=== PATIENT | female | born 1945 | race Caucasian/White ===

== ENCOUNTER → 2019-08-16 10:46 | Outpatient (BNVA) | payer MEDICARE, OTHER, SELFPAY | PROVIDERS: Visit Provider Family Medicine | DX: E78.5 Hyperlipidemia, unspecified (principal); F41.9 Anxiety disorder, unspecified; E55.9 Vitamin D deficiency, unspecified; E05.90 Thyrotoxicosis, unspecified without thyrotoxic crisis or storm; K21.9 Gastro-esophageal reflux disease without esophagitis; E78.2 Mixed hyperlipidemia | CPT/HCPCS: 80053; 80061; 82306; 84439; 84443; 84481; 85025 ==

== ENCOUNTER → 2019-08-22 16:56 | Outpatient (BNVA) | payer MEDICARE, OTHER, SELFPAY | PROVIDERS: Visit Provider Family Medicine | DX: R50.9 Fever, unspecified (principal); B34.9 Viral infection, unspecified | CPT/HCPCS: 87804 ==

== ENCOUNTER → 2019-09-07 08:57 | Outpatient (BNVA) | payer MEDICARE, OTHER, SELFPAY | PROVIDERS: Visit Provider Nurse Practitioner Family | DX: B34.9 Viral infection, unspecified (principal); N30.20 Other chronic cystitis without hematuria | CPT/HCPCS: 81001 ==

== ENCOUNTER → 2020-01-27 09:53 | Outpatient (BNVA) | payer MEDICARE, OTHER, SELFPAY | PROVIDERS: PCP Family Medicine; Visit Provider Internal Medicine | DX: E05.10 Thyrotoxicosis with toxic single thyroid nodule without thyrotoxic crisis or storm (principal); E04.2 Nontoxic multinodular goiter; M89.9 Disorder of bone, unspecified | CPT/HCPCS: 99203 ==

== ENCOUNTER → 2020-02-06 11:23 | Outpatient (BNVA) | payer MEDICARE, OTHER, SELFPAY | PROVIDERS: PCP Family Medicine; Visit Provider Family Medicine | DX: I10 Essential (primary) hypertension (principal); E78.2 Mixed hyperlipidemia; E05.10 Thyrotoxicosis with toxic single thyroid nodule without thyrotoxic crisis or storm | CPT/HCPCS: 80053; 80061; 84439; 84443; 84480; 85025 ==

== ENCOUNTER 2020-02-15 11:35 | Outpatient (CLI) | payer MEDICARE, OTHER, SELFPAY ==
--- NOTE | 2020-02-15 11:45 | US_ITS ---
WS: [id number] THYROID ULTRASOUND HISTORY: thyroid nodules COMPARISON: 12/16/2016 Right lobe: 5.0 cm x 2.5 cm x 2.1 cm. Volume: 13.2 cm3. Moderately enlarged gland. There are several mixed cystic and solid nodules throughout the thyroid. I n the mid gland there is a 2.7 x 1.7 x 2.1 cm mass with solid and cystic components and increased vas cularity. Smaller solid nodule in the inferior pole measures 1.2 x 0.8 x 1.0 cm. Left lobe: 5.0 cm x 1.8 cm x 2.1 cm. Volume: 10.0 cm3. Mildly enlarged gland with variable heterogeneity. There are cystic and solid components. Cystic nodu le with a solid component in the mid LEFT gland measures 1.1 x 0.8 x 1.0 cm and is stable. There are additional solid and cystic nodules. Isthmus: 0.4 cm. US/US thyroid 62595 IMPRESSION: Multinodular goiter. There are multiple masses bilaterally which demonstrate mi nimal progression since 12/16/2016. Cannot exclude malignancy. Fine-needle aspir ation can be performed on the most concerning nodule in the RIGHT lobe if clini ambrose thought relevant at this time. This was also recommended on the prior heather dy from 2017.
== END 2020-02-15 11:36 | disposition home or self-care (01) ==
LOC: RAD 11:37
PROVIDERS: PCP Family Medicine; Visit Provider Internal Medicine
DX: E04.2 Nontoxic multinodular goiter (principal)
CPT/HCPCS: 76536

== ENCOUNTER → 2020-02-28 08:11 | Outpatient (BNVA) | payer MEDICARE, OTHER, SELFPAY | PROVIDERS: PCP Family Medicine; Visit Provider Internal Medicine | DX: E04.2 Nontoxic multinodular goiter (principal); E05.90 Thyrotoxicosis, unspecified without thyrotoxic crisis or storm; M85.80 Other specified disorders of bone density and structure, unspecified site | CPT/HCPCS: 99214 ==

== ENCOUNTER → 2020-05-21 08:23 | Outpatient (BNVA) | payer MEDICARE, OTHER, SELFPAY | PROVIDERS: PCP Family Medicine; Visit Provider Internal Medicine | DX: E05.90 Thyrotoxicosis, unspecified without thyrotoxic crisis or storm (principal) | CPT/HCPCS: 84439; 84443; 84480 ==

== ENCOUNTER → 2020-05-29 08:11 | Outpatient (BNVA) | payer MEDICARE, OTHER, SELFPAY | PROVIDERS: PCP Family Medicine; Visit Provider Internal Medicine | DX: E04.2 Nontoxic multinodular goiter (principal); E05.90 Thyrotoxicosis, unspecified without thyrotoxic crisis or storm; M85.89 Other specified disorders of bone density and structure, multiple sites | CPT/HCPCS: 99214 ==

== ENCOUNTER → 2020-08-22 10:20 | Outpatient (BNVA) | payer MEDICARE, OTHER, SELFPAY | PROVIDERS: PCP Family Medicine; Visit Provider Internal Medicine | DX: E05.90 Thyrotoxicosis, unspecified without thyrotoxic crisis or storm (principal); E04.2 Nontoxic multinodular goiter | CPT/HCPCS: 83516; 84439; 84443; 84480 ==

== ENCOUNTER → 2020-08-28 08:45 | Outpatient (BNVA) | payer MEDICARE, OTHER, SELFPAY | PROVIDERS: PCP Family Medicine; Visit Provider Internal Medicine | DX: E04.2 Nontoxic multinodular goiter (principal); E05.90 Thyrotoxicosis, unspecified without thyrotoxic crisis or storm; K21.9 Gastro-esophageal reflux disease without esophagitis | CPT/HCPCS: 99214 ==

== ENCOUNTER → 2020-09-06 09:58 | Outpatient (BNVA) | payer MEDICARE, OTHER, SELFPAY | PROVIDERS: PCP Family Medicine; Visit Provider Nurse Practitioner Family | DX: N30.20 Other chronic cystitis without hematuria (principal); E05.90 Thyrotoxicosis, unspecified without thyrotoxic crisis or storm; E04.2 Nontoxic multinodular goiter | CPT/HCPCS: 81003; 87077; 87086; 87184 ==

== ENCOUNTER 2020-09-24 06:51 | Outpatient (CLI) | payer MEDICARE, OTHER, SELFPAY ==
--- NOTE | 2020-09-24 07:15 | US_ITS ---
WS: [id number] THYROID ULTRASOUND (TI-RADS CRITERIA) History: 02/15/2020 and 12/16/2016. Technique: Ultrasound examination of the thyroid and adjacent soft tissues is performed. FINDINGS: Right lobe: 4.9 cm x 2.2 cm x 2.4 cm. Volume: 13.8 cm3. Enlarged RIGHT thyroid do to a large hypervascular nodule. Large nodule replacing nearly the entire g land. Small adjacent subcentimeter lymph nodes. NODULE: 1 Size: 2.1 x 2.2 x 2.9 cm Location: Mid RIGHT Composition: Mixed cystic and solid (1) Echogenicity: Hypoechoic (2) Shape: Not taller than wide (0) Margins: Extra-thyroidal extension (3) Echogenic foci: Punctate echogenic foci (3) ACR TI-RADS total points: 9 ACR TI-RADS risk category: TR5 Left lobe: 4.6 cm x 1.4 cm x 1.9 cm. Volume: 6.2 cm3. Normal size and echotexture. No significant or dominant nodules are present. NODULE: 3 Size: 1.0 x 0.7 x 1.2 cm. Location: Mid LEFT. Composition: Mixed cystic and solid (1) Echogenicity: Hypoechoic (2) Shape: Not taller than wide (0) Margins: Smooth (0) Echogenic foci: None (0) ACR TI-RADS total points: 3 ACR TI-RADS risk category: TR3 Isthmus: 0.7 cm. Nodule in the isthmus. NODULE: 2 Size: 1.4 x 0.7 x 1.7 cm. Location: Mid isthmus. Composition: Solid/almost completely solid (2) Echogenicity: Hypoechoic (2) Shape: Not taller than wide (0) Margins: Smooth (0) Echogenic foci: None (0) ACR TI-RADS total points: 4 ACR TI-RADS risk category: TR4 US/US thyroid 30845 Impression: TR5 Recommendation:Yara suspicious for malignancy. By history this nodule has been biopsied and was negative. Some of the margins are very lobulated and there ar e increasing calcifications. Consider surgical removal. If thyroid nodule(s) change on follow-up examinations the recommendations will be altered as necessary.
== END 2020-09-24 06:52 | disposition home or self-care (01) ==
LOC: RAD 06:58
PROVIDERS: PCP Family Medicine; Visit Provider Internal Medicine
DX: E04.2 Nontoxic multinodular goiter (principal)
CPT/HCPCS: 76536

== ENCOUNTER → 2020-09-27 13:46 | Outpatient (BNVA) | payer MEDICARE, OTHER, SELFPAY | PROVIDERS: PCP Family Medicine; Visit Provider Nurse Practitioner Family | DX: N30.20 Other chronic cystitis without hematuria (principal); R30.0 Dysuria | CPT/HCPCS: 81003 ==

== ENCOUNTER → 2020-10-12 10:32 | Outpatient (BNVA) | payer MEDICARE, OTHER, SELFPAY | PROVIDERS: PCP Family Medicine; Visit Provider Otolaryngology | DX: Z20.822 Contact with and (suspected) exposure to COVID-19 (principal); Z11.52 Encounter for screening for COVID-19; Z01.812 Encounter for preprocedural laboratory examination | CPT/HCPCS: 87635 ==

== ENCOUNTER 2020-10-17 06:28 | Day surgery (SDC) | payer MEDICARE, OTHER, SELFPAY ==
[2020-10-16 18:09] VITALS: BMI 24.7
[2020-10-17] VITALS (13 sets, daily range): BP systolic 125–158; BP diastolic 56–112; PULSE 95–106; RESP 16–18; TEMP 36.4–36.6; O2SAT 90–96
--- NOTE | 2020-10-17 06:36 | ECG_ITS ---
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
[2020-10-17] MEDS: sodium chloride 0.9% 1,000 ML 30 ML IV (06:50)
--- NOTE | 2020-10-17 07:36 | W.PM.OPSUD ---
Surgery/Procedure H&P Update DATE OF PROCEDURE: October 17, 2020 DATE H&P PERFORMED: 10/04/20 H&P UPDATE INFORMATION: I have reviewed H&P completed within last 30 days, I have examined patient prior to procedure and No changes to prior documentation PREOP DIAGNOSIS: Right thyroid mass PRIMARY INDICATION FOR PROCEDURE: Right thyroid nodule PLANNED PROCEDURE: Operation Date: 10/17/20 08:40 Proposed Procedures p RIGHT THYROID LOBECTOMY 14801 e04.1(Not Applicable) - Blas Burton MD
--- NOTE | 2020-10-17 07:36 | ANES.PREANE2 ---
Pre-Anesthetic Assessment Pre-Anesthetic Assessment: Height/Weight: Height 1.63 m Weight 65.317 kg Preop Diagnosis: Right thyroid mass Proposed Procedure: Operation Date: 10/17/20 08:40 Proposed Procedures p RIGHT THYROID LOBECTOMY 98926 e04.1(Not Applicable) - Blas Burton MD Was Beta Radha taken within 24 hours: N/A Was Clonidine taken within 24 hours: N/A Last intake: Intake Last Liquid Date 10/16/20 Last Liquid Time 21:00 Last Solid Date 10/16/20 Last Solid Time 17:00 Social: Social History: No alcohol and No tobacco Exam: Pre-Anes Outpt Exam: alert, oriented x 3, clear to auscultation bilaterally and regular rate & rhythm Airway: Submandibular: WNL Cervical ROM: WNL MP: 2 Dentition: Full CV/HEM: CV/HEM: HTN GI: GI: GERD Metabolic: Metabolic: Thyroid Neuropsych: Neuropsych: Anxiety Anesthetic Plan: ASA status: 2 Anesthesia: General Risk of > 500 ml blood loss (7ml/kg in children): No PFSH Anesthesia PFSH: Medical History Chronic cystitis GERD (gastroesophageal reflux disease) Hyperlipidemia Hypertension Situational anxiety Takotsubo cardiomyopathy Vitamin D deficiency Surgical History History of cholecystectomy (~1988) History of tubal ligation (~1979) Family History Mother , AT AGE 97 COLON CANCER Cancer Father , AT AGE 72 CHF No problems noted. Sister Cancer Social History Smoking and tobacco status: never smoked Alcohol intake: never Adopted: No Caregiver/support person: No Lives independently: No Household members: spouse Marital status: Current occupational status: unemployed History of recent travel: No Current gender identity: Female Data Anesthesia Cardiac Studies: No Data to Display
[2020-10-17] MEDS: neomycin-poly-bacitracin oint 28 gm 1 APPLIC TOPICAL (10:08)
--- NOTE | 2020-10-17 10:12 | PM.OP ---
Operative Report Date of procedure: October 17, 2020 Pre-op Diagnosis: Right thyroid mass Post-op Diagnosis: Frozen section reveals benign necrotic solid and cystic mass with no evidence of malignancy Post-op Findings: Large multilobulated right thyroid with thick isthmus extending with mass affect across midline Procedure Done: Right thyroid lobectomy with isthmusectomy Specimens removed/disposition: Right thyroid lobe with isthmus Pathology: Entire right thyroid lobe with isthmus sent to pathology asking for frozen section and permanent pathology. Surgeon: Blas Burton Anesthesia: General and Local Estimated blood loss (mL): 30 Complications: No complications were encountered Findings: Multi lobulated right thyroid gland significantly enlarged both superior to inferior and anterior to posterior. Thick isthmus crossing midline. Condition: stable Disposition: PACU Brief History: 75-year-old female patient has had a right thyroid nodule which has been growing in size and becoming a problem for her in regards to swallowing. Always feels like there is a lump present. Scans revealed significant enlargement and wrapping around posteriorly and affecting the esophagus. Therefore this patient is being brought to the operating room to undergo a right thyroid lobectomy with isthmusectomy. The procedure its risks and complications were explained in detail. These risks include bleeding infection numbness scarring swelling bruising scarring postoperative bleeding hoarseness which could be temporary or permanent due to manipulation of the right recurrent laryngeal nerve. This could be temporary or permanent. This could lead to a breathy voice quality. Also could lead to problems with aspiration. More serious risk such as heart attack or stroke or not surviving the surgery were also discussed. With these things understood informed consent was granted. Procedure: Description of procedure: The patient was placed on the operating table in the supine position. Adequate general endotracheal tube anesthesia was obtained. She was given Ancef IV for prophylaxis. She was positioned with a shoulder roll under the shoulders and a doughnut under her head. This positioned the neck in a perfect position. The right neck was noted and the area was cleansed with alcohol. 5 mL of 2% Xylocaine with 1-100,000 epinephrine was utilized to infiltrate the skin from the right side across the midline to the left. The patient was then prepped with ChloraPrep and draped. A timeout was accomplished identifying the patient at plan procedure allergies fire risk and medications given. With all in agreement the procedure continued. A marking pen was used to outline a curvilinear incision in the lower neck skin crease line that had previously been infiltrated with local. The cut mode of the Bovie was used to cut through the skin and then the coagulation mode of the Bovie was used to carry down the incision through subcutaneous fat to the platysma muscle edges and these were cut for short distance on both sides. A subplatysmal flap was then raised superiorly to the area of the hyoid bone. The strap muscles were identified and the median raphae identified and using that median raphae the dissection was carried out uncovering the thyroid gland and the thyroid cartilage and trachea. This was done obviously more on the right side than the left. The isthmus of the thyroid is was extremely thick and lobulated and therefore it was decided to cut the isthmus at the junction with the left thyroid lobe and this was done with the cautery and bipolar cautery and clipping was where necessary to control bleeding. Then the dissection was carried over the top of the trachea elevating the isthmus portion. Then the dissection was carried out in a broad pattern from superior inferior and lateral. An Allis clamp was placed placed to the body of the right thyroid gland and this was retracted anteriorly releasing the large mass-effect of the right thyroid gland and nodules. Careful dissection was carried out posteriorly and laterally identifying nerve and vessels to the parathyroids and maintaining all important vessels. Larger vessels were clamped with clips and then cut. Smaller vessels were cauterized with bipolar cautery. As the dissection neared the insert of the nerve into the larynx only blunt dissection was carried out with no further cautery. Specimen was finally released and sent to the pathologist for frozen section diagnosis. The defect from the surgery was evaluated and irrigated with sterile water. Any bleeding that was encountered was cauterized. There was a little ooze at the insert of the recurrent nerve and therefore some Surgicel was placed at that location with pressure applied. There was no active bleeding encountered. It was felt that no drain would be necessary. While pathology was pending I closed the subcutaneous layers with interrupted 4-0 chromic. The pathology then returned as benign necrotic cystic and solid components but no evidence of malignancy. With that information the skin was closed with skin lucinda and Neosporin ointment was applied followed by a dressing. No drain was placed. The patient tolerated the procedure well and arrived in recovery in stable condition.
[2020-10-17] MEDS: ondansetron 2 mg/ML SDV 2 mL 4 MG IVP (10:36)
[2020-10-17] MEDS: fentaNYL 50 mcg/mL INJ 2mL IVP ×2 (10:36→10:41)
[2020-10-17] MEDS: metoclopramide 5 mg/mL SDV 2 mL 10 MG IVP ×2 (10:40→10:49)
[2020-10-17] MEDS: dexamethasone 4 mg/mL INJ IVP (10:55)
[2020-10-17] MEDS: diphenhydrAMINE 50 mg/mL SDV 1mL 12.5 MG IVP (11:35)
--- NOTE | 2020-10-17 14:34 | ANE.PACU2 ---
Inpatient post-anesthesia follow up: Airway intact: Yes Vital signs: Temperature 97.7 F Pulse Rate 103 Respiratory Rate 18 Blood Pressure 145/77 Pulse Oximetry 92 Oxygen Delivery Me thod Room Air Oxygen Flow Rate 8 Fraction of Inspir ed Oxygen Hydration adequate: Yes Nausea and vomiting: Yes Pain level: 2 Mental status: Baseline
== END 2020-10-17 12:44 | disposition home or self-care (01) ==
PROVIDERS: PCP Family Medicine; Visit Provider Otolaryngology
PROC: (CPT 60220; principal; 2020-10-17 08:30)
DX: E04.1 Nontoxic single thyroid nodule (principal); I10 Essential (primary) hypertension; K21.9 Gastro-esophageal reflux disease without esophagitis; F41.9 Anxiety disorder, unspecified; Z79.82 Long term (current) use of aspirin
CPT/HCPCS: 60220; 88307; 93005; J0690; J1100; J1200; J2370; J2405; J2704; J2765; J3010; J3490; J7030

== ENCOUNTER → 2020-10-30 09:35 | Outpatient (BNVA) | payer MEDICARE, OTHER, SELFPAY | PROVIDERS: PCP Family Medicine; Visit Provider Family Medicine | DX: E05.90 Thyrotoxicosis, unspecified without thyrotoxic crisis or storm (principal); Z90.09 Acquired absence of other part of head and neck; F41.9 Anxiety disorder, unspecified | CPT/HCPCS: 84439; 84443; 84481 ==

== ENCOUNTER → 2021-01-23 11:21 | Outpatient (BNVA) | payer MEDICARE, OTHER, SELFPAY | PROVIDERS: PCP Family Medicine; Visit Provider Urology | DX: N30.20 Other chronic cystitis without hematuria (principal) | CPT/HCPCS: 81003; 87077; 87086; 87184 ==

== ENCOUNTER 2021-02-25 09:58 | Outpatient (CLI) | payer MEDICARE, OTHER, SELFPAY ==
[2021-02-25 10:24] VITALS: BP 126/73; PULSE 57; RESP 16; TEMP 37.1; O2SAT 98; BMI 23.8
[2021-02-25 10:58] VITALS: BP 118/67; PULSE 82; RESP 16; TEMP 36.9; O2SAT 93
[2021-02-25 11:58] VITALS: BP 119/58; PULSE 81; RESP 16; TEMP 36.9
== END 2021-02-25 09:59 | disposition home or self-care (01) ==
LOC: OPS 10:02
PROVIDERS: PCP Family Medicine; Visit Provider Physician Assistant
DX: U07.1 COVID-19 (principal)
CPT/HCPCS: 96365

== ENCOUNTER → 2021-04-17 11:26 | Outpatient (BNVA) | payer MEDICARE, OTHER, SELFPAY | PROVIDERS: PCP Family Medicine; Visit Provider Family Medicine | DX: E04.2 Nontoxic multinodular goiter (principal); E78.2 Mixed hyperlipidemia; F41.8 Other specified anxiety disorders; I10 Essential (primary) hypertension; K21.9 Gastro-esophageal reflux disease without esophagitis | CPT/HCPCS: 80053; 80061; 84436; 84443; 84481; 85025 ==

== ENCOUNTER → 2021-05-31 10:25 | Outpatient (BNVA) | payer MEDICARE, OTHER, SELFPAY | PROVIDERS: PCP Family Medicine; Visit Provider Internal Medicine | DX: E04.2 Nontoxic multinodular goiter (principal); E05.90 Thyrotoxicosis, unspecified without thyrotoxic crisis or storm; M81.0 Age-related osteoporosis without current pathological fracture; M85.89 Other specified disorders of bone density and structure, multiple sites; Z90.09 Acquired absence of other part of head and neck | CPT/HCPCS: 99214 ==

== ENCOUNTER → 2021-07-22 10:09 | Outpatient (BNVA) | payer MEDICARE, OTHER, SELFPAY | PROVIDERS: PCP Family Medicine; Visit Provider Nurse Practitioner Family | DX: N30.20 Other chronic cystitis without hematuria (principal) | CPT/HCPCS: 81003 ==

== ENCOUNTER → 2021-08-07 08:39 | Outpatient (BNVA) | payer MEDICARE, OTHER, SELFPAY | PROVIDERS: PCP Family Medicine; Visit Provider Internal Medicine | DX: E04.2 Nontoxic multinodular goiter (principal); E05.90 Thyrotoxicosis, unspecified without thyrotoxic crisis or storm; M81.0 Age-related osteoporosis without current pathological fracture; M85.89 Other specified disorders of bone density and structure, multiple sites; Z90.09 Acquired absence of other part of head and neck | CPT/HCPCS: 84439; 84443; 84480 ==

== ENCOUNTER → 2021-08-14 08:32 | Outpatient (BNVA) | payer MEDICARE, OTHER, SELFPAY | PROVIDERS: PCP Family Medicine; Visit Provider Internal Medicine | DX: E04.2 Nontoxic multinodular goiter (principal); E05.90 Thyrotoxicosis, unspecified without thyrotoxic crisis or storm; M81.0 Age-related osteoporosis without current pathological fracture; Z90.09 Acquired absence of other part of head and neck | CPT/HCPCS: 99214 ==

== ENCOUNTER 2021-08-20 10:37 | Outpatient (CLI) | payer MEDICARE, OTHER, SELFPAY ==
--- NOTE | 2021-08-20 10:30 | XR_ITS ---
WS: [id number] SCREENING DEXA SCAN [employer] CLINICAL INFORMATION: nodules, and partial thyroidectomy COMPARISON: None. FINDINGS: Moderate lumbar curve. The L1-L4 bone mineral density measures 1.135 g/cm2. This corresponds to a T score score of -0.4 and Z score of 1.4. Left femoral neck bone mineral density measures 0.741 g/cm2. This corresponds to a T score of -2.1 an d Z score of -0.3. Right femoral neck bone mineral density measures 0.679 g/cm2. This corresponds to a T score -2.6of an d Z score of -0.8. Mean femoral neck bone mineral density measures 0.710 g/cm2. This corresponds to a T score of -2.4 an d Z score of -0.5. XR/XR DEXA axial skeleton* [id number] IMPRESSION: Osteopenia approaching osteoporosis in the femoral necks. Normal bone mineraliz ation the lumbar spine although likely spuriously elevated due to endplate scle rosis Patient's FRAX calculated 10 year probability for major osteoporotic fracture i s 17.4 % and osteoporotic hip fracture is 5.6%.
== END 2021-08-20 10:38 | disposition home or self-care (01) ==
LOC: RAD 10:43
PROVIDERS: PCP Family Medicine; Visit Provider Internal Medicine
DX: E04.2 Nontoxic multinodular goiter (principal); E89.0 Postprocedural hypothyroidism; M85.88 Other specified disorders of bone density and structure, other site
CPT/HCPCS: 77080

== ENCOUNTER → 2021-09-13 10:25 | Outpatient (BNVA) | payer MEDICARE, OTHER, SELFPAY | PROVIDERS: PCP Family Medicine; Visit Provider Internal Medicine | DX: M81.0 Age-related osteoporosis without current pathological fracture (principal); E04.1 Nontoxic single thyroid nodule; E78.5 Hyperlipidemia, unspecified; M85.89 Other specified disorders of bone density and structure, multiple sites; I10 Essential (primary) hypertension; E04.2 Nontoxic multinodular goiter; E05.90 Thyrotoxicosis, unspecified without thyrotoxic crisis or storm; Z90.09 Acquired absence of other part of head and neck | CPT/HCPCS: 99214 ==

== ENCOUNTER → 2021-09-17 10:23 | Outpatient (BNVA) | payer MEDICARE, OTHER, SELFPAY | PROVIDERS: PCP Family Medicine; Visit Provider Internal Medicine | DX: E55.9 Vitamin D deficiency, unspecified (principal); M81.0 Age-related osteoporosis without current pathological fracture; M85.89 Other specified disorders of bone density and structure, multiple sites; E04.1 Nontoxic single thyroid nodule; E78.5 Hyperlipidemia, unspecified; Z90.09 Acquired absence of other part of head and neck; I10 Essential (primary) hypertension | CPT/HCPCS: 80053; 80061; 82306; 82310; 83970; 84439; 84443; 85025 ==

== ENCOUNTER 2021-10-07 09:25 | Outpatient (CLI) | payer MEDICARE, OTHER, SELFPAY ==
--- NOTE | 2021-10-07 09:31 | MM_ITS ---
WS: [id number] BILATERAL 3D TOMOSYNTHESIS DIGITAL SCREENING MAMMOGRAPHY WITH CAD CLINICAL INFORMATION: SCREENING HISTORY: Screening mammogram. No current complaints. COMPARISON: TECHNIQUE: Bilateral CC and MLO views. FINDINGS: Scattered fibroglandular densities bilaterally. Punctate and lucent centered calcifications. Nodular breast tissue subareolar LEFT breast similar to previous. No suspicious focal mass, asymmetry, calcif ications, or architectural distortion. No evidence of malignancy. MM/[place] [address] IMPRESSION: BI-RADS: 2-Benign FOLLOW UP: 1 Year Follow-up Recommend return to annual screening mammography.
== END 2021-10-07 09:26 | disposition home or self-care (01) ==
LOC: RADSHAW 09:27
PROVIDERS: PCP Family Medicine; Visit Provider Family Medicine
DX: Z12.31 Encounter for screening mammogram for malignant neoplasm of breast (principal)
CPT/HCPCS: 77063; 77067

== ENCOUNTER → 2021-11-11 08:55 | Outpatient (BNVA) | payer MEDICARE, OTHER, SELFPAY | PROVIDERS: PCP Family Medicine; Visit Provider Internal Medicine | DX: E04.1 Nontoxic single thyroid nodule (principal); E05.90 Thyrotoxicosis, unspecified without thyrotoxic crisis or storm; E55.9 Vitamin D deficiency, unspecified; E78.2 Mixed hyperlipidemia; M81.0 Age-related osteoporosis without current pathological fracture; Z90.09 Acquired absence of other part of head and neck | CPT/HCPCS: 82306; 82310; 83970; 84439; 84443 ==

== ENCOUNTER → 2022-01-07 13:49 | Outpatient (BNVA) | payer MEDICARE, OTHER, SELFPAY | PROVIDERS: PCP Family Medicine; Visit Provider Nurse Practitioner Family | DX: M25.551 Pain in right hip (principal) | CPT/HCPCS: 73502 ==

== ENCOUNTER → 2022-01-28 09:24 | Outpatient (BNVA) | payer MEDICARE, OTHER, SELFPAY | PROVIDERS: PCP Family Medicine; Visit Provider Orthopaedic Surgery | DX: M16.11 Unilateral primary osteoarthritis, right hip (principal) | CPT/HCPCS: 99203 ==

== ENCOUNTER → 2022-02-06 09:30 | Outpatient (BNVA) | payer MEDICARE, OTHER, SELFPAY | PROVIDERS: PCP Family Medicine; Visit Provider Internal Medicine | DX: E04.1 Nontoxic single thyroid nodule (principal); E05.90 Thyrotoxicosis, unspecified without thyrotoxic crisis or storm; E78.5 Hyperlipidemia, unspecified | CPT/HCPCS: 80048; 84439; 84443 ==

== ENCOUNTER → 2022-02-12 08:30 | Outpatient (BNVA) | payer MEDICARE, OTHER, SELFPAY | PROVIDERS: PCP Family Medicine; Visit Provider Internal Medicine | DX: E04.1 Nontoxic single thyroid nodule (principal); E04.2 Nontoxic multinodular goiter; E05.90 Thyrotoxicosis, unspecified without thyrotoxic crisis or storm; I10 Essential (primary) hypertension; E78.5 Hyperlipidemia, unspecified; M81.0 Age-related osteoporosis without current pathological fracture; Z90.09 Acquired absence of other part of head and neck | CPT/HCPCS: 99214 ==

== ENCOUNTER 2022-04-07 14:32 | Outpatient (CLI) | payer MEDICARE, OTHER, SELFPAY ==
--- NOTE | 2022-04-07 14:48 | MR_ITS ---
WS: [id number] MRI RIGHT HIP NONCONTRAST TECHNIQUE: Axial T1, axial T2 fat sat, coronal T1, coronal STIR, sagittal T2 fat sat, sagittal T1, an d sagittal T2 fat sat, of both hips. CLINICAL INFORMATION: pain COMPARISON: None. FINDINGS: Moderate degenerative arthritis RIGHT hip with joint space narrowing. Subchondral cystic change invol ving the femoral head. Joint space narrowing. No acute fractures. Normal femoral necks. Normal visual ized acetabulum. No evidence of avascular necrosis or femoral head collapse. Normal visualized RIGHT pubic rami. Normal visualized sacrum and sacral ala. No insufficiency fractures. Normal visualized RIGHT groin so ft tissues. Partially evaluated calcified uterine fibroid measuring 11 x 8 mm MR/MR hip RT wo con* [id number] IMPRESSION: 1. No acute RIGHT hip findings. 2. Moderate degenerative arthritis RIGHT hip with joint space narrowing and mendez bchondral cystic change. 3. No evidence of avascular necrosis or acute fracture.
== END 2022-04-07 14:33 | disposition home or self-care (01) ==
LOC: RAD 14:33
PROVIDERS: PCP Family Medicine; Visit Provider Orthopaedic Surgery
DX: M16.11 Unilateral primary osteoarthritis, right hip (principal)
CPT/HCPCS: 73721

== ENCOUNTER → 2022-05-06 08:09 | Outpatient (BNVA) | payer MEDICARE, OTHER, SELFPAY | PROVIDERS: PCP Family Medicine; Visit Provider Orthopaedic Surgery | DX: M16.11 Unilateral primary osteoarthritis, right hip (principal) | CPT/HCPCS: 99213 ==

== ENCOUNTER → 2022-07-04 12:52 | Outpatient (BNVA) | payer MEDICARE, OTHER, SELFPAY | PROVIDERS: PCP Family Medicine; Visit Provider Nurse Practitioner Family | DX: R13.10 Dysphagia, unspecified (principal); E55.9 Vitamin D deficiency, unspecified; I10 Essential (primary) hypertension; M85.89 Other specified disorders of bone density and structure, multiple sites | CPT/HCPCS: 80053; 80061; 82306; 84439; 84443; 85025 ==

== ENCOUNTER → 2022-07-15 13:47 | Outpatient (BNVA) | payer MEDICARE, OTHER, SELFPAY | PROVIDERS: PCP Family Medicine; Visit Provider Internal Medicine Cardiovascular Disease | DX: I10 Essential (primary) hypertension (principal); I51.81 Takotsubo syndrome; E78.2 Mixed hyperlipidemia; M81.0 Age-related osteoporosis without current pathological fracture | CPT/HCPCS: 99214; Q3014 ==

== ENCOUNTER → 2022-07-21 13:03 | Outpatient (BNVA) | payer MEDICARE, OTHER, SELFPAY | PROVIDERS: PCP Family Medicine; Visit Provider Urology | DX: Z87.440 Personal history of urinary (tract) infections (principal) | CPT/HCPCS: 81003; 99213 ==

== ENCOUNTER 2022-08-04 19:56 | Observation (INO) | payer MEDICARE, OTHER, SELFPAY ==
[2022-08-04] VITALS (26 sets, daily range): BP systolic 105–156; BP diastolic 64–114; PULSE 69; RESP 16–17; O2SAT 93–99; BMI 24.0
--- NOTE | 2022-08-04 20:12 | ECG_ITS ---
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 Measurements Intervals [place] Rate: 70 P: 55 [place]: 134 QRS: 65 QRSD: 89 T: 65 QT: 381 QTc: 411 Interpretive Statements SINUS RHYTHM Compared to ECG 10/17/2020 06:46:38 No significant changes Electronically Signed On 08-04-2022 20:35:29 [employer] by Macey Castro M.D. [id number]
--- NOTE | 2022-08-04 20:12 | XRR_ITS ---
PROCEDURE INFORMATION: Exam: XR Chest Exam date and time: 08/04/2022 8:32 PM Age: 77 years old Clinical indication: Pain; Chest pressure; Additional info: Cp TECHNIQUE: Imaging protocol: Radiologic exam of the chest. Views: 1 view. COMPARISON: CR XR chest 1V [id number] 12/14/2017 9:28 PM FINDINGS: Tubes, catheters and devices: Clips in the neck. Lungs: Calcified granuloma and mild atelectasis in the left lung base. The right lung is clear. Pleural spaces: Unremarkable. No pleural effusion. No pneumothorax. Heart/Mediastinum: Unremarkable. No cardiomegaly. Bones/joints: Unremarkable. XR/XR chest 1V portable [id number] IMPRESSION: No acute findings.
--- NOTE | 2022-08-04 20:26 | ED_ITS ---
HPI - Chest Pain General: Chief Complaint: ER Hold Stated Complaint: CP Time Seen by Provider: 08/04/22 20:26 History of Present Illness: Ms. Meehan is a 77-year-old lady with history of Takotsubo cardiomyopathy (2015), GERD, hypertension, hyperlipidemia, thyroid disorder presenting to the emergency department due to chest pain. She reports being at her baseline health and had onset of symptoms while at rest watching a game. She describes severe subacute in onset substernal chest heaviness associated with presyncope, nausea, vomiting, and generalized malaise. She notes radiation to the arm and neck and apparently appeared diaphoretic. She did have some improvement with nitroglycerin. Intensity symptoms at worst was moderate to severe. Course is improved though still present. No other specific changes in health, exacerbating, or alleviating factors identified. She does endorse rare history of similar episodes which typically go away with position changes and what she describes as massaging her ribs. This episode however did not. Onset (ago): hour(s) Onset: during rest Pain location: substernal Pain radiation: right arm, left arm and neck Severity: severe Quality: tightness Associated symptoms: Reports diaphoresis, dyspnea, nausea and other Review of Systems General: Reports: 10 or more systems reviewed and unremarkable except in HPI and below Const: Reports: diaphoresis Resp: Reports: dyspnea GI: Reports: nausea PFSH ED PFSH: Medical History Chest pain Chronic cystitis Dysphagia GERD (gastroesophageal reflux disease) History of COVID-19 Hyperlipidemia Hypertension Situational anxiety Takotsubo cardiomyopathy Unstable angina pectoris Vertigo Vitamin D deficiency Surgical History History of cholecystectomy (~1988) History of partial thyroidectomy History of tubal ligation (~1979) Family History Mother , AT AGE 97 COLON CANCER Cancer Father , AT AGE 72 CHF No problems noted. Sister Cancer Social History Smoking and tobacco status: never smoked Alcohol intake: never Adopted: No Caregiver/support person: No Lives independently: No Household members: spouse Marital status: Current occupational status: unemployed and retired Current gender identity: Female Physical Exam Const: COMMON NORMALS: alert GENERAL APPEARANCE: cooperative and well developed HENMT: COMMON NORMALS: normocephalic and atraumatic HEAD & SCALP: normocephalic and atraumatic Eye: COMMON NORMALS: conjunctivae normal CONJUNCTIVA: Yes conjunctivae normal SCLERA: sclerae normal Neck/C-Spine: COMMON NORMALS: supple GENERAL: Yes trachea midline Resp: COMMON NORMALS: clear to auscultation bilaterally EFFORT & INSPECTION: Yes able to speak in complete sentences AUSCULTATION: clear to auscultation bilaterally Cardio: COMMON NORMALS: regular rate and regular rhythm RATE: regular rate RHYTHM: regular rhythm GI: COMMON NORMALS: Soft to palpation PALPATION: Yes Soft to palpation and No Tenderness to palpation present (GI) Extremity: GENERAL: Yes normal exam except as noted and No edema Neuro: COMMON NORMALS: moves all extremities SENSORIUM/ORIENTATION: Yes alert and No Orientation impaired Psych: COMMON NORMALS: mental status grossly normal and Normal thought process present THOUGHT PROCESS: Normal thought process present Course Vital Signs: Vital signs: Vital Signs Pulse Rate 72 08/05/22 18:12 Respiratory Rate 14 08/05/22 16:00 Blood Pressure 124/53 08/05/22 18:12 Pulse Oximetry 98 08/05/22 18:12 Oxygen Delivery Me thod 08/05/22 16:00 MDM - Chest Pain Medical Decision Making 77-year-old lady with cardiac history presenting with chest pain that is all present with typical symptoms that began at rest. EKG notable for sinus rhythm, normal axis and intervals, no STEMI. Similar upon repeat. No significant hematologic or metabolic abnormalities to explain symptoms, mild transaminitis of uncertain significance. Negative range 2-hour delta troponin. Chest x-ray with no lobar consolidation or pneumothorax. Given transaminitis ultrasound ordered, no evidence of choledocholithiasis. Patient treated in the emergency [place] with GI cocktail, analgesia, nitroglycerin, antiemetic. Most likely etiology of patient symptoms is chest pain with a concerning clinical history for cardiac etiology in a patient that is not low risk by heart score. The results of ED evaluation were discussed with the patient including plan for admission due to requirement for level of care not available if discharged to prevent significant worsening/deterioration. Patient agreeable with plan. Discussed with hospitalist service who was agreeable to admit patient. Medical Records I reviewed the patient's medical records. Lab Data I reviewed the patient's lab results. 08/04/22 20:30 08/04/22 20:30 Radiology Impressions Chest X-Ray 08/04/22 20:12 IMPRESSION: No acute findings. Gallbladder Ultrasound 08/04/22 21:41 IMPRESSION: 1. Absent gallbladder with no definite acute finding. 2. 1.5 cm CBD, which may be due to postop status and/or age. Advise correlation. Modified Barium Swallow 08/05/22 08:21 IMPRESSION: No significant swallowing deficiency. Please see speech therapist report also for recommendations. Laboratory Results WBC 10.0 10^3/uL (4.0-10.0) 08/04/22 20: RBC 4.07 10^6/uL (4.1-5.3) L 08/04/22 20: Hgb 11.5 g/dL (11.5-15.3) 08/04/22 20: Hct 37.0 % (37.0-47.0) 08/04/22 20: MCV 90.9 fl (81-99) 08/04/22 20: MCH 28.3 pg (28.0-34.0) 08/04/22 20: MCHC 31.1 g/dL (30.0-36.0) 08/04/22 20: RDW 13.7 % (12.1-15.1) 08/04/22 20: Plt Count 315 10^3/cmm (130-400) 08/04/22 20: MPV 10.1 fL (7.4-10.4) 08/04/22 20: Neut % (Auto) 59.3 % 08/04/22 20: Lymph % (Auto) 26.4 % 08/04/22 20: Dougherty % (Auto) 10.5 % 08/04/22 20: Eos % (Auto) 2.8 % 08/04/22 20: Baso % (Auto) 0.3 % 08/04/22 20: Neut # (Auto) 5.91 10^3/uL (1.8-7.7) 08/04/22 20: Lymph # (Auto) 2.6 10^3/uL (0.8-4.8) 08/04/22 20:30 Dougherty # (Auto) 1.1 10^3/uL (0.2-0.9) H 08/04/22 20:30 Eos # (Auto) 0.3 10^3/uL (0.0-0.8) 08/04/22 20:30 Baso # (Auto) 0.0 10^3/uL (0.0-0.1) 08/04/22 20:30 Nucleated RBC % (auto) 0 % 08/04/22 20:30 Nucleated RBCs # 0.0 /100WBC 08/04/22 20:30 PT 12.70 SECONDS (12.1-14.9) 08/04/22 20:30 INR 0.92 (0.8-1.2) 08/04/22 20:30 Sodium 136 mmol/L (136-145) 08/04/22 20:30 Potassium 3.5 mmol/L (3.5-5.1) 08/04/22 20:30 Chloride 98 mmol/L (98-107) 08/04/22 20:30 Carbon Dioxide 26 mmol/L (22-29) 08/04/22 20:30 Anion Gap 15.5 (5-19) 08/04/22 20:30 BUN 21 mg/dL (8-23) 08/04/22 20:30 Creatinine 0.9 mg/dL (0.5-0.9) 08/04/22 20:30 GFR Calculation Not Reportable 08/04/22 20:30 Glucose 100 mg/dL (65-115) 08/04/22 20:30 Calculated Osmolality 285 mOsm/kg (285-295) 08/04/22 20:30 Calcium 8.5 mg/dL (8.5-10.5) 08/04/22 20:30 Total Bilirubin 0.2 mg/dL (0.15-1.2) 08/04/22 20:30 AST 83 U/L (0-32) H 08/04/22 20:30 ALT 39 U/L (0-33) H 08/04/22 20:30 Alkaline Phosphatase 94 U/L (35-105) 08/04/22 20:30 Troponin T Baseline 9 ng/L (0-10) 08/04/22 20:30 Troponin T 120 Minute 9.23 ng/L (0-10) 08/04/22 22:48 Delta Troponin T 0.23 ABS# (0-10) 08/04/22 22:48 Total Protein 6.1 g/dL (6.6-8.7) L 08/04/22 20:30 Albumin 3.8 g/dL (3.5-5.2) 08/04/22 20:30 Globulin 2.3 g/dL (1.3-4.6) 08/04/22 20:30 Lipase 34 U/L (13-60) 08/04/22 20:30 Influenza Type A Ag negative (Negative) 08/05/22 00:00 Influenza Type B Ag negative (Negative) 08/05/22 00:00 SARS-CoV-2 Ag (Rapid) negative (Negative) 08/05/22 00:00 Discharge Plan Discharge Patient Disposition: Placed in Observation Admit Provider: Laurie Flower Clinical Impression: Chest pain, Unstable angina pectoris Coding Level of Care Code ED Internal Control Consultant for Kei Dunham
[2022-08-04 20:39] LABS: Basophils % 0.3 %; Eosinophils # 0.3 10^3/uL (0.0-0.8); Eosinophils % 2.8 %; Hemoglobin 11.5 g/dL (11.5-15.3); Lymphocytes # 2.6 10^3/uL (0.8-4.8); Lymphocytes % 26.4 %; Mean Corpuscular HGB Conc 31.1 g/dL (30.0-36.0); Mean Corpuscular Hemoglobin 28.3 pg (28.0-34.0); Mean Corpuscular Volume 90.9 fl (81-99); Mean Platelet Volume 10.1 fL (7.4-10.4); Monocytes # 1.1 10^3/uL (0.2-0.9); Monocytes % 10.5 %; Neutrophils # 5.91 10^3/uL (1.8-7.7); Neutrophils % 59.3 %; Nucleated Red Blood Cells % 0 %; Platelet Count 315 10^3/cmm (130-400); Red Blood Count 4.07 10^6/uL (4.1-5.3); Red Cell Distribution Width 13.7 % (12.1-15.1)
[2022-08-04 20:52] LABS: INR 0.92 (0.8-1.2)
[2022-08-04 20:57] LABS: Troponin(5th) Baseline 9 ng/L (0-10)
[2022-08-04 20:59] LABS: Alanine Aminotransferase 39 U/L (0-33); Albumin Level 3.8 g/dL (3.5-5.2); Alkaline Phosphatase 94 U/L (35-105); Anion Gap 15.5 (5-19); Aspartate Amino Transferase 83 U/L (0-32); Blood Urea Nitrogen 21 mg/dL (8-23); Calcium 8.5 mg/dL (8.5-10.5); Carbon Dioxide 26 mmol/L (22-29); Chloride 98 mmol/L (98-107); Globulin 2.3 g/dL (1.3-4.6); Glucose 100 mg/dL (65-115); Osmolality Calculated 285 mOsm/kg (285-295); Potassium 3.5 mmol/L (3.5-5.1); Sodium 136 mmol/L (136-145); Total Bilirubin 0.2 mg/dL (0.15-1.2); Total Protein 6.1 g/dL (6.6-8.7)
--- NOTE | 2022-08-04 21:41 | USR_ITS ---
PROCEDURE INFORMATION: Exam: US Abdomen, Limited; Right Upper Quadrant Exam date and time: 08/04/2022 10:05 PM Age: 77 years old Clinical indication: Other: Chest pain relieved with nitroglycerin; Prior surgery; Surgery date: 6+ months; Surgery type: Cholecystectomy 1984; Additional info: Transaminitis, epigastric/chest pain TECHNIQUE: Imaging protocol: Real time ultrasound of the abdomen with image documentation. Limited exam focused on the right upper quadrant. COMPARISON: MR hip RT wo con* [id number] 04/07/2022 2:55 PM FINDINGS: Liver: The liver shows no solid mass. No visualized ascites. Gallbladder: Absent gallbladder since 1984. Biliary ducts: No evidence of intrahepatic biliary dilation. 1.5 cm CBD. Pancreas: The pancreas is not well seen due to overlying bowel gas. It shows no focal abnormality, however. Right kidney: Unremarkable. No solid renal mass or hydronephrosis. US/US gall bladder [id number] IMPRESSION: 1. Absent gallbladder with no definite acute finding. 2. 1.5 cm CBD, which may be due to postop status and/or age. Advise correlation.
[2022-08-04] MEDS: morphine 4 mg/mL SDV 1 mL IVP (21:46)
[2022-08-04 22:01] LABS: Lipase 34 U/L (13-60)
[2022-08-04] MEDS: nitroglycerin 0.4 mg sublingual Tablet SUBLINGUAL (22:15)
[2022-08-04] MEDS: ondansetron 2 mg/ML SDV 2 mL 4 MG IVP (22:22)
--- NOTE | 2022-08-04 22:33 | ECG_ITS ---
[facility] Test Date: 2022-08-04 Pat Name: Shannan Meehan Department: Room: Gender: Female Senior Risk Analyst: : 1945 Requested By: Dipti Frye Order Number: [id number] Charissa MD: Macey Castro M.D. Measurements Intervals Fred Rate: 82 P: 30 TN: 116 QRS: 62 QRSD: 82 T: 59 QT: 391 QTc: 458 Interpretive Statements SINUS RHYTHM WITH SHORT TN INTERVAL WITH OCCASIONAL SUPRAVENTRICULAR PREMATURE COMPLEXES Compared to ECG 08/04/2022 20:30:04 Short TN interval now present Electronically Signed On 08-04-2022 22:39:16 PERSONNEL SECURITY SPECIALIST by Macey Castro M.D. [email or web address] ([employer])/store/OM/[id number]
[2022-08-04] MEDS: fentaNYL 50 mcg/mL INJ 2mL 25 MCG IVP (22:56)
[2022-08-04] MEDS: alum-mag-hydroxide-sime 30 mL UDC PO (22:56)
--- NOTE | 2022-08-04 23:01 | P.HP_ITS ---
Providers/Chief Complaint Admitting Physician: Laurie Flower MD Primary Care Provider: Carine Colbert MD Chief Complaint: CP History of Present Illness Shannan Meehan is a 77 year old female with past medical history of Takotsubo cardiomyopathy 2015, GERD, hypertension, hyperlipidemia, history of goiter status post removal, anxiety presented to the ER today due to sharp chest pain i n the middle of her chest. She states that she was told in the past that she has coronary vasospasms. She had a cardiac angiogram done in 2014 which did not show any apparent blockages. She says she was told however she has had an MT in the past. She says she is on nitroglycerin as needed at home but has not had to use it in quite a while. Today she was at a ball game and suddenly developed a sharp chest pain and took 2 nitros that were given to her by nurse practitioner. She says the pain got somewhat better. She is also complained of a little bit of nausea around that time and had pain radiating to the arm and neck. She also states that she is in the process of getting EGD scheduled because she has been having some difficulty swallowing lately. She is supposed to see Dr. Urbano upcoming August 12. She says typically when she gets chest pains they do go away however this time it seems it persisted. She tries to position changes and massages her ribs and usually goes away however today it did not. She does endorse a history of acid reflux however says she is never been formally diagnosed with it. She has had a goiter in the past and had a partial thyroidectomy done. She says ever since then she feels she has trouble swallowing. In the ER on arrival 141/86, respirate 17, pulse 69, saturating 96% on room air. Patient's pain did get a little bit better on 2 nitroglycerin however did not resolve completely. She was also given fentanyl. When seen she was feeling better at the time. I ordered a GI cocktail for the patient. Troponins negative x2. Third troponin is pending at this time. Potassium 3.5, sodium 136, creatinine 0.9. Medications/Allergies Home Medications Medication Instructions Recorded Confirmed Last Taken Type aspirin 81 mg tablet,delayed 81 mg PO DAILY 08/16/19 07/21/22 10/03/20 History release cholecalciferol (vitamin D3) 125 5,000 unit PO DAILY 08/16/19 07/21/22 Unknown History mcg (5,000 unit) tablet (Vitamin D3) vit A 300 mcg-C 200 mg-E 27 1 tab PO DAILY 08/16/19 07/21/22 Unknown History mg-lutein 2 mg and minerals tablet (Vision Formula (with lutein)) krill oil 500 mg capsule 500 mg PO DAILY 02/28/20 07/21/22 Unknown History L.acid,gasseri,plant,rham-B.animalis-cran cap PO DAILY 02/28/21 07/21/22 Unknown History 5 billion cell-250mg capsule (up4 Probiotics Women's) nitroglycerin 0.4 mg sublingual 0.4 mg sublingual Q5M PRN chest 04/17/21 07/21/22 Unknown Rx tablet (Nitrostat) pain #25 tabs ezetimibe 10 mg tablet (Zetia) 10 mg PO DAILY 90 days #90 tabs 09/24/21 07/21/22 Unknown Rx alendronate 70 mg tablet (Fosamax) 70 mg PO .weekly #14 tabs 11/13/21 07/21/22 Unknown Rx omeprazole 20 mg capsule,delayed See Rx Instructions .Route 05/02/22 07/21/22 Unknown Rx release .COMPLEX #90 caps citalopram 10 mg tablet See Rx Instructions .Route 06/12/22 07/21/22 Unknown Rx .COMPLEX #90 tabs furosemide 20 mg tablet See Rx Instructions .Route 06/12/22 07/21/22 Unknown Rx .COMPLEX #90 tabs acetaminophen 650 mg 650 mg PO Q12H PRN 07/15/22 07/21/22 Unknown History tablet,extended release meloxicam 15 mg tablet 15 mg PO DAILY PRN 07/15/22 07/21/22 Unknown History meclizine 12.5 mg tablet 12.5 mg PO TID PRN 07/21/22 07/21/22 Unknown History nitrofurantoin 100 mg PO BID PRN urinary 07/21/22 07/21/22 Unknown Rx monohydrate/macrocrystals 100 mg infection #60 caps capsule (Macrobid) Allergies Allergy/AdvReac Type Severity Reaction Status Date / Time Sulfa (Sulfonamide Allergy ALGY-Rash Verified 07/21/22 13:19 Antibiotics) morphine AdvReac Intermediate ADR-Vomitin Verified 08/04/22 23:30 g simvastatin [From Zocor] AdvReac ADR-Muscle Verified 07/21/22 13:19 Pain PFSH Acute PFSH: Medical History Chronic cystitis GERD (gastroesophageal reflux disease) Hyperlipidemia Hypertension Situational anxiety Takotsubo cardiomyopathy Vitamin D deficiency Surgical History History of cholecystectomy (~1988) History of partial thyroidectomy History of tubal ligation (~1979) Family History Mother , AT AGE 97 COLON CANCER Cancer Father , AT AGE 72 CHF No problems noted. Sister Cancer Social History Smoking and tobacco status: never smoked Alcohol intake: never Adopted: No Caregiver/support person: No Lives independently: No Household members: spouse Marital status: Current occupational status: unemployed and retired History of recent travel: No Current gender identity: Female Vitals/I&O/Wt Last Vital Signs Pulse 69 08/04/22 20:24 Resp 17 08/04/22 22:56 BP 105/73 08/04/22 23:05 Pulse Ox 95 08/04/22 23:05 O2 Del Method 08/04/22 20:24 Weight last 48 hrs Weight 63.503 kg Physical Exam Narrative: General: Alert oriented x3, patient seen laying in bed constantly massaging her chest with family present at bedside. Appears very anxious to me. HEENT: Normocephalic, atraumatic, EOMI, breathing comfortably on room air. Cardio: Regular rate rhythm, normal S1-S2, pain not reproducible to palpation. Respiratory: Good bilateral air entry, no wheezes no rhonchi appreciated GI: Abdomen soft, nontender, nondistended, bowel sounds + Behavior: Appropriate and cooperative Extremities: No lower extremity edema noted. Data 08/04/22 20:30 08/04/22 20:30 A&P Assessment and plan (1) Takotsubo cardiomyopathy: (2) GERD (gastroesophageal reflux disease): Qualifiers: Esophagitis presence: esophagitis presence not specified Qualified Code(s): K21.9 - Gastro-esophageal reflux disease without esophagitis (3) Situational anxiety: (4) Hyperlipidemia: Qualifiers: Hyperlipidemia type: mixed hyperlipidemia Qualified Code(s): E78.2 - Mixed hyperlipidemia (5) Hypertension: (6) Dysphagia: Plan #Chest pain, atypical #History of stress-induced cardiomyopathy, Takotsubo #GERD #Difficulty swallowing since thyroid surgery #Hyperlipidemia #Hypertension ? Patient chest pain does seem to be atypical in nature. It is more of a sharp pain that does tend to get better with massaging her chest.. She did get nitros however that did not completely take the pain away. She will be given a GI cocktail to see if that would help. Heart score 6. Her last cardiac angiogram was done in [address] Kim. 1-LM is normal ?2-LAD has luminal irregularities ?3-LCx has luminal irregularities ?4-RCA has luminal irregularities ?5-Normal left side filling pressure, LVEDP 14 ?6-Anterior wall and apical wall mild hypokinesis EF 45%, Possible diagnosis is Takotsubo syndrome since her cardiac markers were positive -Patient recently saw cardiology and there were no apparent issues at the time. ? We will check cardiac echo to rule out wall motion abnormalities ? Troponins have been negative x2. 6-hour troponin pending. EKG does not show any ischemic changes. ? We will order stress test for the morning. ? I will place patient on Protonix 40 daily. ? Continue aspirin, ? Continue citalopram ? Continue ezetimibe ? Hold Lasix at the time. Patient appears to be euvolemic. ?Patient's daughter Dk would like to be informed in case of any case updates [phone] -For difficulty swallowing, ideally patient should have a barium swallow however she will be having a stress test in a.m. We will order speech swallow eval for now. She will also be following up with Dr. Urbano on August 12 for an EGD. Full code DVT prophylaxis: Heparin SQ twice daily Attestations Medical Necessity Statement*: Observation admission for chest pain work-up. Will do stress test in a.m. Coding Level of Care Code Acute Code for Chg Fwd Diagnoses Takotsubo cardiomyopathy I51.81 GERD (gastroesophageal reflux disease) K21.9 Esophagitis presence: esophagitis presence not specified Situational anxiety F41.8 Hyperlipidemia E78.2 Hyperlipidemia type: mixed hyperlipidemia Hypertension I10 Dysphagia R13.10
[2022-08-04 23:08] LABS: Troponin 5 2HR 9.23 ng/L (0-10)
[2022-08-04 23:19] LABS: Troponin 5 2HR Delta 0.23 ABS# (0-10)
[2022-08-05] VITALS (19 sets, daily range): BP systolic 98–136; BP diastolic 53–94; PULSE 71–95; RESP 14–25; O2SAT 93–98
[2022-08-05] MEDS: nitroglycerin 0.4 mg sublingual Tablet SUBLINGUAL ×2 (00:02→03:21)
[2022-08-05 00:21] LABS: Influenza A by IFA negative (Negative); Influenza B by IFA negative (Negative); SARS Covid-2 Antigen negative (Negative)
--- NOTE | 2022-08-05 01:35 | ECG_ITS ---
[facility] Test Date: 2022-08-05 Pat Name: Shannan Meehan Department: Room: EDIP Gender: Female Educational Resource Coordinator: : 1945 Requested By: Laurie Flower Order Number: [id number] Charissa MD: Macey Castro M.D. Interpretive Statements NAME OF STUDY: LEXISCAN SESTAMIBI STRESS TEST INDICATION: Chest pain PROCEDURE: At the baseline, the blood pressure was 130/75 mm Hg with a heart rate of 74 bpm. The electrocardiogram showed sinus rhythm, normal axis. Normal ST and T's. ??? The Lexiscan was infused over a period of 20 seconds. A total of 0.4 milligrams of Lexiscan was infused. The stress phase was continued for a total of 5 minutes. Heart rate at the end of the stress phase was 97 bpm with a blood pressure of 112/64 mm Hg. The EKG at the peak infusion revealed no significant ST and T wave changes. The study was terminated due to protocol completion. ??? Sestamibi was injected 20 seconds after the Lexiscan infusion. ??? Blood pressure at the end of the recovery phase was 110/62 mm Hg with a heart rate of 92 beats per minute. ??? CONCLUSION: 1. Normal EKG response to LexiScan infusion. 2. No LexiScan induced chest pain or cardiac arrhythmia. 3. Normal blood pressure and heart rate response. 4. Sestamibi/sestamibi perfusion scan pending; see separate report. Electronically Signed On 08-12-2022 6:55:16 CAN REFORMING MACHINE OPERATOR by Macey Castro M.D. [id number]
--- NOTE | 2022-08-05 01:35 | USCV_ITS ---
Shannan Meehan Age: 77 Gender: F : 1945 Exam Date: 08/05/2022 04:11 Ordering Phys: Laurie Flower MD Technologist: TILA Exam Location: [facility] Indication: chest pain. History of cardiac angiogram [address] Kim, essentially normal per patient. BP: 105 / 73 HR: 67 Rhythm: Sinus Technical Quality: Adequate MEASUREMENTS (Male / Female) Normal Values 2D ECHO LV Diastolic Diameter PLAX 3.3 cm 4.2 - 5.9 / 3.9 - 5.3 cm LV Systolic Diameter PLAX 2.0 cm IVS Diastolic Thickness 1.8 cm 0.6 - 1.0 / 0.6 - 0.9 cm IVS Systolic Thickness 1.8 cm LVPW Diastolic Thickness 1.2 cm 0.6 - 1.0 / 0.6 - 0.9 cm LVPW Systolic Thickness 1.3 cm LVOT Diameter 1.6 cm LV Ejection Fraction 2D Teich 72.0 % LV Ejection Fraction MOD 2C 66.2 % LV Ejection Fraction 2C AL 65.8 % LA Diameter 3.5 cm LA Width 3.8 cm LA Height 4.7 cm RA Width 2.4 cm RA Height 3.0 cm Aorta at Sinotubular Diameter 2.8 cm IVC Diameter 2.0 cm M-MODE Aortic Annulus Diameter 3.2 cm LA Ao Ratio MM 1.1 MV E Point Septal Separation 0.3 cm DOPPLER AV Peak Velocity 141.0 cm/s LVOT Peak Velocity 92.0 cm/s AV Area Cont Eq vti 1.3 cm squared AV Area Cont Eq pk 1.3 cm squared MV Area PHT 4.4 cm squared Mitral E to A Ratio 0.8 MV E' Velocity 51.5 cm/s Mitral E to MV E' Ratio 14.1 Mitral E to LV E' Lateral Ratio 13.9 Mitral E to LV E' Septal Ratio 14.3 TR Peak Velocity 267.3 cm/s TR Peak Gradient 28.6 mmHg TV Peak E Velocity 51.0 cm/s Right Atrial Pressure 5.0 mmHg Pulmonary Artery Systolic Pressu 33.6 mmHg PV Peak Velocity 104.0 cm/s RV Acceleration Time 0.1 s RV Ejection Time 0.4 s RV AcT/ET 0.1 FINDINGS Left Ventricle Left ventricle is normal in size. LV systolic function is normal with EF of 60 to 65%. No regional wall motion abnormalities are seen. Grade 1 diastolic dysfunction. Right Ventricle Normal in size and function Right Atrium Normal in size Left Atrium Normal in size Mitral Valve Mild mitral annular calcification is seen. Mild mitral regurgitation. Aortic Valve Structurally normal aortic valve. No significant stenosis or regurgitation Tricuspid Valve Mild tricuspid regurgitation. RVSP is 35 to 40 mmHg. This is consistent with mild pulmonary hypertension. Pulmonic Valve Not well-visualized Pericardium Normal Aorta Normal in size IVC Appears to be normal CONCLUSIONS LV systolic function is normal with EF of 60-65% Grade 1 diastolic dysfunction Mild mitral regurgitation Mild tricuspid regurgitation Mild pulmonary hypertension Compared to prior echocardiogram from 2016, no significant changes are seen. Gilson Hearn MD (Electronically Signed) Final Date: 05 August 2022 09:51 S
--- NOTE | 2022-08-05 01:36 | NMCV_ITS ---
NM vinny perf SPECT r/s* 00007 Shannan Meehan Age: 77 Gender: F : 1945 Exam Date: 08/05/2022 01:36 Ordering Phys: Laurie Flower MD Technologist: BRANDON Andrews Exam Location: [facility] Indications: CHEST PAIN STRESS TEST Please see separate stress test report in [facility] for full findings IMAGE PROTOCOL Rest/Stress 1 Lexiscan Day Radiopharmaceutical Dose (mCi) Administration Site Administered by Rest: Tc-99m 10.6 IV BRANDON Andrews Sestamibi Stress:Tc-99m 32.3 IV BRANDON Beltran Sestamibi Rest: 05-Aug-2022 60 Discovery 630 Stress: 05-Aug-2022 30 Discovery 630 0.4mg Lexiscan. Images obtained in supine and prone position. SPECT RESULTS Technical Quality: Excellent Raw Data Analysis: Normal Image Corrections: No attenuation or motion correction applied Summed Stress Score: 13 Summed Rest Score: 11 Summed Difference Score: 2 PERFUSION FINDINGS Moderate area of moderate to severely decreases uptake was noted in the basal mid and apical inferior, basal and mid inferolateral and apical lateral regions. Subtle areas of reversibility was noted in the apical inferior and mid inferolateral regions. FUNCTIONAL RESULTS (calculated via Gated SPECT) Stress Image LV EF (%): 74 Stress EDV (mL):58 TID: 0.98 Stress ESV (mL):15 FUNCTIONAL FINDINGS: Segmental wall motion analysis revealing no gross wall motion abnormalities IMPRESSIONS 1. Myocardial perfusion imaging revealing moderate area of persistent decreased tracer uptake in the inferior, inferolateral and apical regions with a subtle areas of reversibility, suggesting myocardial scarring in the distribution of the right coronary artery and circumflex artery with very small areas of makayla-infarction ischemia. 2. Normal ejection fraction of 74%. 3. LV wall motion analysis revealing no gross wall motion abnormalities. 4. Normal LV volume No similar previous studies are available for comparison Dr Yue Beugm MD FACC (Electronically Signed) Final Date: 05 August 2022 12:35 S
[2022-08-05] MEDS: heparin 5,000 unit/mL INJ 1 mL 5000 UNIT SUBCUT ×2 (02:45→15:10)
[2022-08-05] MEDS: sodium chloride 0.9% 1,000 ML 75 ML IV (02:45)
--- NOTE | 2022-08-05 02:52 | ECG_ITS ---
[facility] Test Date: 2022-08-05 Pat Name: Shannan Meehan Department: Room: EDIP Gender: Female Service Team Leader: : 1945 Requested By: Dipti Frye Order Number: [id number] Charissa MD: Gilson Hearn M.D. Measurements Intervals [place] Rate: 74 P: 46 DC: 151 QRS: 59 QRSD: 84 T: 51 QT: 409 QTc: 455 Interpretive Statements SINUS RHYTHM WITH OCCASIONAL SUPRAVENTRICULAR PREMATURE COMPLEXES Compared to ECG 08/04/2022 22:33:32 Short DC interval no longer present Electronically Signed On 08-05-2022 18:12:59 INFRASTRUCTURE ANALYST by Gilson Hearn M.D. [id number]
[2022-08-05 03:16] LABS: Troponin 5 6HR 10.67 ng/L (0-10)
[2022-08-05 03:25] LABS: Chol HDL Ratio 3.45 mg/dL (0.0-4.40); Cholesterol 176 mg/dL (0-200); HDL Cholesterol 51 mg/dL (60-100); LDL Cholesterol Calculated 110 mg/dL (50-129); LDL HDL Ratio 2.16 RATIO (0.00-3.22); Thyroid Stimulating Hormone 2.21 uIU/mL (0.27-4.20); Triglycerides 75 mg/dL (0-150)
[2022-08-05 03:30] LABS: Troponin 5 6HR Delta 1.67 ng/L (0-12)
[2022-08-05] MEDS: pantoprazole DR 40 mg Tablet PO ×2 (05:50→09:10)
--- NOTE | 2022-08-05 08:03 | ECG_ITS ---
[facility] Test Date: 2022-08-05 Pat Name: Shannan Meehan Department: Room: EDIP Gender: Female Logistics Engineer: : 1945 Requested By: Laurie Flower Order Number: [id number] Charissa MD: Gilson Hearn M.D. Measurements Intervals [place] Rate: 72 P: 50 WI: 147 QRS: 67 QRSD: 85 T: 36 QT: 389 QTc: 427 Interpretive Statements SINUS RHYTHM Compared to ECG 08/05/2022 02:52:06 No significant changes Electronically Signed On 08-05-2022 18:12:57 MOTION PICTURE EQUIPMENT SUPERVISOR by Gilson Hearn M.D. [id number]
--- NOTE | 2022-08-05 08:21 | FL_ITS ---
WS: [id number] MODIFIED BARIUM SWALLOW HISTORY: Oropharyngeal dysphagia FLUOROSCOPY TIME: 1min [id number] # of spot films: 1 Modified barium swallow was performed by the speech pathologist. Fluoroscopy was provided with the pa tient in a lateral projection. Multiple food consistencies were provided. Patient swallowed all food consistencies with mild cricopharyngeal spasm. No aspiration or laryngeal penetration. Barium tablet was swallowed without difficulty. FL/FL barium swallow modifd [id number] IMPRESSION: No significant swallowing deficiency. Please see speech therapist report also for recommendations.
--- NOTE | 2022-08-05 08:32 | PC.NURSE ---
WHILE AT BEDSIDE PT IS RESTING QUIETLY IN BED ON LEFT SIDE. PT IS IN NAD. PT HAS GOOD CHEST RISE AND FALL.
[2022-08-05] MEDS: aspirin 81 mg EC Tablet PO (09:09)
[2022-08-05] MEDS: ezetimibe 10 mg Tablet PO (09:10)
--- NOTE | 2022-08-05 10:28 | PC.NURSE ---
REPORTED TO ME THAT PT HAS BEEN TRANSPORTED TO NUCLEAR MEDICINE BY CHARGE NURSE GINGER.
[2022-08-05] MEDS: regadenoson 0.4 Mg/5 ml Syringe IVP (10:45)
--- NOTE | 2022-08-05 11:57 | P.DS_ITS ---
Discharge Providers Date of Admission: 08/05/22 00:01 Date of Discharge: August 05, 2022 Attending Provider at Admission: Laurie Flower MD Attending Provider at Discharge: Monica Elias MD Primary Care Provider: Carine Colbert MD Diagnoses at Discharge Discharge Diagnosis (1) Takotsubo cardiomyopathy: Status: Acute (2) GERD (gastroesophageal reflux disease): Status: Acute Qualifiers: Esophagitis presence: esophagitis presence not specified Qualified Code(s): K21.9 - Gastro-esophageal reflux disease without esophagitis (3) Situational anxiety: Status: Acute (4) Hyperlipidemia: Status: Acute Qualifiers: Hyperlipidemia type: mixed hyperlipidemia Qualified Code(s): E78.2 - Mixed hyperlipidemia (5) Hypertension: Status: Acute (6) Dysphagia: Status: Acute Reason for Visit Reason for Visit: CP Hospital Course Hospital Course 77-year-old female with history of Takotsubo cardiomyopathy, GERD, dysphagia since thyroid surgery, has an appointment with Dr. Urbano for an EGD, was admitted for chest pain evaluation, her chest pain was deemed atypical however stress test was requested, her echo did not show any wall motion abnormality, modified barium swallow requested as well, troponins without significant delta, EKG without signs of ischemia or infarction. Stress test showed makayla-infarct ischemia, stress test report discussed with Dr. 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 echo complete* [id number] Routine Ultrasound 08/05/22 01:35 Completed US gall bladder [id number] Stat Ultrasound 08/04/22 21:41 Completed Pending at discharge Category Date Time Status Cardiac Stress Test MIBI [Sestamibi Stress Test Request Exams 08/05/22 05:28 O rdered ] Routine Modified barium swallow [FL barium swallow modifd [id number] Exams 08/05/22 08:21 Ordered ] Routine Basic Metabolic Panel AM LABS Lab 08/06/22 04:00 Ordered Complete Blood Count w/Auto AM LABS Lab 08/06/22 04:00 Ordered Magnesium AM LABS Lab 08/06/22 04:00 Ordered NM vinny perf SPECT r/s* [id number] Routine Nuc Med 08/05/22 01:36 Ordered Radiology Impressions Chest X-Ray 08/04/22 20:12 IMPRESSION: No acute findings. Gallbladder Ultrasound 08/04/22 21:41 IMPRESSION: 1. Absent gallbladder with no definite acute finding. 2. 1.5 cm CBD, which may be due to postop status and/or age. Advise correlation. Laboratory Results WBC 10.0 10^3/uL (4.0-10.0) 08/04/22 20:30 RBC 4.07 10^6/uL (4.1-5.3) L 08/04/22 20:30 Hgb 11.5 g/dL (11.5-15.3) 08/04/22 20:30 Hct 37.0 % (37.0-47.0) 08/04/22 20:30 MCV 90.9 fl (81-99) 08/04/22 20:30 MCH 28.3 pg (28.0-34.0) 08/04/22 20:30 MCHC 31.1 g/dL (30.0-36.0) 08/04/22 20:30 RDW 13.7 % (12.1-15.1) 08/04/22 20:30 Plt Count 315 10^3/cmm (130-400) 08/04/22 20:30 MPV 10.1 fL (7.4-10.4) 08/04/22 20:30 Neut % (Auto) 59.3 % 08/04/22 20:30 Lymph % (Auto) 26.4 % 08/04/22 20:30 [place] % (Auto) 10.5 % 08/04/22 20:30 Eos % (Auto) 2.8 % 08/04/22 20:30 Baso % (Auto) 0.3 % 08/04/22 20:30 Neut # (Auto) 5.91 10^3/uL (1.8-7.7) 08/04/22 20:30 Lymph # (Auto) 2.6 10^3/uL (0.8-4.8) 08/04/22 20:30 [place] # (Auto) 1.1 10^3/uL (0.2-0.9) H 08/04/22 20:30 Eos # (Auto) 0.3 10^3/uL (0.0-0.8) 08/04/22 20:30 Baso # (Auto) 0.0 10^3/uL (0.0-0.1) 08/04/22 20:30 Nucleated RBC % (auto) 0 % 08/04/22 20: Nucleated RBCs # 0.0 /100WBC 08/04/22 20:30 PT 12.70 SECONDS (12.1-14.9) 08/04/22 20:30 INR 0.92 (0.8-1.2) 08/04/22 20:30 Sodium 136 mmol/L (136-145) 08/04/22 20:30 Potassium 3.5 mmol/L (3.5-5.1) 08/04/22 20:30 Chloride 98 mmol/L (98-107) 08/04/22 20:30 Carbon Dioxide 26 mmol/L (22-29) 08/04/22 20:30 Anion Gap 15.5 (5-19) 08/04/22 20:30 BUN 21 mg/dL (8-23) 08/04/22 20:30 Creatinine 0.9 mg/dL (0.5-0.9) 08/04/22 20:30 GFR Calculation Not Reportable 08/04/22 20:30 Glucose 100 mg/dL (65-115) 08/04/22 20:30 Calculated Osmolality 285 mOsm/kg (285-295) 08/04/22 20:30 Calcium 8.5 mg/dL (8.5-10.5) 08/04/22 20:30 Total Bilirubin 0.2 mg/dL (0.15-1.2) 08/04/22 20:30 AST 83 U/L (0-32) H 08/04/22 20:30 ALT 39 U/L (0-33) H 08/04/22 20:30 Alkaline Phosphatase 94 U/L (35-105) 08/04/22 20:30 Troponin T Baseline 9 ng/L (0-10) 08/04/22 20:30 Troponin T 120 Minute 9.23 ng/L (0-10) 08/04/22 22:48 Delta Troponin T 0.23 ABS# (0-10) 08/04/22 22:48 Troponin T Hi Sens 6Hr 10.67 ng/L (0-10) H 08/05/22 02:55 Troponin T Hi Sens 6Hr Delta 1.67 ng/L (0-12) 08/05/22 02:55 Total Protein 6.1 g/dL (6.6-8.7) L 08/04/22 20:30 Albumin 3.8 g/dL (3.5-5.2) 08/04/22 20:30 Globulin 2.3 g/dL (1.3-4.6) 08/04/22 20:30 Triglycerides 75 mg/dL (0-150) 08/05/22 02:55 Cholesterol 176 mg/dL (0-200) 08/05/22 02:55 LDL Cholesterol, Calc 110 mg/dL (50-129) 08/05/22 02:55 HDL Cholesterol 51 mg/dL (60-100) L 08/05/22 02:55 LDL/HDL Ratio 2.16 RATIO (0.00-3.22) 08/05/22 02:55 Cholesterol/HDL Ratio 3.45 mg/dL (0.0-4.40) 08/05/22 02:55 Lipase 34 U/L (13-60) 08/04/22 20:30 TSH 2.21 uIU/mL (0.27-4.20) 08/05/22 02:55 Influenza Type A Ag negative (Negative) 08/05/22 00:00 Influenza Type B Ag negative (Negative) 08/05/22 00:00 SARS-CoV-2 Ag (Rapid) negative (Negative) 08/05/22 00:00 Vitals Last Vital Signs Pulse 95 08/05/22 11:04 Resp 18 08/05/22 04:00 BP 105/62 08/05/22 11:04 Pulse Ox 93 08/05/22 04:00 O2 Del Method 08/05/22 04:00 Discharge Plan Discharge Patient Disposition: Home Condition: Stable Prescriptions: New isosorbide mononitrate 10 mg tablet 5 mg PO BID Qty: 60 0RF Rx Instructions: give doses 7 hrs apart Continued meclizine 12.5 mg tablet 12.5 mg PO TID PRN (Reason: Dizziness) nitrofurantoin monohyd/m-cryst [Macrobid] 100 mg capsule 100 mg PO BID PRN (Reason: urinary infection) Qty: 60 6RF cholecalciferol (vitamin D3) [Vitamin D3] 125 mcg (5,000 unit) tablet 5,000 unit PO QAM Vision Formula (with lutein) 1,000 unit-200 mg-60 unit-2 mg tablet 1 tab PO BEDTIME krill oil 500 mg capsule 500 mg PO BEDTIME acetaminophen [Tylenol Arthritis Pain] 650 mg tablet extended release 1,300 mg PO Q12H PRN (Reason: Pain) citalopram 10 mg tablet 10 mg PO QAM alendronate 70 mg tablet 70 mg PO Q7D Rx Instructions: on thu benzonatate 100 mg capsule 100 mg PO TID PRN (Reason: Cough) Benadryl 25 mg Capsule 25 mg PO BEDTIME PRN (Reason: Sleep) Nitrostat 0.4 mg Tablet, Sublingual 0.4 mg SUBLINGUAL Q5M PRN (Reason: Chest Pain) Rx Instructions: do not exceed 3 doses per episode omeprazole 20 mg capsule,delayed release(DR/EC) 20 mg PO QAM furosemide 20 mg tablet 20 mg PO QAM ezetimibe 10 mg tablet 10 mg PO QAM Discontinued aspirin 81 mg tablet,delayed release (DR/EC) 81 mg PO BEDTIME meloxicam 15 mg tablet 15 mg PO DAILY PRN (Reason: Pain) Discharge Orders: Discharge Order (Routine); Ordered 08/05/22 Ordered By: Monica Elias Other Ambulatory Orders: Physical Therapy Eval and Treat Outpatient (Order) Timeframe: 1 Week Facility: [facility] - Location: Physical Therapy Ordered By: Monica Elias Referrals: Carine Colbert MD [Primary Care Provider] - 08/13/22 3:00 pm (You have a follow up appointment with Dr. Colbert on August 13, at 3pm. If you have any quetons, please call [phone].) Patient Instructions: Isosorbide Mononitrate (By mouth) (Imdur, Imdur ER, Ismo), Dysphagia, Chest Pain (DC), GERD (Gastroesophageal Reflux Disease) (DC), Hyperlipidemia (DC), Chest Pain Stoplight, Opioid Safety Discharge Attestations Time Spent in Discharge Care*: less than 30 min Quality Metrics Clinical Quality Measures [ No reported AMI, CVA or VTE this stay] Coding Level of Care Code Acute Code for Chg Fwd Diagnoses Takotsubo cardiomyopathy I51.81 GERD (gastroesophageal reflux disease) K21.9 Esophagitis presence: esophagitis presence not specified Situational anxiety F41.8 Hyperlipidemia E78.2 Hyperlipidemia type: mixed hyperlipidemia Hypertension I10 Dysphagia R13.10
--- NOTE | 2022-08-05 13:35 | PC.NURSE ---
WHILE AT BEDSIDE PT IS IN NAD. PT DENIES ANY NEEDS. PT IS BEING TAKEN TO RADIOLOGY FOR BARIUM SWALLOW STUDY.
--- NOTE | 2022-08-05 13:47 | PC.NURSE ---
ATTEMPTED TO GIVE HEPARIN SUBQ PT IS NOT IN THE ROOM.
--- NOTE | 2022-08-05 15:02 | PC.NURSE ---
report called to [facility] in [place].
--- NOTE | 2022-08-05 18:08 | PC.NURSE ---
Received patient from the ER, when Nurse went to transfer orders, discharge orders were in place. Hospitalist was contacted to confirm discharge plan. 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 Physician spoke with family regarding discharge plan and results of tests. Education was provided to patient and IV was removed. Patient and family understood discharge instructions. Patient left via private vehicle accompanied by family. VS stable upon departure.
== END 2022-08-05 18:12 | disposition home or self-care (01) ==
LOC: ER 23:23 → ER IP 08-05 00:10 → CSU 08-05 14:35
PROVIDERS: Emergency Medicine; Admitting Provider Internal Medicine; Emergency Provider Emergency Medicine; PCP Family Medicine; Visit Provider Internal Medicine
DX: I51.81 Takotsubo syndrome (principal); K21.9 Gastro-esophageal reflux disease without esophagitis; F41.8 Other specified anxiety disorders; E78.2 Mixed hyperlipidemia; I10 Essential (primary) hypertension; R13.10 Dysphagia, unspecified; Z79.82 Long term (current) use of aspirin; E78.5 Hyperlipidemia, unspecified
CPT/HCPCS: 71045; 74230; 76705; 78452; 80053; 80061; 83690; 84443; 84484; 85025; 85610; 87426; 87804; 92611; 93005; 93017; 93306; 96372; 96374; 96375; 96376; 97110; 97161; 99285; A9500; G0378; J1644; J2270; J2405; J2785; J3010; J7030

== ENCOUNTER → 2022-08-12 14:27 | Outpatient (BNVA) | payer MEDICARE, OTHER, SELFPAY | PROVIDERS: PCP Family Medicine; Visit Provider Surgery | DX: R13.10 Dysphagia, unspecified (principal); K21.9 Gastro-esophageal reflux disease without esophagitis; Z90.89 Acquired absence of other organs | CPT/HCPCS: 99203 ==

== ENCOUNTER 2022-08-14 06:00 | Outpatient (RCR) | payer MEDICARE, OTHER, SELFPAY | END 2022-08-26 23:59 | disposition home or self-care (01) | LOC: SPT 06:00 | PROVIDERS: PCP Family Medicine; Visit Provider Internal Medicine | DX: R42 Dizziness and giddiness (principal); H81.10 Benign paroxysmal vertigo, unspecified ear | CPT/HCPCS: 95992; 97162 ==

== ENCOUNTER → 2022-08-21 08:58 | Outpatient (BNVA) | payer MEDICARE, OTHER, SELFPAY | PROVIDERS: PCP Family Medicine; Visit Provider Nurse Practitioner Family | DX: R07.89 Other chest pain (principal) | CPT/HCPCS: 99213 ==

== ENCOUNTER 2022-09-03 08:46 | Day surgery (SDC) | payer MEDICARE, OTHER, SELFPAY ==
[2022-09-02 08:14] VITALS: BMI 24.0
[2022-09-03 09:05] VITALS: BP 134/70; PULSE 74; RESP 18; TEMP 36.1; O2SAT 99
[2022-09-03] MEDS: sodium chloride 0.9% 1,000 ML 30 ML IV (09:08)
--- NOTE | 2022-09-03 09:42 | ANES.PREANE2 ---
Pre-Anesthetic Assessment Height/Weight: Height 1.63 m Weight 63.503 kg Temp Pulse Resp BP Pulse Ox O2 Del Method 97 F L 74 18 134/70 99 09/03/22 09:05 09/03/22 09:05 09/03/22 09:05 09/03/22 09:05 09/03/22 09:05 09/03/22 09:05 Preop Diagnosis: Right thyroid mass Operation Date: 09/03/22 10:15 [place] p [id number] EgD with ball r13.10(Not Applicable) - Torrey Urbano, DO Was Beta Radha taken within 24 hours: N/A Was Clonidine taken within 24 hours: N/A Last intake: Intake Last Liquid Date 09/02/22 Last Liquid Time 21:30 Last Solid Date 09/02/22 Last Solid Time 16:00 Social No alcohol and No tobacco Exam alert, oriented x 3, clear to auscultation bilaterally and regular rate & rhythm History/ROS No significant history except as noted CV/HEM Stable Angina and Congestive Heart Failure recent workup in ER for chest pain - negative stress, echo. Takosumi cardiomyopathy None reported Hepatic None reported GI dysphagia Metabolic Thyroid Disease hyperthyroid, nodules removed, LFTs elevated Musc/skel None reported Neuropsych Anxiety Anesthetic Plan ASA status: 3 Anesthesia: Anesthesia Evaluation and MAC Risk of > 500 ml blood loss (7ml/kg in children): Yes, adequate IV access and fluids planned Medications/Allergies Home Medications Medication Instructions Recorded Confirmed Last Taken Type cholecalciferol (vitamin D3) 125 5,000 unit PO QAM 08/16/19 09/02/22 09/02/22 History mcg (5,000 unit) tablet (Vitamin D3) vit A 300 mcg-C 200 mg-E 27 1 tab PO BEDTIME 08/16/19 09/02/22 09/02/22 History mg-lutein 2 mg and minerals tablet (Vision Formula (with lutein)) krill oil 500 mg capsule 500 mg PO BEDTIME 02/28/20 09/02/22 09/02/22 History acetaminophen 650 mg 1,300 mg PO Q12H PRN Pain 07/15/22 09/02/22 09/01/22 History tablet,extended release (Tylenol Arthritis Pain) meclizine 12.5 mg tablet 12.5 mg PO TID PRN Dizziness 07/21/22 09/02/22 08/20/22 History nitrofurantoin 100 mg PO BID PRN urinary 07/21/22 09/02/22 Unknown Rx monohydrate/macrocrystals 100 mg infection #60 caps capsule (Macrobid) alendronate 70 mg tablet 70 mg PO Q7D 08/05/22 09/02/22 08/27/22 History benzonatate 100 mg capsule 100 mg PO TID PRN Cough 08/05/22 09/02/22 Unknown History citalopram 10 mg tablet 10 mg PO QAM 08/05/22 09/02/22 09/02/22 History diphenhydramine HCl 25 mg capsule 25 mg PO BEDTIME PRN Sleep 08/05/22 09/02/22 09/02/22 History (Benadryl) ezetimibe 10 mg tablet 10 mg PO QAM 08/05/22 09/02/22 09/02/22 History furosemide 20 mg tablet 20 mg PO QAM 08/05/22 09/02/22 09/02/22 History pantoprazole 40 mg tablet,delayed 40 mg PO BID 6 weeks #84 tabs 08/12/22 09/02/22 09/02/22 Rx release (Protonix) nitroglycerin 0.4 mg sublingual 0.4 mg sublingual Q5M PRN Chest 08/13/22 09/02/22 08/20/22 Rx tablet (Nitrostat) Pain #20 tabs Allergies Allergy/AdvReac Type Severity Reaction Status Date / Time Sulfa (Sulfonamide Allergy ALGY-Rash Verified 08/21/22 09:20 Antibiotics) morphine AdvReac Intermediate ADR-Vomitin Verified 08/21/22 09:20 g simvastatin [From Zocor] AdvReac ADR-Muscle Verified 08/21/22 09:20 Pain Current Medications Generic Name Dose Route Start Last Admin Trade Name Freq PRN Reason Stop Dose Admin Sodium Chloride 1,000 mls @ 30 mls/hr 09/03/22 09:00 09/03/22 09:08 Sodium Chloride 0.9% IV 09/04/22 08:59 30 mls/hr .Q24H AMOR Administration PFSH Anesthesia Medical History Chest pain Chronic cystitis Dysphagia GERD (gastroesophageal reflux disease) History of COVID-19 Hyperlipidemia Hypertension Situational anxiety Takotsubo cardiomyopathy Unstable angina pectoris Vertigo Vitamin D deficiency Surgical History History of cholecystectomy (~1988) History of partial thyroidectomy History of tubal ligation (~1979) Family History Mother , AT AGE 97 COLON CANCER Cancer Father , AT AGE 72 CHF No problems noted. Sister Cancer Social History Smoking and tobacco status: never smoked Alcohol intake: never Adopted: No Caregiver/support person: No Lives independently: No Household members: spouse Marital status: Current occupational status: unemployed and retired History of recent travel: No Current gender identity: Female Data Anesthesia Cardiac Studies: Echocardiogram 08/05/22 Sestamibi Stress Test (Cardiology) 08/05/22
--- NOTE | 2022-09-03 10:55 | W.PM.OPSUD ---
Surgery/Procedure H&P Update DATE OF PROCEDURE: September 03, 2022 DATE H&P PERFORMED: 08/12/22 H&P UPDATE INFORMATION: I have reviewed H&P completed within last 30 days, I have examined patient prior to procedure and No changes to prior documentation PREOP DIAGNOSIS: Right thyroid mass PLANNED PROCEDURE: Operation Date: 09/03/22 10:15 Proposed Procedures p [id number] EgD with chandra r13.10(Not Applicable) - Torrey Urbano DO
--- NOTE | 2022-09-03 11:06 | SUR.OPER ---
balloon dilatation at 20 for 1 min
[2022-09-03 11:13] VITALS: BP 98/57; PULSE 69; RESP 14; TEMP 36.1; O2SAT 96
[2022-09-03 11:36] VITALS: BP 104/64; PULSE 69; RESP 16; O2SAT 96
--- NOTE | 2022-09-03 14:30 | ANE.PACU2 ---
Inpatient post-anesthesia follow up: Airway intact: Yes Vital signs: Temperature 97 F Pulse Rate 69 Respiratory Rate 16 Blood Pressure 104/64 Pulse Oximetry 96 Oxygen Delivery Me thod Room Air Oxygen Flow Rate Fraction of Inspir ed Oxygen Hydration adequate: Yes Nausea and vomiting: No Pain level: 1 Mental status: Baseline
== END 2022-09-03 11:55 | disposition home or self-care (01) ==
PROVIDERS: PCP Family Medicine; Visit Provider Surgery
DX: K22.2 Esophageal obstruction (principal); K21.9 Gastro-esophageal reflux disease without esophagitis; I11.0 Hypertensive heart disease with heart failure; I50.9 Heart failure, unspecified; E78.5 Hyperlipidemia, unspecified; Z86.16 Personal history of COVID-19; E89.0 Postprocedural hypothyroidism; Z88.5 Allergy status to narcotic agent; Z88.2 Allergy status to sulfonamides
CPT/HCPCS: 43239; 43249; 88305; J7030

== ENCOUNTER → 2022-09-09 09:38 | Outpatient (BNVA) | payer MEDICARE, OTHER, SELFPAY | PROVIDERS: PCP Family Medicine; Visit Provider Nurse Practitioner Family | DX: R07.9 Chest pain, unspecified (principal) | CPT/HCPCS: 99213 ==

== ENCOUNTER → 2022-09-23 16:02 | Outpatient (BNVA) | payer MEDICARE, OTHER, SELFPAY | PROVIDERS: PCP Family Medicine; Visit Provider Surgery | DX: Q40.2 Other specified congenital malformations of stomach (principal); K22.2 Esophageal obstruction | CPT/HCPCS: 99024; 99212 ==

== ENCOUNTER → 2022-09-29 12:20 | Outpatient (BNVA) | payer MEDICARE, OTHER, SELFPAY | PROVIDERS: PCP Family Medicine; Visit Provider Nurse Practitioner Family | DX: R79.89 Other specified abnormal findings of blood chemistry (principal) | CPT/HCPCS: 80053 ==

== ENCOUNTER 2022-10-09 09:12 | Outpatient (CLI) | payer MEDICARE, OTHER, SELFPAY ==
--- NOTE | 2022-10-09 09:30 | MM_ITS ---
WS: [id number] BILATERAL SCREENING DIGITAL TOMOSYNTHESIS MAMMOGRAM WITH CAD HISTORY: Z12.39 - Encounter for other screening for malignant neoplasm... COMPARISON: 03/22/2018, 10/07/2021 and 04/18/2019 Bilateral CC and MLO views with tomosynthesis and synthetic mammography submitted. Computer aided det ection analyzed. Breast composition: There are scattered areas of fibroglandular density. No suspicious masses, microc alcifications or architectural distortion. Area of increased density and calcification in the LEFT mendez bareolar region is similar to prior studies. Benign calcifications in each breast. MM/[place] [id number] IMPRESSION: BI-RADS: 2-Benign FOLLOW UP: 1 Year Follow-up
== END 2022-10-09 09:13 | disposition home or self-care (01) ==
LOC: RAD 09:13
PROVIDERS: PCP Family Medicine; Visit Provider Nurse Practitioner Family
DX: Z12.31 Encounter for screening mammogram for malignant neoplasm of breast (principal)
CPT/HCPCS: 77063; 77067

== ENCOUNTER → 2022-11-04 15:07 | Outpatient (BNVA) | payer MEDICARE, OTHER, SELFPAY | PROVIDERS: PCP Family Medicine; Visit Provider Internal Medicine | DX: M81.0 Age-related osteoporosis without current pathological fracture (principal); E04.2 Nontoxic multinodular goiter; E05.90 Thyrotoxicosis, unspecified without thyrotoxic crisis or storm; Z90.09 Acquired absence of other part of head and neck; R60.9 Edema, unspecified | CPT/HCPCS: 99214 ==

== ENCOUNTER → 2022-11-12 08:53 | Outpatient (BNVA) | payer MEDICARE, OTHER, SELFPAY | PROVIDERS: PCP Family Medicine; Visit Provider Internal Medicine | DX: E04.1 Nontoxic single thyroid nodule (principal); R60.9 Edema, unspecified | CPT/HCPCS: 82570; 84156; 84439; 84443 ==

== ENCOUNTER → 2022-12-04 10:49 | Outpatient (BNVA) | payer MEDICARE, OTHER, SELFPAY | PROVIDERS: PCP Family Medicine; Visit Provider Nurse Practitioner Family | DX: R05.9 Cough, unspecified (principal); J02.9 Acute pharyngitis, unspecified; J32.9 Chronic sinusitis, unspecified | CPT/HCPCS: 87071; 87426; 87880 ==

== ENCOUNTER → 2022-12-09 13:13 | Outpatient (BNVA) | payer MEDICARE, OTHER, SELFPAY | PROVIDERS: PCP Family Medicine; Visit Provider Nurse Practitioner Family | DX: E04.2 Nontoxic multinodular goiter (principal); R59.9 Enlarged lymph nodes, unspecified | CPT/HCPCS: 80053; 84443; 85025 ==

== ENCOUNTER → 2023-02-11 08:34 | Outpatient (BNVA) | payer MEDICARE, OTHER, SELFPAY | PROVIDERS: PCP Family Medicine; Visit Provider Internal Medicine | DX: M81.0 Age-related osteoporosis without current pathological fracture (principal); E04.2 Nontoxic multinodular goiter; E05.90 Thyrotoxicosis, unspecified without thyrotoxic crisis or storm; Z90.09 Acquired absence of other part of head and neck; E55.9 Vitamin D deficiency, unspecified | CPT/HCPCS: 99214 ==

== ENCOUNTER → 2023-03-04 09:26 | Outpatient (BNVA) | payer MEDICARE, OTHER, SELFPAY | PROVIDERS: PCP Family Medicine; Visit Provider Family Medicine | DX: R05.9 Cough, unspecified (principal) | CPT/HCPCS: 87400; 87426 ==

== ENCOUNTER → 2023-04-14 10:29 | Outpatient (BNVA) | payer MEDICARE, OTHER, SELFPAY | PROVIDERS: PCP Family Medicine; Visit Provider Nurse Practitioner Family | DX: J20.9 Acute bronchitis, unspecified (principal); R05.9 Cough, unspecified | CPT/HCPCS: 80053 ==

== ENCOUNTER → 2023-06-03 15:22 | Outpatient (BNVA) | payer MEDICARE, OTHER, SELFPAY | PROVIDERS: PCP Family Medicine; Visit Provider Family Medicine | DX: R05.9 Cough, unspecified (principal); J20.9 Acute bronchitis, unspecified | CPT/HCPCS: 87400; 87426 ==

== ENCOUNTER 2023-06-16 06:00 | Outpatient (RCR) | payer MEDICARE, OTHER, SELFPAY | END 2023-06-28 23:59 | disposition home or self-care (01) | LOC: SPT 06:00 | PROVIDERS: Visit Provider Family Medicine | DX: H81.10 Benign paroxysmal vertigo, unspecified ear (principal) | CPT/HCPCS: 95992; 97161 ==

== ENCOUNTER 2023-07-21 10:52 | Outpatient (CLI) | payer MEDICARE, OTHER, SELFPAY ==
--- NOTE | 2023-07-21 10:57 | XR_ITS ---
WS: [id number] XR lumbar spine 6V w f/e [id number] REASON FOR EXAM: M25.551 - Pain in right hip FINDINGS: Severe rotatory scoliosis convex left. Moderate straightening of the lumbar lordosis. No focal vertebral body abnormality. Mild narrowing of the intervertebral disc space at L1-L2, L2-L3, L3-L4, and L5-S1. In the neutral position, 4 to 5 mm of anterolisthesis of L2 in relation to L1 and L3 in relation to L 2. 4 to 5 mm of anterolisthesis of L4 in relation to L3. The lumbar spinal alignment does not change significantly with flexion or extension. Moderate degenerative changes in the facet joints L4-S1. IMPRESSION: Moderately severe degenerative spondylosis of the lumbar spine as above.
== END 2023-07-21 10:53 | disposition home or self-care (01) ==
LOC: RAD 10:53
PROVIDERS: PCP Family Medicine; Visit Provider Family Medicine
DX: M25.551 Pain in right hip (principal); M47.817 Spondylosis without myelopathy or radiculopathy, lumbosacral region
CPT/HCPCS: 72114

== ENCOUNTER → 2023-08-24 10:09 | Outpatient (BNVA) | payer MEDICARE, OTHER, SELFPAY | PROVIDERS: PCP Family Medicine; Visit Provider Anesthesiology Pain Medicine | DX: M54.16 Radiculopathy, lumbar region (principal); M16.11 Unilateral primary osteoarthritis, right hip; G89.29 Other chronic pain | CPT/HCPCS: 99204 ==

== ENCOUNTER → 2023-08-25 14:53 | Outpatient (BNVA) | payer MEDICARE, OTHER, SELFPAY | PROVIDERS: PCP Family Medicine; Visit Provider Anesthesiology Pain Medicine | DX: M16.11 Unilateral primary osteoarthritis, right hip (principal) | CPT/HCPCS: 20610; 77002; G0463; J1030; J3490 ==

== ENCOUNTER → 2023-09-21 10:01 | Outpatient (BNVA) | payer MEDICARE, OTHER, SELFPAY | PROVIDERS: PCP Family Medicine; Visit Provider Internal Medicine Cardiovascular Disease | DX: I51.81 Takotsubo syndrome (principal); E78.2 Mixed hyperlipidemia; I10 Essential (primary) hypertension; R07.89 Other chest pain | CPT/HCPCS: 99214 ==

== ENCOUNTER → 2023-09-22 09:45 | Outpatient (BNVA) | payer MEDICARE, OTHER, SELFPAY | PROVIDERS: PCP Family Medicine; Referring Provider Anesthesiology Pain Medicine; Visit Provider Physician Assistant | DX: M16.11 Unilateral primary osteoarthritis, right hip (principal); M25.551 Pain in right hip; Z01.818 Encounter for other preprocedural examination | CPT/HCPCS: 17000; 36415; 73502; 80053; 81001; 85025; 99213; 99214 ==

== ENCOUNTER 2023-09-23 10:50 | Outpatient (CLI) | payer MEDICARE, OTHER, SELFPAY ==
--- NOTE | 2023-09-23 11:00 | MR_ITS ---
WS: [id number] MRI LUMBAR SPINE NONCONTRAST HISTORY: M54.16 - Radiculopathy, lumbar region COMPARISON: 03/07/2009 TECHNIQUE: Sagittal and axial multisequence imaging is submitted. Mild increase in the levoscoliosis of the lumbar spine since 2008. Mild increase in the lumbar lordosis. L2 and L3 retrolisthesis by 2 to 3 mm. No acute fractures or ma rrow edema. Extensive disc space narrowing and desiccation has progressed since 2008. Conus terminates normally at L1-2 disc level. L1-L2: Annular disc bulging and osteophytic ridging and facet arthritis. Greatest facet joint arthrit is on the RIGHT. There is mild RIGHT subarticular recess encroachment with moderate bilateral foramin al stenosis. L2-L3: Diffuse marked osteophytic ridging and annular disc bulging and facet arthritis, greatest on t he RIGHT. Facet arthropathy is encroaching into the RIGHT lateral thecal sac abutting the nerve roots . No central stenosis but there is moderate bilateral subarticular recess and foraminal stenosis. L3-L4: Mild annular disc bulging with ligamentum flavum and facet arthritis. Encroachment upon the ce ntral canal. Subarticular recesses and foramina are stenotic. Mild central with moderate to severe bi lateral subarticular recess and foraminal stenosis. L4-L5: Diffuse annular disc bulging with osteophytic ridging and severe facet joint arthritis encroac federico upon the thecal sac. Trefoil configuration of the thecal sac. Moderate to severe central with bi lateral subarticular recess stenosis and mild foraminal stenosis. L5-S1: Mild annular disc bulging with severe LEFT facet joint arthritis. There is significant encroac hment upon the LEFT S1 nerve root. Moderate RIGHT and severe LEFT foraminal stenosis. No central sten osis. Paravertebral soft tissues are negative. There is significant muscle volume loss. IMPRESSION: 1. Significant progression of levoscoliosis and degenerative spondylitic changes throughout the lumb ar spine since 2008. 2. L1-2: Moderate bilateral foraminal stenosis and mild RIGHT subarticular recess encroachment. 3. L2-3: Moderate bilateral foraminal and subarticular recess encroachment, greatest on the RIGHT. 4. L3-4: Mild central with moderate to severe bilateral subarticular recess and foraminal stenosis. 5. L4-5: Moderate to severe central with bilateral subarticular recess and mild foraminal stenosis. 6. L5-S1: Significant encroachment upon the LEFT S1 nerve root. Moderate RIGHT and severe LEFT az inal stenosis.
== END 2023-09-23 10:51 | disposition home or self-care (01) ==
LOC: RAD 10:52
PROVIDERS: PCP Family Medicine; Visit Provider Anesthesiology Pain Medicine
DX: M54.16 Radiculopathy, lumbar region (principal); M47.896 Other spondylosis, lumbar region; M48.061 Spinal stenosis, lumbar region without neurogenic claudication; M48.07 Spinal stenosis, lumbosacral region
CPT/HCPCS: 72148

== ENCOUNTER 2023-11-16 08:34 | Outpatient (CLI) | payer MEDICARE, OTHER, SELFPAY ==
--- NOTE | 2023-11-16 08:30 | CT_ITS ---
WS: [id number] CT RIGHT HIP NONCONTRAST TECHNIQUE: Noncontrast CT of the RIGHT hip to include the RIGHT knee. CLINICAL INFORMATION: M16.11 - Unilateral primary osteoarthritis, right hip COMPARISON: Radiograph 09/22/2023 DLP: 874.[address] scans at [facility] use at least one of these dose optimization techniques: automated e xposure control; mA and/or kV adjustment per patient size (includes targeted exams where dose is matc hed to clinical indication); or iterative reconstruction. FINDINGS: Advanced degenerative arthritis RIGHT hip with hypertrophic changes and sclerosis. Hypertrophic spurr ing along the femoral neck. Moderate degenerative arthritis LEFT hip. Moderate degenerative arthritis sacroiliac joints. Osteopenia. Sigmoid diverticulosis. CT/CT hip RT [facility] [id number] IMPRESSION: Images obtained for preoperative purposes.
== END 2023-11-16 08:35 | disposition home or self-care (01) ==
LOC: RAD 08:34
PROVIDERS: PCP Family Medicine; Visit Provider Student in an Organized Health Care Education/Training Program
DX: M16.11 Unilateral primary osteoarthritis, right hip (principal); Z01.818 Encounter for other preprocedural examination; Z79.899 Other long term (current) drug therapy
CPT/HCPCS: 73700; 80053; 81003; 85025; 93005

== ENCOUNTER → 2023-11-19 10:37 | Outpatient (BNVA) | payer MEDICARE, OTHER, SELFPAY | PROVIDERS: PCP Family Medicine; Visit Provider Family Medicine | DX: N39.0 Urinary tract infection, site not specified (principal) | CPT/HCPCS: 87086 ==

== ENCOUNTER → 2023-11-26 15:09 | Outpatient (BNVA) | payer MEDICARE, OTHER, SELFPAY | PROVIDERS: PCP Family Medicine; Visit Provider Student in an Organized Health Care Education/Training Program | DX: M16.11 Unilateral primary osteoarthritis, right hip (principal) | CPT/HCPCS: 99214 ==

== ENCOUNTER 2023-11-30 07:12 | Outpatient (CLI) | payer MEDICARE, OTHER, SELFPAY ==
--- NOTE | 2023-11-30 07:15 | USCV_ITS ---
Shannan Meehan Age: 78 Gender: F : 1945 Exam Date: 11/30/2023 07:23 Ordering Phys: Yue Begum MD ([email or web address]) Technologist: MIAL Exam Location: [facility] [place] Indication: ABNORMAL EKG BP: 124 / 58 HR: 67 Rhythm: Sinus Technical Quality: Adequate MEASUREMENTS (Male / Female) Normal Values 2D ECHO LV Diastolic Diameter PLAX 4.2 cm 4.2 - 5.9 / 3.9 - 5.3 cm IVS Diastolic Thickness 1.1 cm 0.6 - 1.0 / 0.6 - 0.9 cm IVS Systolic Thickness 1.9 cm LVPW Diastolic Thickness 1.2 cm 0.6 - 1.0 / 0.6 - 0.9 cm LVPW Systolic Thickness 1.7 cm LVOT Diameter 2.0 cm LV Ejection Fraction 2D Teich 67.6 % LV Ejection Fraction MOD 2C 56.0 % LV Ejection Fraction 2C AL 56.7 % LA Diameter 3.6 cm RA Systolic Volume 4C AL 13.6 ml RA Systolic Volume 4C MOD 13.2 ml LA Sys Volume AL 31.3 cm cubed LA Sys Volume Index AL 18.4 cm cubed/m squared Aorta at Sinotubular Diameter 2.4 cm IVC Diameter 1.3 cm M-MODE LA Ao Ratio MM 1.0 AV Cusp Separation MM 1.7 cm DOPPLER AV Peak Velocity 119.0 cm/s LVOT Peak Velocity 79.0 cm/s AV Area Cont Eq vti 2.1 cm squared AV Area Cont Eq pk 2.1 cm squared MV Peak Velocity 105.0 cm/s MV Area PHT 3.2 cm squared Mitral E to A Ratio 1.0 TR Peak Velocity 199.0 cm/s TR Peak Gradient 15.8 mmHg TR Mean Velocity 167.0 cm/s TR Mean Gradient 11.8 mmHg TR Velocity Time Integral 63.5 cm TV Peak E Velocity 47.0 cm/s Right Atrial Pressure 3.0 mmHg Pulmonary Artery Systolic Pressu 18.8 mmHg RV Ejection Time 0.3 s FINDINGS Left Ventricle Normal left ventricular size and systolic function, EF 68%.no regional wall motion abnormalities. Grade I/IV diastolic dysfunction (abnormal relaxation filling pattern), normal to mildly elevated filling pressures. Mildly increased left ventricular cavity size. Right Ventricle The right ventricle is normal in size and function. Right Atrium The right atrium is normal in size. Left Atrium Mildly increased left atrial size. Mitral Valve No gross abnormalities no Aortic Valve No gross abnormalities noted Tricuspid Valve No gross abnormalities noted. Trace tricuspid valve regurgitation. Estimated pulmonary artery peak systolic pressure within normal limits Pulmonic Valve Pulmonic valve not well visualized. Pericardium Normal pericardium without effusion. Aorta Normal ascending aorta dimension. IVC Normal inferior vena cava. CONCLUSIONS Normal left ventricular size and systolic function, EF 68%.no regional wall motion abnormalities. Grade I/IV diastolic dysfunction (abnormal relaxation filling pattern), normal to mildly elevated filling pressures. Mildly increased left ventricular cavity size. Mildly increased left atrial size. Trace tricuspid valve regurgitation. Estimated pulmonary artery peak systolic pressure within normal limits There is no pericardial effusion. There are no intracardiac masses. Compared to the study from 08/05/2022, there may not be a significant change Dr Yue Begum MD [facility] (Electronically Signed) Final Date: 30 November 2023 19:56 S
== END 2023-11-30 07:13 | disposition home or self-care (01) ==
LOC: RAD 07:12
PROVIDERS: PCP Family Medicine; Visit Provider Internal Medicine Cardiovascular Disease
DX: R94.31 Abnormal electrocardiogram [ECG] [EKG] (principal); I50.30 Unspecified diastolic (congestive) heart failure
CPT/HCPCS: 93306

== ENCOUNTER → 2023-12-03 10:31 | Outpatient (BNVA) | payer MEDICARE, OTHER, SELFPAY | PROVIDERS: PCP Family Medicine; Visit Provider Internal Medicine Cardiovascular Disease | DX: R07.9 Chest pain, unspecified (principal) | CPT/HCPCS: 93005 ==

== ENCOUNTER 2023-12-14 13:03 | Inpatient (IN) | payer MEDICARE, OTHER, SELFPAY ==
[2023-12-14] VITALS (17 sets, daily range): BP systolic 92–134; BP diastolic 44–67; PULSE 69–114; RESP 12–25; TEMP 36.3–37.3; O2SAT 88–100; BMI 23.5
[2023-12-14] MEDS: sodium chloride 0.9% 1,000 ML 30 ML IV (08:35)
[2023-12-14] MEDS: acetaminophen 1,000 MG/100 ML PIGGYBACK 400 MG IV ×2 (08:36→15:24)
[2023-12-14] MEDS: scopolamine 1.5 Patch 1 PATCH TRANSDERMA (08:37)
[2023-12-14] MEDS: ketorolac 30 mg/mL INJ IVP (08:37)
--- NOTE | 2023-12-14 08:41 | SUR.PREOP ---
Patient reports NO UTI symptoms currently
[2023-12-14 08:46] LABS: Basophils % 0.4 %; Eosinophils # 0.1 10^3/uL (0.0-0.8); Eosinophils % 1.6 %; Hematocrit 39.6 % (36-47); Lymphocytes # 2.3 10^3/uL (0.8-4.8); Lymphocytes % 33.9 %; Mean Corpuscular HGB Conc 31.6 g/dL (30-55); Mean Corpuscular Hemoglobin 28.8 pg (27-33); Mean Corpuscular Volume 91.2 fl (85-98); Mean Platelet Volume 10.6 fL (7.4-10.4); Monocytes # 0.8 10^3/uL (0.2-0.9); Monocytes % 12.2 %; Neutrophils # 3.51 10^3/uL (1.8-7.7); Neutrophils % 51.6 %; Nucleated Red Blood Cells % 0 %; Platelet Count 278 10^3/cmm (157-399); Red Blood Count 4.34 10^6/uL (3.85-5.65); Red Cell Distribution Width 13.7 % (12.1-15.1); White Blood Count 6.81 10^3/uL (3.29-11.43)
[2023-12-14 08:59] LABS: Blood Urea Nitrogen 13 mg/dL (8-23); Calcium 9.1 mg/dL (8.5-10.5); Carbon Dioxide 29 mmol/L (22-29); Chloride 105 mmol/L (98-107); Creatinine Clr Calc Pharmacy 51.9191; Glucose 84 mg/dL (65-115); Osmolality Calculated 295 mOsm/kg (285-295); Sodium 143 mmol/L (136-145)
--- NOTE | 2023-12-14 09:38 | W.PM.OPSUD ---
Surgery/Procedure H&P Update DATE OF PROCEDURE: December 14, 2023 DATE H&P PERFORMED: 11/26/23 H&P UPDATE INFORMATION: I have reviewed H&P completed within last 30 days, I have examined patient prior to procedure and No changes to prior documentation CHANGES TO PREVIOUS DOCUMENTATION: None. Patient is clear the preoperative clearance process received cardiac clearance, she has had no new urinary symptoms at this point in time. We talked once again about the ins and outs procedure risk benefits complication alternatives of surgery and through shared decision making like to proceed with surgical intervention. All questions answered at this time. PREOP DIAGNOSIS: Right hip degenerative joint disease PRIMARY INDICATION FOR PROCEDURE: Right hip degenerative joint disease PLANNED PROCEDURE: Operation Date: 12/14/23 09:50 Proposed Procedures p Jae Robot Anterior Hip Arthroplasty(Right) - Soren Almanza DO
--- NOTE | 2023-12-14 09:40 | ANES.PREANE2 ---
Pre-Anesthetic Assessment Height/Weight: Height 1.63 m Weight 62.142 kg Temp Pulse Resp BP Pulse Ox O2 Del Method 97.6 F 69 18 134/57 99 Room Air 12/14/23 08:10 12/14/23 08:10 12/14/23 08:10 12/14/23 08:10 12/14/23 08:10 12/14/23 08:10 Preop Diagnosis: Right hip degenerative joint disease Operation Date: 12/14/23 09:50 Proposed Procedures p Jae Robot Anterior Hip Arthroplasty(Right) - Soren Almanza DO Familial anesthetic complications: None Was Beta Radha taken within 24 hours: N/A Was Clonidine taken within 24 hours: N/A Last intake: Intake Last Liquid Date 12/13/23 Last Liquid Time 22:00 Last Solid Date 12/13/23 Last Solid Time 19:30 Social No alcohol and No tobacco Exam alert, oriented x 3, clear to auscultation bilaterally and regular rate & rhythm Airway Mallampati: Class III Dentition: partials CV/HEM Hypertension tkasubo - cleared by Dr. Begum GI Gastroesophageal Reflux Disease Metabolic Thyroid Disease Anesthetic Plan ASA status: 3 Anesthesia: Regional (specify below) Risk of > 500 ml blood loss (7ml/kg in children): Yes, adequate IV access and fluids planned Medications/Allergies Home Medications Medication Instructions Recorded Confirmed Last Taken Type cholecalciferol (vitamin D3) 125 5,000 unit PO QAM 08/16/19 12/11/23 12/12/23 History mcg (5,000 unit) tablet (Vitamin D3) vit A 300 mcg-C 200 mg-E 27 1 tab PO BEDTIME 08/16/19 12/11/23 12/12/23 History mg-lutein 2 mg and minerals tablet (Vision Formula (with lutein)) krill oil 500 mg capsule 500 mg PO BEDTIME 02/28/20 12/11/23 11/28/23 History diphenhydramine HCl 25 mg capsule 25 mg PO BEDTIME PRN Sleep 08/05/22 12/11/23 12/13/23 History (Benadryl) alendronate 70 mg tablet 70 mg PO Q7D #12 tabs 12/07/23 12/11/23 12/07/23 Rx citalopram 10 mg tablet 10 mg PO DAILY 12/11/23 12/11/23 12/13/23 History ezetimibe 10 mg tablet 10 mg PO DAILY 12/11/23 12/11/23 12/13/23 History furosemide 20 mg tablet 20 mg PO DAILY 12/11/23 12/11/23 12/13/23 History pantoprazole 40 mg tablet,delayed 40 mg PO DAILY 12/11/23 12/11/23 12/13/23 History release Allergies Allergy/AdvReac Type Severity Reaction Status Date / Time Sulfa (Sulfonamide Allergy ALGY-Rash Verified 12/11/23 09:13 Antibiotics) morphine AdvReac Intermediate ADR-Vomitin Verified 12/11/23 09:13 g simvastatin [From Zocor] AdvReac ADR-Muscle Verified 12/11/23 09:13 Pain Current Medications Generic Name Dose Route Start Last Admin Trade Name Freq PRN Reason Stop Dose Admin Sodium Chloride 1,000 mls @ 30 mls/hr 12/14/23 08:15 12/14/23 08:35 Sodium Chloride 0.9% IV 12/15/23 08:14 30 mls/hr .Q24H AMOR Administration PFSH Anesthesia Medical History Hypertension Hyperlipidemia Takotsubo cardiomyopathy History of nonmelanoma skin cancer History of COVID-19 Vertigo Unstable angina pectoris Chest pain Dysphagia Chronic cystitis Situational anxiety GERD (gastroesophageal reflux disease) Vitamin D deficiency Surgical History History of partial thyroidectomy History of tubal ligation (~1979) History of cholecystectomy (~1988) Family History Mother , AT AGE 97 COLON CANCER Cancer Father , AT AGE 72 CHF No problems noted. Sister Cancer Social History Smoking and tobacco/nicotine status: never used tobacco/nicotine Alcohol intake: never Substance/Drug Use: never Adopted: No Caregiver/support person: No Lives independently: No Household members: spouse Marital status: Current occupational status: unemployed and retired Current gender identity: Female Data Anesthesia 12/14/23 08:27 12/14/23 08:27 Short CBC 12/14/23 Range/Units 08:27 WBC 6.81 (3.29-11.43) 10^3/uL Hgb 12.50 (11.27-16.99) g/dL Hct 39.6 (36-47) % MCV 91.2 (85-98) fl Plt Count 278 (157-399) 10^3/cmm Neut % (Auto) 51.6 % Neut # (Auto) 3.51 (1.8-7.7) 10^3/uL BMP 12/14/23 08:27 Sodium 143 Chloride 105 Carbon Dioxide 29 BUN 13 Creatinine 0.8 Glucose 84 Calcium 9.1 Blood Bank 12/14/23 08:27 Blood Type O Positive Rho(D) Type Rh positive Cardiac Studies: Echocardiogram 11/30/23 Sestamibi Stress Test (Cardiology) 08/05/22
[2023-12-14] MEDS: ceFAZolin 2,000 MG in sodium chloride 0.9% (plus) 50 ML 100 MG IV ×2 (09:45→18:19)
[2023-12-14 10:07] LABS: Anion Gap 12.8 (5-19); Potassium 3.8 mmol/L (3.5-5.1)
[2023-12-14] MEDS: tranexamic acid 1,000 mg/10mL SDV 1000 MG (10:35)
[2023-12-14] MEDS: vancomycin 1,000 MG SDV 1000 MG INTRA-ARTI (11:00)
[2023-12-14] MEDS: lidocaine-epi 2% PF 1:200,000 20 mL SDV XX (11:00)
--- NOTE | 2023-12-14 13:36 | W.PM.BPON ---
Date of Procedure: [December 14, 2023] Surgeon: [Dr. Almanza DO ] Neurology Tech(s): [Henry Almanza PA-C] Procedure(s) performed: [Right total hip arthroplasty with anterior approach and Jae robotic assist] Findings of the procedure(s): [Right hip degenerative joint disease] Estimated blood loss: [400 mL] Specimen(s) removed: [Femur head] Post-operative diagnosis: [Right hip degenerative joint disease]
--- NOTE | 2023-12-14 13:38 | PM.PACU ---
PACU note Narrative: Patient is a 78-year-old female that just had a right total hip arthroplasty. Pt transferred to PACU in stable condition. Dressing is dry. pt is awake and alert. pt can wiggle toes and plantarflex and dorsiflex foot. pt able to perform straight leg raise, Femoral nerve intact. Distal pulses are palpable toes are warm and well-perfused. Cap refill is normal and under 2 seconds. Sensation to foot is intact. Pain is controlled. Exam: awake Disposition: admitted
--- NOTE | 2023-12-14 13:39 | XRR_ITS ---
PROCEDURE INFORMATION: Exam: XR Right Hip Exam date and time: 12/14/2023 1:45 PM Age: 78 years old Clinical indication: Device placement; Other: Total RT hip; Prior surgery; Surgery date: Post-operative (0-2 days); Additional info: Post op amador, do in pacu TECHNIQUE: Imaging protocol: Radiologic exam of the right hip. Views: 1 view hip with pelvis when performed. COMPARISON: OT XR hip RT 1V wo/w pel [id number] 12/14/2023 11:08 AM FINDINGS: Bones/joints: Total hip replacement. Anatomic alignment. Bone and metal are intact. Periarticular gas.. No acute fracture. Soft tissues: Unremarkable. XR/XR hip RT 2-3V wo/w pel* [id number] IMPRESSION: Normal following replacement.
--- NOTE | 2023-12-14 13:41 | PM.OP ---
Operative Report Date of procedure: December 14, 2023 Surgeon: Soren Almanza DO Emergency Response Officer: Henry Almanza PA-C: PA was necessary for assistance in this case with leg positioning retraction and protection of neurovascular structures as well as assistance in implantation, wound closure and dressing application. Procedure: Preoperative diagnosis: Right hip degenerative joint disease post-op diagnosis: Same Procedure done: Right total hip arthroplasty?Jae robotic assisted?anterior?approach Implants: Liz Trident acetabular shell size 50 mm [place] acetabular screw 30 mm Liz acetabular screw 25 mm Accolade II 127 degree size 6? femur stem Trident 0 degree polyethylene 36 degree inner diameter 36 mm femoral head ceramic -2.5 mm Surgeon: Soren Almanza DO Anesthesia: General Estimated blood loss: 400 mL IV fluids: 2000 mL, 250mL Albumin Complications: None Findings: See operative report narrative Condition: stable Disposition: floor Brief History: Patient is a 78-year-old female presented to my outpatient office setting findings consistent with [id number]-[id number] arthritis advanced degenerative joint disease of the right hip.? We talked about treatment options as far as nonoperative and operative intervention. Pt has failed conservative treatment.? Patient's right hip degenerative joint disease has been so severe she has been decreased ambulatory given her painn and decreased range of motion.? we talked about treatment options at this point time pt understands the risk benefits complication alternatives surgical nonsurgical treatment options.? Patient understands the risk of surgery and agrees to proceed.? Patient has underwent a preoperative evaluation. Pt cleared for surical intervention. Pt understood and was agreeable to proceed with a right total hip arthroplasty consent was reviewed and signed with patient.?? All questions answered.? Patient will be admitted postoperatively. Procedure: Patient was seen evaluated in the preoperative holding area.? Consent was reviewed and signed with patient.? Correct operative extremity was then marked. ? All questions were answered at this time.? Once cleared by anesthesia used to brought back to the operative suite he then underwent anesthesia per the anesthesia department. The patient was administered tranexamic acid and preop antibiotics, and placed in the supine position. All bony prominences were properly padded, securely fixed to the table, and administered?general?anesthetic. The patient was subsequently transferred from the hospital bed to the [place] table. Bilateral lower extremities were placed in the traction boots. The pelvis was well approximated against the perineal post.? Final timeout performed.? Patient received appropriate preoperative antibiotics. Both hips were then prepped and draped in a normal orthopedic fashion.? Started with a small incision 2 fingerbreadths above the ASIS on the left iliac wing to place? pelvic arrays.? Small incision was made directly down to bone.? 3 pelvic pins were placed with excellent fixation.? The robotic array was secured to the nonoperative iliac wing using sterile technique. The extremity was then definitively draped in standard, sterile fashion.? The array was found to be visible by the robot. ?A standard??anterior?supine approach was performed to the?operative hip joint. The skin was incised down to the tensor fascia katerine muscle and fascia. Fascia was split longitudinally in line with its fibers. The tensor fascia katerine muscle was retracted laterally. The appropriate retractors were placed superiorly. Lateral circumflex vessels were identified and appropriately ligated. The hip capsule was then identified.? Appropriate retractors were placed superiorly and inferiorly along the capsule directly onto bone.? That was split longitudinally up to the acetabular rim in line with the femoral neck. The femoral capsule was found to be significantly hypertrophic, thickened, and significantly fibrotic. The capsule was then elevated both superiorly and inferiorly down to the lesser trochanter as well as up towards the greater trochanter.? Tag stitches were applied with 0 Vicryl into the capsule.? Femoral check point was?then inserted and confirmed on the lateral trochanter proximal femur.? .? A distal marker?of a sterile EKG lead was placed into the distal femur for measurement of leg lengths.? Preoperative leg lengths were registered and confirmed at this point. Next the appropriate-sized neck cut was then performed after being measured with robotic assistance. Femoral head was removed atraumatically this was found to have significant degenerative changes and deformity with significant osteophyte formation.? Femoral head was found to be severely degenerated and flattening with, eburnated bone. Acetabulum was also inspected and was found to have peripheral osteophytes as well as no evidence of cartilage consistent with hpgi-ff-thea arthritis.? Appropriate retractors were then placed in the?anterior?and posterior wall.? The remaining labrum was then excised from the periphery of the acetabular rim. Pulvinar was excised.? At this point registration for the Jae was performed on the acetabular side and confirmed. Once confirmed, any osteophytes able to be were removed. We planned 40 degrees of lateral opening and 20 degrees of anteversion. At this point, we reamed and medialized to the inner wall of the acetabulum with a size?50?reamer for line to line fit.?The acetabulum was found to have good bleeding bone throughout.?? Reamer removed excellent bleeding bone circumferentially with sufficient?anterior?and posterior wall. ?The definitive acetabular cup 50 mm was inserted and impacted under?Jae guidance with the appropriate amount of anteversion and lateral opening. This was confirmed to be appropriately impacted. Positioning and graft referring to Jae guidance. It was then secured with 2x 6.5 mm cancellous screws in appropriate safe zone position.? I subsquently drilled measured and place appropriate length acetabular screws which measured 30 mm and 25 mm.? These had excellent fixation final x-rays were taken of the acetabular work and showed a seated and well fixed acetabular cup with appropriate position acetabular screws.? ?Next a 36-mm X3 neutral liner was impacted into the?acetabular shell and secured. Hip was then irrigated with copious amounts of irrigation. At this point, the remaining femoral releases were then performed allowing the adequate mobilization of the?right?femur.? Traction was confirmed to being off to the right lower extremity and the femur was then externally rotated, extended, and adducted giving adequate exposure of the proximal femur in the surgical wound. During exposure of the femur I did have to excise the superior leaflet of the capsule as this was significantly hypertrophic and was determined would affect appropriate in line broaching as well as the reduction. This was subsequently excised performing a capsulotomy. Box cut was then used to enter the intramedullary canal of the?femur. Canal finder was placed down the canal of the?operative femur. Appropriate-sized broaches from a size 0 up to a size 6 were impacted down the operative femoral canal with the appropriate amount of anteversion.? A multiple trials were attempted and it was found that?-2.5mm neck was found to be most appropriate for a soft tissue tensioning offset, stability and the leg lengths that was confirmed with Jae. ?Stability was then assessed and excellent stability with patient external rotation of greater than 90 degrees and traction with no evidence of hip instability.? Appropriate tension noted of the soft tissues. At this point, the hip was relocated.?Jae guidance was again used to confirm appropriate leg lengths.? I utilized C arm to evaluate for leg lengths as well I did slightly at the lengthen comparative to the contralateral extremity but this was the appropriate size for patient's stability and excellent soft tissue tensioning as well as this was mapped with her preoperative planning given she had been significantly shortened given her arthritis.? Operative hip was then re-dislocated using a bone hook. All trials were then removed from the?operative femur. Adequate exposure was then once again obtained. The trials were removed. The definitive Accolade II stem size 6 was impacted down the?femoral canal with the appropriate amount of anteversion. The appropriate sized head 36 mm ceramic -2.5mm was impacted onto the trunnion, and the?operative?hip was then relocated with traction and internal rotation. Final measurements were obtained on Jae confirming leg lengths and offset.? Once again hip stability was assessed and found to have excellent stability and appropriate soft tissue tensioning.? Hip was irrigated with copious amounts of irrigation.? Vancomycin powder was placed within the wound bed for added infection prophylaxis.? ? The superficial layer of the tensor fascia katerine fascia was closed using 0 stratafix suture in a running fashion.? Subcutaneous tissues were closed with running 3-0 Stratafix, skin was closed with 4-0 monocryl.?Surgical Prineo glue and steri strips were?applied and covered with a ERICKA dressing to the operative side.?The incision on the non-operative side for the robotic array was irrigated and closed with layered fashion of 0 Vicryl, 2-0 Vicryl and running Monocryl suture and surgical glue and covered with Silverlon. ?The patient was subsequently awoken per Anesthesia and transferred to PACU in satisfactory condition. ?Leg lengths and rotational profile were found to be appropriate. ? DISPOSITION: The patient will be admitted to the hospital for initiation of DVT prophylaxis, physical therapy, pain control. The patient is to weight bear as tolerated.?Anterior?hip precautions, postoperative antibiotics,?postoperative TXA and Eliquis?for DVT prophylaxis.? Patient will receive appropriate discharge instructions as well as pain medication postoperatively and will follow up in my office in 2 weeks.? Patient with work with PT/OT.? Internal medicine will be consulted for medical management
--- NOTE | 2023-12-14 13:43 | PM.CONSULT ---
Providers/Reason For Consult Consulting Physician/Specialty*: Orthopedic Reason for Consult*: Hip arthroplasty, medical management Attending Physician: Soren Almanza DO Primary Care Provider: Carine Colbert MD History of Present Illness History of Present Illness Shannan Meehan is a 78 year old female with a past medical history of hypertension, hyperlipidemia, who presents [facility] for right hip arthroplasty by Dr. Almanza, seen postoperatively, alert to person, to place, not to time, follows commands, denies any chest pain, no shortness of breath, denies a history of CAD no history of strokes, no history of diabetes, no history of smoking Review of Systems Const: Denies: fever(s) Card: Denies: chest pain Resp: Denies: dyspnea GI: Denies: abdominal pain Medications/Allergies Home Medications Medication Instructions Recorded Confirmed Last Taken Type cholecalciferol (vitamin D3) 125 5,000 unit PO QAM 08/16/19 12/11/23 12/12/23 History mcg (5,000 unit) tablet (Vitamin D3) vit A 300 mcg-C 200 mg-E 27 1 tab PO BEDTIME 08/16/19 12/11/23 12/12/23 History mg-lutein 2 mg and minerals tablet (Vision Formula (with lutein)) krill oil 500 mg capsule 500 mg PO BEDTIME 02/28/20 12/11/23 11/28/23 History diphenhydramine HCl 25 mg capsule 25 mg PO BEDTIME PRN Sleep 08/05/22 12/11/23 12/13/23 History (Benadryl) alendronate 70 mg tablet 70 mg PO Q7D #12 tabs 12/07/23 12/11/23 12/07/23 Rx citalopram 10 mg tablet 10 mg PO DAILY 12/11/23 12/11/23 12/13/23 History ezetimibe 10 mg tablet 10 mg PO DAILY 12/11/23 12/11/23 12/13/23 History furosemide 20 mg tablet 20 mg PO DAILY 12/11/23 12/11/23 12/13/23 History pantoprazole 40 mg tablet,delayed 40 mg PO DAILY 12/11/23 12/11/23 12/13/23 History release Allergies Allergy/AdvReac Type Severity Reaction Status Date / Time Sulfa (Sulfonamide Allergy ALGY-Rash Verified 12/11/23 09:13 Antibiotics) morphine AdvReac Intermediate ADR-Vomitin Verified 12/11/23 09:13 g simvastatin [From Zocor] AdvReac ADR-Muscle Verified 12/11/23 09:13 Pain Current Medications Generic Name Dose Route Start Last Admin Trade Name Charlesq PRN Reason Stop Dose Admin Sodium Chloride 1,000 mls @ 30 mls/hr 12/14/23 08:15 12/14/23 10:55 Sodium Chloride 0.9% IV 12/15/23 08:14 Infused .Q24H AMOR Infusion PFSH Acute PFSH: Medical History Hypertension Hyperlipidemia Takotsubo cardiomyopathy History of nonmelanoma skin cancer History of COVID-19 Vertigo Unstable angina pectoris Chest pain Dysphagia Chronic cystitis Situational anxiety GERD (gastroesophageal reflux disease) Vitamin D deficiency Surgical History History of partial thyroidectomy History of tubal ligation (~1979) History of cholecystectomy (~1988) Family History Mother , AT AGE 97 COLON CANCER Cancer Father , AT AGE 72 CHF No problems noted. Sister Cancer Social History Smoking and tobacco/nicotine status: never used tobacco/nicotine Alcohol intake: never Substance/Drug Use: never Adopted: No Caregiver/support person: No Lives independently: No Household members: spouse Marital status: Current occupational status: unemployed and retired Current gender identity: Female Vitals/I&O/Wt Last Vital Signs Temp 97.6 F 12/14/23 08:10 Pulse 69 12/14/23 08:10 Resp 18 12/14/23 08:10 BP 134/57 12/14/23 08:10 Pulse Ox 99 12/14/23 08:10 O2 Del Method Room Air 12/14/23 08:10 O2 Flow Rate 8 12/14/23 13:33 12/13/23 12/14/23 12/14/23 22:59 06:59 14:59 Intake Total 2400 / 2400 Output Total 550 / 550 Balance 1850 / 1850 Weight last 48 hrs Weight 62.142 kg Physical Exam Const: COMMON NORMALS: no acute distress ORIENTATION/CONSCIOUSNESS: Yes awake, Yes oriented to person and Yes oriented to place; not oriented to time Eye: COMMON NORMALS: Equal, round and reactive pupils present and EOMs intact bilaterally PUPIL: Yes Equal, round and reactive pupils present Resp: COMMON NORMALS: normal respiratory effort, No retractions, No use of accessory muscles and clear to auscultation bilaterally AUSCULTATION: clear to auscultation bilaterally Cardio: COMMON NORMALS: regular rate, regular rhythm, S1 normal heart sound present and S2 normal heart sound present RATE: regular rate RHYTHM: regular rhythm HEART SOUNDS: S1 normal heart sound present and S2 normal heart sound present GI: COMMON NORMALS: Normal to inspection, nondistended, normoactive bowel sounds present and non-tender Extremity: COMMON NORMALS: no pedal edema OTHER: surgical site is clean and dry Neuro: SENSORIUM/ORIENTATION: Yes oriented to person, Yes oriented to place and No oriented to time Psych: COMMON NORMALS: mental status grossly normal Urinary Catheter Management: [place]: Cath Placed During This Visit: yes Urinary Catheter Date of Insertion: 12/14/23 Urinary Catheter Time of Insertion: 10:25 Data 12/14/23 08:27 12/14/23 08:27 A&P Assessment and plan (1) S/P total right hip arthroplasty: (2) Hyperlipidemia: Qualifiers: Hyperlipidemia type: mixed hyperlipidemia Qualified Code(s): E78.2 - Mixed hyperlipidemia (3) Hypertension: Qualifiers: Hypertension type: primary hypertension Qualified Code(s): I10 - Essential (primary) hypertension Plan Right hip arthroplasty ? Pain control and anticoagulation as per orthopedic team ? Full code ? Eliquis for DVT prophylaxis History of hypertension, not on any antihypertensive medication, monitor blood pressure Hyperlipidemia continue Zetia Continue citalopram Consult Attestations Medical Necessity Statement: Patient requires hospitalization, for right hip arthroplasty Diagnoses S/P total right hip arthroplasty Z96.641 Mixed hyperlipidemia E78.2 Hyperlipidemia type: mixed hyperlipidemia Primary hypertension I10 Hypertension type: primary hypertension
--- NOTE | 2023-12-14 13:57 | XR_ITS ---
WS: [id number] C-ARM RADIOGRAPHS RIGHT HIP; 1 IMAGES HISTORY: RIGHT HIP ANTERIOR ARTHROPLASTY COMPARISON: None available. Intraoperative imaging during RIGHT hip arthroplasty. On this single image the components appear appr opriate in position and alignment. XR/XR hip RT 1V wo/w pel [id number] IMPRESSION: Intraoperative imaging during RIGHT hip arthroplasty.
--- NOTE | 2023-12-14 14:05 | ANE.PACU2 ---
Inpatient post-anesthesia follow up: Airway intact: Yes Vital signs: Temperature 98.3 F Pulse Rate 104 Respiratory Rate 13 Blood Pressure 118/57 Pulse Oximetry 94 Oxygen Delivery Me thod Room Air Oxygen Flow Rate 8 Fraction of Inspir ed Oxygen Hydration adequate: Yes Nausea and vomiting: No Pain level: 1 Mental status: Baseline
[2023-12-14] MEDS: ketorolac 30 mg/mL INJ 15 MG IVP (15:21)
[2023-12-14] MEDS: ondansetron 2 mg/ML SDV 2 mL 4 MG IVP (15:22)
[2023-12-14] MEDS: oxyCODONE 5 mg IR Tab/Cap PO (15:22)
[2023-12-14] MEDS: tranexamic acid 1,000 MG/100 ML PREMIX 600 MG IV (15:23)
[2023-12-14] MEDS: calcium carb-vit d 600mg/400unit 1 Tablet 1 EACH PO (18:20)
[2023-12-14] MEDS: HYDROmorphone 1 mg/mL INJ 1 mL 0.5 MG IVP (18:20)
[2023-12-14] MEDS: sennosides-docusate Tablet 2 TAB PO (18:20)
[2023-12-14] MEDS: iron polysaccharide complex 150 mg Capsule PO (18:21)
[2023-12-14] MEDS: mupirocin oint 22 gm 1 APPLIC NASAL (18:21)
[2023-12-14] MEDS: lactated ringers 1,000 ML 100 ML IV (18:22)
[2023-12-14] MEDS: sodium chloride 0.9% 1,000 ML 999 ML IV (23:40)
[2023-12-15] VITALS (12 sets, daily range): BP systolic 89–113; BP diastolic 46–62; PULSE 84–100; RESP 16–18; TEMP 36.4–36.9; O2SAT 91–99
[2023-12-15] MEDS: acetaminophen 1,000 MG/100 ML PIGGYBACK 400 MG IV ×2 (00:45→08:23)
[2023-12-15 01:00] LABS: Basophils % 0.1 %; Lymphocytes # 1.4 10^3/uL (0.8-4.8); Lymphocytes % 13.7 %; Mean Corpuscular HGB Conc 31.3 g/dL (30-55); Mean Corpuscular Hemoglobin 28.5 pg (27-33); Mean Corpuscular Volume 91.3 fl (85-98); Monocytes # 1.1 10^3/uL (0.2-0.9); Monocytes % 11.4 %; Neutrophils # 7.46 10^3/uL (1.8-7.7); Neutrophils % 74.5 %; Nucleated Red Blood Cells % 0 %; Platelet Count 177 10^3/cmm (157-399); Red Blood Count 2.63 10^6/uL (3.85-5.65); White Blood Count 10.01 10^3/uL (3.29-11.43)
[2023-12-15] MEDS: ceFAZolin 2,000 MG in sodium chloride 0.9% (plus) 50 ML 100 MG IV ×2 (01:10→10:35)
[2023-12-15 01:17] LABS: Blood Urea Nitrogen 11 mg/dL (8-23); Calcium 7.2 mg/dL (8.5-10.5); Carbon Dioxide 26 mmol/L (22-29); Chloride 107 mmol/L (98-107); Creatinine Clr Calc Pharmacy 51.9191; Glucose 117 mg/dL (65-115); Osmolality Calculated 290 mOsm/kg (285-295); Sodium 140 mmol/L (136-145)
[2023-12-15] MEDS: ketorolac 30 mg/mL INJ 15 MG IVP (05:33)
[2023-12-15 06:37] LABS: Basophils % 0.2 %; Eosinophils % 0.3 %; Hematocrit 26.6 % (36-47); Lymphocytes % 20.3 %; Mean Corpuscular HGB Conc 32.3 g/dL (30-55); Mean Corpuscular Hemoglobin 29.2 pg (27-33); Mean Corpuscular Volume 90.2 fl (85-98); Mean Platelet Volume 9.7 fL (7.4-10.4); Monocytes # 1.3 10^3/uL (0.2-0.9); Monocytes % 13.3 %; Neutrophils # 6.46 10^3/uL (1.8-7.7); Neutrophils % 65.4 %; Nucleated Red Blood Cells % 0 %; Platelet Count 172 10^3/cmm (157-399); Red Blood Count 2.95 10^6/uL (3.85-5.65); Red Cell Distribution Width 14.4 % (12.1-15.1); White Blood Count 9.87 10^3/uL (3.29-11.43)
[2023-12-15] MEDS: oxyCODONE 5 mg IR Tab/Cap PO (08:21)
[2023-12-15] MEDS: iron polysaccharide complex 150 mg Capsule PO ×2 (08:21→17:00)
[2023-12-15 08:48] LABS: Ferritin 68 ng/mL (15-150); Iron 148 ug/dL (37-145); Percent Saturation 71.1 % (20-50); Total Iron Binding Capacity 208 mcg/dl; Unsaturated Iron Binding 60 ug/dL (112-347)
[2023-12-15] MEDS: citalopram 20 mg Tablet 10 MG PO (09:27)
[2023-12-15] MEDS: lactated ringers 1,000 ML 100 ML IV ×2 (09:27→21:27)
[2023-12-15] MEDS: chlorhexidine gluconate 0.12% Btl 473 mL 30 ML MUCOUS MEM ×4 (09:28→21:26)
[2023-12-15] MEDS: sennosides-docusate Tablet 2 TAB PO ×2 (09:28→17:00)
[2023-12-15] MEDS: multivitamin therapeutic Tablet 1 TAB PO (09:28)
[2023-12-15] MEDS: calcium carb-vit d 600mg/400unit 1 Tablet 1 EACH PO ×2 (09:28→17:00)
[2023-12-15] MEDS: mupirocin oint 22 gm 1 APPLIC NASAL ×2 (09:29→17:01)
[2023-12-15] MEDS: ezetimibe 10 mg Tablet PO (09:32)
--- NOTE | 2023-12-15 09:47 | PC.CHAP ---
Pastoral Care Encounter/Spiritual Assessment Type of Contact [] Declined cash posting clerk visit [] Patient/Family/Request visit [] Outpatient visit [] Follow-up visit [] Physician referral [] Code/Alert [x] Routine visit [] Staff referral [] Actively dying [] Patient sleeping [] Family support [] [] Out of room [] Palliative care [] [] Receiving care in room [] Pre-surgical visit [] Trauma [] Long length of stay [] ICU visit [] Other: Relational/Emotional Strength [x] Patient feels connected with others/family/visitors/staff [] Distress [] Loneliness/isolation [] Abandonment Spirituality of Patient [x] Person of Mercedes [] Attends Shinto of their Mercedes [x] Believes in Prayer [] Reads Bible or Gnosticism materials [] There are Spiritual issues to be addressed Channel Development Director Interventions [x] Prayer [] Active listening [] Non-anxious presence [x] Spiritual/emotional support [] Crisis/trauma care [] Spiritual counseling [] Bereavement support [] Provided bereavement packet [] Provided Bible/devotional materials [] Provided toy/stuffed animal, coloring book to patient or family member [] Provided Communion [] Anointing/[place] [] Salvation [x] Completed spiritual assessment [] Other: Impact on Illness or Injury [] Angry [] Fearful [] Anxious [] Often cries [] Exhaustion [] Unable to work [] Unable to attend anglican [] Unable to walk/stand [] Unable to read [] Unable to drive [] Unable to eat/drink [] Unable to sleep [] Unable to be with family [] Patient intubated [] Other: Summary Time spent with patient 5 min
[2023-12-15 12:12] LABS: Basophils % 0.2 %; Eosinophils # 0.1 10^3/uL (0.0-0.8); Eosinophils % 0.8 %; Hematocrit 26.4 % (36-47); Lymphocytes # 1.6 10^3/uL (0.8-4.8); Lymphocytes % 18.2 %; Mean Corpuscular HGB Conc 32.2 g/dL (30-55); Mean Corpuscular Hemoglobin 29.1 pg (27-33); Mean Corpuscular Volume 90.4 fl (85-98); Mean Platelet Volume 10.8 fL (7.4-10.4); Monocytes % 11.2 %; Neutrophils # 6.21 10^3/uL (1.8-7.7); Neutrophils % 68.9 %; Nucleated Red Blood Cells % 0 %; Platelet Count 173 10^3/cmm (157-399); Red Blood Count 2.92 10^6/uL (3.85-5.65); Red Cell Distribution Width 15.2 % (12.1-15.1); White Blood Count 9.01 10^3/uL (3.29-11.43)
--- NOTE | 2023-12-15 13:05 | P.PN_ITS ---
Subjective 2 Subjective: Patient seen and examined this afternoon she is recovering well. She did have a drop in her hemoglobin received 1 unit PRBC. She has had some lightheadedness and softer pressures when getting up. No other issues overnight. Hospitalist on board and medically managing. Appreciate their assistance. Vitals/I&O/Wt Last Vital Signs Temp 98.2 F 12/15/23 11:50 Pulse 84 12/15/23 11:50 Resp 16 12/15/23 11:50 BP 89/51 12/15/23 11:50 Pulse Ox 94 12/15/23 11:50 O2 Del Method Room Air 12/15/23 11:50 O2 Flow Rate 8 12/14/23 13:38 12/14/23 12/15/23 12/15/23 22:59 06:59 14:59 Intake Total 970 / 3420 2608.334 / 6028.334 948.333 / 948.333 Output Total 400 / 950 750 / 1700 Balance 570 / 2470 1858.334 / 4328.334 948.333 / 948.333 Weight last 48 hrs Weight 160 lb 3.2 oz Weight 137 lb Weight 137 lb Physical Exam 2 Narrative: Examination of the right hip demonstrates dressing inessa is on and in place with good seal normal postoperative swelling compartments are soft compressible no palpable hematoma or fluid accumulation appreciated normal postoperative bruising ecchymosis around the incision site of hip the Inessa dressing good seal with only spot blood saturation. Patient is able to perform straight leg raise as well as plantarflex and dorsiflex ankle sensations intact light touch distally. Distal pulses palpable. Dressing to the left hip clean dry and intact stable perform straight leg raise just normal tenderness to palpation of the incision site but no excessive swelling or drainage noted here. Urinary Catheter Management: [place]: Cath Placed During This Visit: yes, but has since been removed by the nurse Reason for Continuing Indwelling Catheter: Decision to DC Catheter Urinary Catheter Date of Insertion: 12/14/23 Urinary Catheter Time of Insertion: 10:25 Date Urinary Catheter Removed: 12/15/23 Time Urinary Catheter Discontinued: 05:40 Data 12/16/23 05:46 12/16/23 05:46 Xray Ortho: My impression: Postoperative x-rays of the right hip reviewed in person interpreted by myself demonstrating a stable right total hip arthroplasty. A&P Assessment and plan (1) S/P total right hip arthroplasty: (2) Postoperative anemia: Plan Received 1 unit PRBC per hospitalist A.m. labs reviewed PT/OT Weight-bear as tolerated right lower extremity Postoperative pain medication Postoperative antibiotics, postop TXA X-rays reviewed Internal medicine on board for medical management Will continue observation and observe given patient received units of PRBC and still having some lightheadedness when getting up with therapy. Attestations 2 Medical Necessity Statement*: Ongoing postoperative care right total hip arthroplasty, acute postoperative anemia Coding Level of Care Code Acute Code for Chg Fwd Diagnoses S/P total right hip arthroplasty Z96.641 Postoperative anemia D64.9 Time Spent (min) 15
--- NOTE | 2023-12-15 13:57 | P.PN_ITS ---
Subjective 2 Subjective: Patient was seen this morning, she does report feeling lightheaded and dizzy at times, but blood pressures have been soft throughout the night, denies any bloody or black stools, does report report feeling very tired, she tells me that she did require blood transfusion many years ago when she had a cholecystectomy, she has not had any issues with anemia, no bloody or black stools reported, she had a colonoscopy many years ago, there was no acute findings, denies any dysuria, no hematuria, denies any flank pain, no abdominal pain Vitals/I&O/Wt Last Vital Signs Temp 98.2 F 12/15/23 11:50 Pulse 84 12/15/23 11:50 Resp 16 12/15/23 11:50 BP 89/51 12/15/23 11:50 Pulse Ox 94 12/15/23 11:50 O2 Del Method Room Air 12/15/23 11:50 O2 Flow Rate 8 12/14/23 13:38 12/14/23 12/15/23 12/15/23 22:59 06:59 14:59 Intake Total 970 / 3420 2608.334 / 6028.334 1628.333 / 1628.333 Output Total 400 / 950 750 / 1700 300 / 300 Balance 570 / 2470 1858.334 / 4328.334 1328.333 / 1328.333 Weight last 48 hrs Weight 72.665 kg Weight 62.142 kg Weight 62.142 kg Physical Exam 2 Const: COMMON NORMALS: no acute distress and patient oriented x3 Resp: COMMON NORMALS: normal respiratory effort, No retractions, No use of accessory muscles and clear to auscultation bilaterally AUSCULTATION: clear to auscultation bilaterally Cardio: COMMON NORMALS: regular rate, regular rhythm, S1 normal heart sound present and S2 normal heart sound present RATE: regular rate RHYTHM: r egular rhythm HEART SOUNDS: S1 normal heart sound present and S2 normal heart sound present GI: COMMON NORMALS: Normal to inspection, nondistended, normoactive bowel sounds present and non-tender Extremity: COMMON NORMALS: no calf tenderness and no pedal edema Neuro: COMMON NORMALS: patient oriented x3 Psych: COMMON NORMALS: mental status grossly normal Urinary Catheter Management: [place]: Cath Placed During This Visit: yes, but has since been removed by the nurse Reason for Continuing Indwelling Catheter: Decision to DC Catheter Urinary Catheter Date of Insertion: 12/14/23 Urinary Catheter Time of Insertion: 10:25 Date Urinary Catheter Removed: 12/15/23 Time Urinary Catheter Discontinued: 05:40 Data 12/15/23 11:46 12/15/23 00:49 A&P Assessment and plan (1) S/P total right hip arthroplasty: (2) Hyperlipidemia: Qualifiers: Hyperlipidemia type: mixed hyperlipidemia Qualified Code(s): E78.2 - Mixed hyperlipidemia (3) Hypertension: Qualifiers: Hypertension type: primary hypertension Qualified Code(s): I10 - Essential (primary) hypertension (4) Postoperative hypotension: (5) Postoperative anemia: Plan Right hip arthroplasty ? Pain control and anticoagulation as per orthopedic team ? Full code ? Eliquis for DVT prophylaxis currently on hold, SCDs History of hypertension, not on any antihypertensive medication, monitor blood pressure Hyperlipidemia continue Zetia Continue citalopram Postoperative hypotension ? Multifactorial from anemia, anesthetic effect ? Cortisol, TSH, lactic acid, UA ? Continue IV fluids Postoperative anemia ? Status post 1 unit PRBC ? Hold Eliquis ? Iron studies, ferritin, Hemoccult stool Monitor hemodynamics closely ? Monitor hemoglobin ? Hold Eliquis ? Protonix, Carafate ? Monitor closely Attestations 2 Medical Necessity Statement*: Patient requires hospitalization for postoperative hypertension, postoperative anemia, Diagnoses S/P total right hip arthroplasty Z96.641 Mixed hyperlipidemia E78.2 Hyperlipidemia type: mixed hyperlipidemia Primary hypertension I10 Hypertension type: primary hypertension Postoperative hypotension I95.81 Postoperative anemia D64.9
[2023-12-15] MEDS: sucralfate 1 gm/10 mL Oral Liq UDC PO ×2 (14:16→21:26)
[2023-12-15] MEDS: pantoprazole 40 mg SDV IVP (14:16)
[2023-12-15 15:17] LABS: Thyroid Stimulating Hormone 0.82 uIU/mL (0.27-4.20)
[2023-12-15 16:58] LABS: Lactic Sepsis W/Reflex 1.8 mmol/L (0.5-2.2)
[2023-12-15 17:44] LABS: Add Urine Microscopic? NO; Charge for UA Resulting for Rev
[2023-12-15 18:13] LABS: Bilirubin Urine Neg (Negative); Blood Urine Neg (Negative); Glucose Urine UA Norm (Normal); Ketones Urine Negative (Negative); Leukocyte Esterase Urine Negative (Negative); Nitrate Urine Negative (Negative); Protein Urine Neg (Negative); Specific Gravity, Urine 1.015 (1.005-1.030); Urine Appearance Clear (CLEAR); Urine Color Yellow (Yellow); Urobilinogen Urine Norm (Negative); pH Urine 5 (5-7)
[2023-12-15 18:18] LABS: Hematocrit 27.1 % (36-47)
[2023-12-15] MEDS: magnesium hydroxide 30 mL UDC 60 ML PO (21:26)
[2023-12-16] VITALS (8 sets, daily range): BP systolic 98–119; BP diastolic 58–66; PULSE 89–101; RESP 16–18; TEMP 36.4–37.4; O2SAT 92–97; BMI 27.6
[2023-12-16 01:17] LABS: Hematocrit 25.8 % (36-47)
[2023-12-16] MEDS: sucralfate 1 gm/10 mL Oral Liq UDC PO ×4 (01:26→20:16)
[2023-12-16] MEDS: pantoprazole 40 mg SDV IVP ×2 (01:26→14:09)
[2023-12-16 06:10] LABS: Basophils % 0.2 %; Eosinophils # 0.1 10^3/uL (0.0-0.8); Eosinophils % 0.5 %; Hematocrit 26.3 % (36-47); Lymphocytes # 1.8 10^3/uL (0.8-4.8); Lymphocytes % 15.6 %; Mean Corpuscular HGB Conc 31.9 g/dL (30-55); Mean Corpuscular Hemoglobin 28.3 pg (27-33); Mean Corpuscular Volume 88.6 fl (85-98); Mean Platelet Volume 10.8 fL (7.4-10.4); Monocytes # 1.4 10^3/uL (0.2-0.9); Monocytes % 12.2 %; Neutrophils # 8.11 10^3/uL (1.8-7.7); Neutrophils % 70.9 %; Nucleated Red Blood Cells % 0 %; Platelet Count 172 10^3/cmm (157-399); Red Blood Count 2.97 10^6/uL (3.85-5.65); Red Cell Distribution Width 15.1 % (12.1-15.1); White Blood Count 11.44 10^3/uL (3.29-11.43)
[2023-12-16 06:32] LABS: Anion Gap 10.4 (5-19); Blood Urea Nitrogen 7 mg/dL (8-23); Carbon Dioxide 28 mmol/L (22-29); Chloride 105 mmol/L (98-107); Creatinine Clr Calc Pharmacy 55.8799; Glucose 121 mg/dL (65-115); Osmolality Calculated 289 mOsm/kg (285-295); Potassium 3.4 mmol/L (3.5-5.1); Sodium 140 mmol/L (136-145)
[2023-12-16] MEDS: lactated ringers 1,000 ML 100 ML IV (07:36)
[2023-12-16] MEDS: calcium carb-vit d 600mg/400unit 1 Tablet 1 EACH PO ×2 (07:39→18:02)
[2023-12-16] MEDS: citalopram 20 mg Tablet 10 MG PO (07:39)
[2023-12-16] MEDS: sennosides-docusate Tablet 2 TAB PO ×2 (07:39→18:02)
[2023-12-16] MEDS: multivitamin therapeutic Tablet 1 TAB PO (07:39)
[2023-12-16] MEDS: chlorhexidine gluconate 0.12% Btl 473 mL 30 ML MUCOUS MEM ×4 (07:40→20:16)
[2023-12-16] MEDS: ezetimibe 10 mg Tablet PO (07:40)
[2023-12-16] MEDS: mupirocin oint 22 gm 1 APPLIC NASAL ×2 (07:40→18:02)
[2023-12-16] MEDS: oxyCODONE 5 mg IR Tab/Cap PO ×2 (07:54→16:19)
[2023-12-16] MEDS: iron polysaccharide complex 150 mg Capsule PO ×2 (07:56→18:01)
[2023-12-16] MEDS: aspirin 325 mg EC Tablet PO (13:06)
[2023-12-16 16:17] LABS: Hematocrit 26.2 % (36-47)
--- NOTE | 2023-12-16 17:41 | P.PN_ITS ---
Subjective 2 Subjective: Patient was seen this morning does report intermittent lightheadedness, blood pressures are a bit orthostatic upon standing up, denies any bloody or black stools, Vitals/I&O/Wt Last Vital Signs Temp 99.3 F 12/16/23 16:00 Pulse 99 12/16/23 16:00 Resp 18 12/16/23 16:19 BP 114/66 12/16/23 16:00 Pulse Ox 92 12/16/23 16:00 O2 Del Method Room Air 12/16/23 16:00 O2 Flow Rate 8 12/14/23 13:38 12/16/23 12/16/23 12/16/23 06:59 14:59 22:59 Intake Total 240 / 3116.666 1959 Balance 240 / 2816.666 1959 Weight last 48 hrs Weight 73.142 kg Weight 72.665 kg Physical Exam 2 Const: COMMON NORMALS: no acute distress and patient oriented x3 Resp: COMMON NORMALS: normal respiratory effort, No retractions, No use of accessory muscles and clear to auscultation bilaterally AUSCULTATION: clear to auscultation bilaterally Cardio: COMMON NORMALS: regular rate, regular rhythm, S1 normal heart sound present and S2 normal heart sound present RATE: regular rate RHYTHM: r egular rhythm HEART SOUNDS: S1 normal heart sound present and S2 normal heart sound present GI: COMMON NORMALS: Normal to inspection, nondistended, normoactive bowel sounds present and non-tender Extremity: COMMON NORMALS: no pedal edema Neuro: COMMON NORMALS: patient oriented x3 Psych: COMMON NORMALS: mental status grossly normal Urinary Catheter Management: [place]: Cath Placed During This Visit: yes, but has since been removed by the nurse Reason for Continuing Indwelling Catheter: Other Urinary Catheter Date of Insertion: 12/14/23 Urinary Catheter Time of Insertion: 10:25 Date Urinary Catheter Removed: 12/15/23 Time Urinary Catheter Discontinued: 05:40 Data 12/16/23 16:01 12/16/23 05:46 A&P Assessment and plan (1) S/P total right hip arthroplasty: (2) Hyperlipidemia: Qualifiers: Hyperlipidemia type: mixed hyperlipidemia Qualified Code(s): E78.2 - Mixed hyperlipidemia (3) Hypertension: Qualifiers: Hypertension type: primary hypertension Qualified Code(s): I10 - Essential (primary) hypertension (4) Postoperative hypotension: (5) Postoperative anemia: (6) GI bleed: Plan Right hip arthroplasty ? Pain control and anticoagulation as per orthopedic team ? Full code ? Eliquis for DVT prophylaxis currently on hold, SCDs History of hypertension, not on any antihypertensive medication, monitor blood pressure Hyperlipidemia continue Zetia Continue citalopram Postoperative hypotension ? Multifactorial from anemia, anesthetic effect ? Cortisol, TSH, lactic acid, UA within normal limits ? Continue IV fluids Postoperative anemia ? Status post 1 unit PRBC ? Hold Eliquis, start aspirin 325 ? Iron studies, ferritin, Hemoccult stool, has evidence of early iron deficiency, Hemoccult stool pending, possible slow GI bleed? Monitor hemodynamics closely ? Monitor hemoglobin ? Protonix, Carafate ? Monitor closely Plan for start aspirin 325, monitor hemodynamics monitor hemoglobin, monitor for another 24 hours Attestations 2 Medical Necessity Statement*: Patient requires hospitalization due to postoperative hypotension with anemia, concerns for slow GI bleed Diagnoses S/P total right hip arthroplasty Z96.641 Mixed hyperlipidemia E78.2 Hyperlipidemia type: mixed hyperlipidemia Primary hypertension I10 Hypertension type: primary hypertension Postoperative hypotension I95.81 Postoperative anemia D64.9 GI bleed K92.2
--- NOTE | 2023-12-16 17:59 | PM.PN ---
Subjective Subjective: Patient seen and examined this afternoon patient is recovered well and has not required any more units of PRBC hemoglobins remained stable around 8.5. She feels much improved as far as getting up and working with therapy. Started her on blood thinner talk with hospitalist and would like to observe for 1 more night. Patient understands agrees current plan. Questions answered. Likely discharge tomorrow. Vitals/I&O/Wt Last Vital Signs Temp 99.3 F 12/16/23 16:00 Pulse 99 12/16/23 16:00 Resp 18 12/16/23 16:19 BP 114/66 12/16/23 16:00 Pulse Ox 92 12/16/23 16:00 O2 Del Method Room Air 12/16/23 16:00 O2 Flow Rate 8 12/14/23 13:38 12/16/23 12/16/23 12/16/23 06:59 14:59 22:59 Intake Total 240 / 3116.666 1959 / 1960 240 / 2200 Balance 240 / 2816.666 1959 / 1959 240 / 2200 Weight last 48 hrs Weight 161 lb 4 oz Weight 160 lb 3.2 oz Physical Exam Narrative: Examination of the right hip demonstrates dressing inessa is on and in place with good seal normal postoperative swelling compartments are soft compressible no palpable hematoma or fluid accumulation appreciated normal postoperative bruising ecchymosis around the incision site of hip the Inessa dressing good seal with only spot blood saturation. Patient is able to perform straight leg raise as well as plantarflex and dorsiflex ankle sensations intact light touch distally. Distal pulses palpable. Dressing to the left hip clean dry and intact stable perform straight leg raise just normal tenderness to palpation of the incision site but no excessive swelling or drainage noted here. Urinary Catheter Management: [place]: Cath Placed During This Visit: yes, but has since been removed by the nurse Reason for Continuing Indwelling Catheter: Other Urinary Catheter Date of Insertion: 12/14/23 Urinary Catheter Time of Insertion: 10:25 Date Urinary Catheter Removed: 12/15/23 Time Urinary Catheter Discontinued: 05:40 Data 12/16/23 16:01 12/16/23 05:46 A&P Assessment and plan (1) S/P total right hip arthroplasty: (2) Postoperative anemia: Plan A.m. labs reviewed PT/OT Weight-bear as tolerated right lower extremity Postoperative pain medication Postoperative antibiotics, postop TXA X-rays reviewed Internal medicine on board for medical management Resume patient on aspirin today for DVT prophylaxis will monitor 1 more night and recheck her hemoglobin tomorrow after discussion with hospitalist likely discharge her tomorrow. She is improving well with therapy. Attestations Medical Necessity Statement*: Ongoing care for postoperative total hip replacement as well as requiring 1 unit PRBC postoperative from acute postoperative anemia. Coding Level of Care Code Acute Code for Chg Fwd Diagnoses S/P total right hip arthroplasty Z96.641 Postoperative anemia D64.9 Time Spent (min) 15
[2023-12-16 23:34] LABS: Hematocrit 24.6 % (36-47)
[2023-12-17] VITALS (7 sets, daily range): BP systolic 97–116; BP diastolic 55–68; PULSE 86–92; RESP 16–18; TEMP 36.4–37.4; O2SAT 90–95
[2023-12-17] MEDS: sucralfate 1 gm/10 mL Oral Liq UDC PO ×4 (01:18→20:53)
[2023-12-17] MEDS: pantoprazole 40 mg SDV IVP ×2 (01:18→13:09)
[2023-12-17 06:40] LABS: Basophils % 0.2 %; Eosinophils # 0.3 10^3/uL (0.0-0.8); Eosinophils % 2.7 %; Hematocrit 24.2 % (36-47); Lymphocytes # 1.8 10^3/uL (0.8-4.8); Lymphocytes % 18.6 %; Mean Corpuscular HGB Conc 32.2 g/dL (30-55); Mean Corpuscular Hemoglobin 28.9 pg (27-33); Mean Corpuscular Volume 89.6 fl (85-98); Mean Platelet Volume 11.4 fL (7.4-10.4); Monocytes # 1.4 10^3/uL (0.2-0.9); Monocytes % 13.8 %; Neutrophils # 6.28 10^3/uL (1.8-7.7); Neutrophils % 63.9 %; Nucleated Red Blood Cells % 0 %; Platelet Count 180 10^3/cmm (157-399); Red Cell Distribution Width 14.9 % (12.1-15.1); White Blood Count 9.81 10^3/uL (3.29-11.43)
[2023-12-17 07:01] LABS: Anion Gap 11.4 (5-19); Blood Urea Nitrogen 8 mg/dL (8-23); Carbon Dioxide 29 mmol/L (22-29); Chloride 105 mmol/L (98-107); Creatinine Clr Calc Pharmacy 54.2978; Glucose 97 mg/dL (65-115); Osmolality Calculated 292 mOsm/kg (285-295); Potassium 3.4 mmol/L (3.5-5.1); Sodium 142 mmol/L (136-145)
[2023-12-17] MEDS: sennosides-docusate Tablet 2 TAB PO ×2 (08:20→17:12)
[2023-12-17] MEDS: calcium carb-vit d 600mg/400unit 1 Tablet 1 EACH PO ×2 (08:21→17:12)
[2023-12-17] MEDS: multivitamin therapeutic Tablet 1 TAB PO (08:21)
[2023-12-17] MEDS: iron polysaccharide complex 150 mg Capsule PO ×2 (08:21→17:13)
[2023-12-17] MEDS: chlorhexidine gluconate 0.12% Btl 473 mL 30 ML MUCOUS MEM ×4 (08:23→20:53)
[2023-12-17] MEDS: mupirocin oint 22 gm 1 APPLIC NASAL ×2 (08:23→17:13)
[2023-12-17] MEDS: citalopram 20 mg Tablet 10 MG PO (08:25)
[2023-12-17] MEDS: ezetimibe 10 mg Tablet PO (08:25)
--- NOTE | 2023-12-17 08:38 | CTR_ITS ---
PROCEDURE INFORMATION: Exam: CT Abdomen And Pelvis With Contrast Exam date and time: 12/17/2023 8:53 AM Age: 78 years old Clinical indication: Other: Hypotensive, anemia; Prior surgery; Surgery date: 3-7 days post-operative; Surgery type: RT hip; Additional info: Anemia, hypotension, S/P hip surgery, R/O bleed, retroperitoneal TECHNIQUE: Imaging protocol: Computed tomography of the abdomen and pelvis with contrast. Radiation optimization: All CT scans at this facility use at least one of these dose optimization techniques: automated exposure control; mA and/or kV adjustment per patient size (includes targeted exams where dose is matched to clinical indication); or iterative reconstruction. Contrast material: OMNI 350; Contrast volume: 100 ml; Contrast route: INTRAVENOUS (IV); COMPARISON: CR XR hip RT 2-3V wo/w pel* [id number] 12/14/2023 1:45 PM RADIATION DOSE METRICS: Total DLP (mGy-cm): 552.78 FINDINGS: Limitations: Streak artifact limits evaluation of the pelvis. Pleural spaces: Trace bilateral pleural effusions. Liver: Moderate intrahepatic and extrahepatic biliary ductal dilation, likely secondary to reservoir effect. Gallbladder and bile ducts: Status post cholecystectomy. Pancreas: No ductal dilation. Spleen: Unremarkable. Adrenal glands: Unremarkable. Kidneys and ureters: No hydronephrosis. Stomach and bowel: Colonic diverticulosis without diverticulitis. Appendix: No evidence of appendicitis. Intraperitoneal space: Trace pelvic free fluid. No drainable fluid collection. Vasculature: Unremarkable. Lymph nodes: No enlarged lymph nodes. Urinary bladder: Unremarkable as visualized. Reproductive: Unremarkable as visualized. Bones/joints: Right hip arthroplasty. No acute fracture. Soft tissues: Multifocal areas of soft tissue gas in the right groin and hip, likely postsurgical. CT/CT abdomen pelvis w con* [id number] IMPRESSION: 1. Multifocal areas of soft tissue gas in the right groin and hip, likely postsurgical. 2. No drainable fluid collection.
[2023-12-17] MEDS: iohexol 350 mg/mL 500 mL Btl (per mL) IV (08:57)
[2023-12-17] MEDS: sodium chloride 0.9% 1,000 ML 75 ML IV (09:40)
[2023-12-17 11:17] LABS: Alanine Aminotransferase 51 U/L (0-33); Albumin Level 2.9 g/dL (3.5-5.2); Alkaline Phosphatase 94 U/L (35-105); Aspartate Amino Transferase 47 U/L (0-32); Globulin 2.1 g/dL (1.3-4.6); Total Bilirubin 0.5 mg/dL (0.15-1.2)
[2023-12-17] MEDS: bisacodyl 5 mg Tablet 10 MG PO (11:25)
[2023-12-17] MEDS: magnesium citrate Btl 296 mL PO (11:26)
[2023-12-17 11:27] LABS: INR 1.09 (0.8-1.2)
--- NOTE | 2023-12-17 13:00 | P.PN_ITS ---
Subjective 2 Subjective: Patient seen and examined. Patient still been having some fatigue and lightheadedness. Further questioning from hospitalist as well as with patient this has been going on for some months prior to surgery she get workup for possible GI bleed she has been seen by general surgery and planning for endoscopy tomorrow. At this point she is progressed appropriately with therapy dressing stable no excessive bleeding or swelling at hip incision site. Vitals/I&O/Wt Last Vital Signs Temp 97.6 F 12/17/23 08:00 Pulse 88 12/17/23 08:00 Resp 17 12/17/23 08:00 BP 111/58 12/17/23 08:00 Pulse Ox 93 12/17/23 08:00 O2 Del Method Nasal Cannula 12/16/23 20:00 O2 Flow Rate 8 12/14/23 13:38 12/16/23 12/17/23 12/17/23 22:59 06:59 14:59 Intake Total 390 / 2350 150 / 2500 Balance 390 / 2350 150 / 2500 Weight last 48 hrs Weight 151 lb 9 oz Weight 161 lb 4 oz Physical Exam 2 Narrative: Examination of the right hip demonstrates dressing inessa is on and in place with good seal normal postoperative swelling compartments are soft compressible no palpable hematoma or fluid accumulation appreciated normal postoperative bruising ecchymosis around the incision site of hip the Inessa dressing good seal with only spot blood saturation. Patient is able to perform straight leg raise as well as plantarflex and dorsiflex ankle sensations intact light touch distally. Distal pulses palpable. Dressing to the left hip clean dry and intact stable perform straight leg raise just normal tenderness to palpation of the incision site but no excessive swelling or drainage noted here. Urinary Catheter Management: [place]: Cath Placed During This Visit: yes, but has since been removed by the nurse Reason for Continuing Indwelling Catheter: Other Urinary Catheter Date of Insertion: 12/14/23 Urinary Catheter Time of Insertion: 10:25 Date Urinary Catheter Removed: 12/15/23 Time Urinary Catheter Discontinued: 05:40 Data 12/17/23 05:24 12/17/23 05:24 A&P Assessment and plan (1) S/P total right hip arthroplasty: (2) Postoperative anemia: Plan A.m. labs reviewed PT/OT Weight-bear as tolerated right lower extremity Postoperative pain medication Postoperative antibiotics X-rays reviewed Internal medicine on board for medical management Patient being seen by an general surgery for possible GI bleed CT scan reviewed no evidence of postoperative hematoma normal postoperative right total hip replacement with normal swelling Orthopedics will continue to follow appreciate internal medicine and general surgery's assistance Attestations 2 Medical Necessity Statement*: Ongoing care for postoperative total hip replacement as well as workup for acute postoperative anemia. Coding Level of Care Code Acute Code for Chg Fwd Diagnoses S/P total right hip arthroplasty Z96.641 Postoperative anemia D64.9 Time Spent (min) 15
[2023-12-17 13:24] LABS: Hematocrit 30.3 % (36-47)
--- NOTE | 2023-12-17 13:51 | P.PN_ITS ---
Subjective 2 Subjective: Patient was seen this morning, she is alert oriented x 3, following all commands, she tells me for the last few months, she has felt weak, fatigued, tired, denies any bloody or black stools, however she does tell me that day 2 after surgery after she received Eliquis that night she had a black tarry stool, she is worried about going home with a hemoglobin of 7.8 this morning, her surgical site, looks clean and dry no significant swelling at the right hip, will do CT scan abdomen pelvis to rule out retroperitoneal bleed or bleeding to the hip, if that is within normal limits, we did detailed discussion about pursuing EGD and colonoscopy due to her persistent anemia, she is already received 1 unit of blood, and with aspirin 325 her hemoglobin dropped to 7.8, she is worried about going home and not having a good answer about her anemia, and her further developing anemia, feeling weak fatigued and tired, and especially if she is not sent home on aspirin or Eliquis, she tells me that she is worried about complications, we discussed the risk and benefits of EGD and colonoscopy she voiced understanding, all consents are, agreeable to proceed pending consultation with general surgery, but will await abdominal CT results, abdominal CT, no acute findings, spoke to Dr. Urbano general surgery, place patient on clinical diet, mag citrate, Dulcolax, plan on EGD and colonoscopy tomorrow morning Vitals/I&O/Wt Last Vital Signs Temp 97.6 F 12/17/23 08:00 Pulse 88 12/17/23 08:00 Resp 17 12/17/23 08:00 BP 111/58 12/17/23 08:00 Pulse Ox 93 12/17/23 08:00 O2 Del Method Nasal Cannula 12/16/23 20:00 O2 Flow Rate 8 12/14/23 13:38 12/16/23 12/17/23 12/17/23 22:59 06:59 14:59 Intake Total 390 / 2350 150 / 2500 960 / 960 Output Total 800 / 800 Balance 390 / 2350 150 / 2500 160 / 160 Weight last 48 hrs Weight 68.748 kg Weight 73.142 kg Physical Exam 2 Const: COMMON NORMALS: no acute distress and patient oriented x3 Resp: COMMON NORMALS: normal respiratory effort, No retractions, No use of accessory muscles and clear to auscultation bilaterally AUSCULTATION: clear to auscultation bilaterally Cardio: COMMON NORMALS: regular rate, regular rhythm, S1 normal heart sound present and S2 normal heart sound present RATE: regular rate RHYTHM: r egular rhythm HEART SOUNDS: S1 normal heart sound present and S2 normal heart sound present GI: COMMON NORMALS: Normal to inspection, nondistended, normoactive bowel sounds present and non-tender Extremity: COMMON NORMALS: no pedal edema Neuro: COMMON NORMALS: patient oriented x3 Psych: COMMON NORMALS: mental status grossly normal Urinary Catheter Management: [place]: Cath Placed During This Visit: yes, but has since been removed by the nurse Reason for Continuing Indwelling Catheter: Other Urinary Catheter Date of Insertion: 12/14/23 Urinary Catheter Time of Insertion: 10:25 Date Urinary Catheter Removed: 12/15/23 Time Urinary Catheter Discontinued: 05:40 Data 12/17/23 12:22 12/17/23 05:24 A&P Assessment and plan (1) S/P total right hip arthroplasty: (2) Hyperlipidemia: Qualifiers: Hyperlipidemia type: mixed hyperlipidemia Qualified Code(s): E78.2 - Mixed hyperlipidemia (3) Hypertension: Qualifiers: Hypertension type: primary hypertension Qualified Code(s): I10 - Essential (primary) hypertension (4) Postoperative hypotension: (5) Postoperative anemia: (6) GI bleed: Plan Right hip arthroplasty ? Pain control and anticoagulation as per orthopedic team ? Full code ? Eliquis for DVT prophylaxis currently on hold, SCDs History of hypertension, not on any antihypertensive medication, monitor blood pressure Hyperlipidemia continue Zetia Continue citalopram Postoperative hypotension ? Multifactorial from anemia, anesthetic effect ? Cortisol, TSH, lactic acid, UA within normal limits ? Continue IV fluids Postoperative anemia, concerns for slow GI bleed ? Status post 1 unit PRBC ? Hold Eliquis, received 1 dose of aspirin 325 mg, 24 hours thereafter hemoglobin dropped to 7.8 ? Iron studies, ferritin, Hemoccult stool, has evidence of early iron deficiency, Hemoccult stool pending, possible slow GI bleed? ? With no complaints of lightheadedness, dizziness, blood pressures do drop 10 points upon standing up, complains of chronic fatigue, malaise, evidence of iron deficiency complains of black tarry stools day after receiving Eliquis, general surgery has been consulted for EGD and colonoscopy ? Receiving Dulcolax, mag citrate, IV fluids, clear liquid diet, plan for EGD and colonoscopy tomorrow Monitor hemodynamics closely ? Monitor hemoglobin ? Protonix, Carafate ? Monitor closely Plan on EGD colonoscopy tomorrow, Dulcolax, mag citrate, spoke to patient, spoke to general surgery, spoke with Dr. Almanza, continue to holdEliquis, aspirin, Attestations 2 Medical Necessity Statement*: Patient requires hospitalization for postoperative anemia, concerns for slow GI bleed Diagnoses S/P total right hip arthroplasty Z96.641 Mixed hyperlipidemia E78.2 Hyperlipidemia type: mixed hyperlipidemia Primary hypertension I10 Hypertension type: primary hypertension Postoperative hypotension I95.81 Postoperative anemia D64.9 GI bleed K92.2
--- NOTE | 2023-12-17 13:51 | PC.OT ---
OT TX ATTEMPTED 2X TODAY. PT PREPPING FOR COLONOSCOPY AND BOTH TIMES REPORTS STOMACH FEELING UPSET. PT REPORTS GETTING TO RESTROOM WHEN NEEDED. OT TX WITHHELD AT THIS TIME. PLAN TO ATTEMPT TX AGAIN TOMORROW.
[2023-12-17 19:04] LABS: Hematocrit 25.3 % (36-47)
[2023-12-17] MEDS: oxyCODONE 5 mg IR Tab/Cap PO (20:59)
[2023-12-18] VITALS (15 sets, daily range): BP systolic 99–130; BP diastolic 50–70; PULSE 75–90; RESP 16–20; TEMP 36.1–37.4; O2SAT 92–97
[2023-12-18 01:11] LABS: Hematocrit 21.1 % (36-47)
[2023-12-18] MEDS: pantoprazole 40 mg SDV IVP (01:43)
[2023-12-18] MEDS: sodium chloride 0.9% 1,000 ML 75 ML IV (01:43)
[2023-12-18 03:55] LABS: Basophils % 0.4 %; Eosinophils # 0.2 10^3/uL (0.0-0.8); Eosinophils % 2.9 %; Hematocrit 22.3 % (36-47); Lymphocytes # 1.9 10^3/uL (0.8-4.8); Lymphocytes % 24.2 %; Mean Corpuscular HGB Conc 32.7 g/dL (30-55); Mean Corpuscular Hemoglobin 29.3 pg (27-33); Mean Corpuscular Volume 89.6 fl (85-98); Mean Platelet Volume 10.3 fL (7.4-10.4); Monocytes # 1.1 10^3/uL (0.2-0.9); Monocytes % 14.1 %; Neutrophils # 4.62 10^3/uL (1.8-7.7); Neutrophils % 57.5 %; Nucleated Red Blood Cells % 0 %; Platelet Count 203 10^3/cmm (157-399); Red Blood Count 2.49 10^6/uL (3.85-5.65); Red Cell Distribution Width 14.7 % (12.1-15.1); White Blood Count 8.02 10^3/uL (3.29-11.43)
[2023-12-18 04:17] LABS: Anion Gap 10.2 (5-19); Blood Urea Nitrogen 7 mg/dL (8-23); Calcium 7.5 mg/dL (8.5-10.5); Carbon Dioxide 26 mmol/L (22-29); Chloride 110 mmol/L (98-107); Creatinine Clr Calc Pharmacy 54.2978; Glucose 92 mg/dL (65-115); Osmolality Calculated 294 mOsm/kg (285-295); Potassium 3.2 mmol/L (3.5-5.1); Sodium 143 mmol/L (136-145)
[2023-12-18] MEDS: oxyCODONE 5 mg IR Tab/Cap PO (06:15)
--- NOTE | 2023-12-18 08:03 | P.CONIM_ITS ---
Providers/Reason For Consult 2 Consulting Physician/Specialty*: Dr. Torrey Urbano DO/General surgery Reason for Consult*: Anemia Attending Physician: Soren Almanza DO Primary Care Provider: Carine Colbert MD History of Present Illness History of Present Illness Shannan Meehan is a 78 year old female who is currently in the hospital following hip arthroplasty, was found to be anemic. Her hemoglobin dropped down to 6.9 and she is currently receiving blood transfusions. She reports that her last colonoscopy was 5 years ago and was within normal limits. She denies any family history of colon cancer, personal history of polyps, nausea, emesis, diarrhea, constipation and/or hematochezia. She does report that she gets significant heartburn despite being on Protonix twice daily for the last 2 years. She does report that a few days ago she had a black bowel movement but that has cleared up. She denies any abdominal pain. Review of Systems 2 General: Reports: 10 or more systems reviewed and unremarkable except in HPI and below Medications/Allergies Home Medications Medication Instructions Recorded Confirmed Last Taken Type cholecalciferol (vitamin D3) 125 5,000 unit PO QAM 08/16/19 12/11/23 12/12/23 History mcg (5,000 unit) tablet (Vitamin D3) vit A 300 mcg-C 200 mg-E 27 1 tab PO BEDTIME 08/16/19 12/11/23 12/12/23 History mg-lutein 2 mg and minerals tablet (Vision Formula (with lutein)) krill oil 500 mg capsule 500 mg PO BEDTIME 02/28/20 12/11/23 11/28/23 History diphenhydramine HCl 25 mg capsule 25 mg PO BEDTIME PRN Sleep 08/05/22 12/11/23 12/13/23 History (Benadryl) alendronate 70 mg tablet 70 mg PO Q7D #12 tabs 12/07/23 12/11/23 12/07/23 Rx citalopram 10 mg tablet 10 mg PO DAILY 12/11/23 12/11/23 12/13/23 History ezetimibe 10 mg tablet 10 mg PO DAILY 12/11/23 12/11/23 12/13/23 History furosemide 20 mg tablet 20 mg PO DAILY 12/11/23 12/11/23 12/13/23 History pantoprazole 40 mg tablet,delayed 40 mg PO DAILY 12/11/23 12/11/23 12/13/23 History release Allergies Allergy/AdvReac Type Severity Reaction Status Date / Time Sulfa (Sulfonamide Allergy ALGY-Rash Verified 12/11/23 09:13 Antibiotics) morphine AdvReac Intermediate ADR-Vomitin Verified 12/11/23 09:13 g simvastatin [From Zocor] AdvReac ADR-Muscle Verified 12/11/23 09:13 Pain Current Medications Generic Name Dose Route Start Last Admin Trade Name Freq PRN Reason Stop Dose Admin Calcium Carbonate 1 each 12/14/23 18:00 12/17/23 17:12 Calcium Carb-Vit D 600mg/400unit 1 Tablet PO 1 each BID AMOR Administration Chlorhexidine Gluconate 30 ml 12/14/23 17:00 12/17/23 20:53 Chlorhexidine Gluconate 0.12% Btl 473 Ml MUCOUS MEM 30 ml QID AMOR Administration Citalopram Hydrobromide 10 mg 12/15/23 09:00 12/17/23 08:25 Citalopram 20 Mg Tablet PO 10 mg DAILY AMOR Administration Ezetimibe 10 mg 12/15/23 09:00 12/17/23 08:25 Ezetimibe 10 Mg Tablet PO 10 mg DAILY AMOR Administration Hydromorphone HCl 0.5 mg 12/14/23 14:35 12/14/23 18:20 Hydromorphone 1 Mg/Ml Inj 1 Ml IVP 0.5 mg Q4H PRN Administration BREAKTHROUGH PAIN Sodium Chloride 1,000 mls @ 75 mls/hr 12/18/23 02:00 12/18/23 01:43 Sodium Chloride 0.9% IV 75 mls/hr .[id number] AMOR Administration Multivitamins Therapeutic 1 tab 12/15/23 09:00 12/17/23 08:21 Multivitamin Therapeutic Tablet PO 1 tab DAILY AMOR Administration Mupirocin 1 applic 12/14/23 18:00 12/17/23 17:13 Mupirocin Oint 22 Gm NASAL 12/19/23 17:59 1 applic BID AMOR Administration Ondansetron HCl 4 mg 12/14/23 14:35 12/14/23 15:22 Ondansetron 2 Mg/Ml Sdv 2 Ml IVP 4 mg Q6H PRN Administration NAUSEA AND VOMITING Oxycodone HCl 5 mg 06/17/24 14:35 12/18/23 06:15 Oxycodone 5 Mg Ir Tab/Cap PO 5 mg Q4H PRN Administration MODERATE PAIN Pantoprazole Sodium 40 mg 12/15/23 14:00 12/18/23 01:43 Pantoprazole 40 Mg Sdv IVP 40 mg Q12H AOMR Administration Polysaccharide Iron Complex 150 mg 12/14/23 18:00 12/17/23 17:13 Iron Polysaccharide Complex 150 Mg Capsule PO 150 mg BIDWM AMOR Administration Senna/Docusate Sodium 2 tab 12/14/23 18:00 12/17/23 17:12 Sennosides-Docusate Tablet PO 2 tab BID AMOR Administration Sucralfate 1 gm 12/15/23 14:00 12/18/23 01:35 Sucralfate 1 Gm/10 Ml Oral Liq Udc PO Not Given Q6H AMOR PFSH Acute 2 PFSH: Medical History Hypertension Hyperlipidemia Takotsubo cardiomyopathy History of nonmelanoma skin cancer History of COVID-19 Vertigo Unstable angina pectoris Chest pain Dysphagia Chronic cystitis Situational anxiety GERD (gastroesophageal reflux disease) Vitamin D deficiency Surgical History History of partial thyroidectomy History of tubal ligation (~1979) History of cholecystectomy (~1988) Family History Mother , AT AGE 97 COLON CANCER Cancer Father , AT AGE 72 CHF No problems noted. Sister Cancer Social History Smoking and tobacco/nicotine status: never used tobacco/nicotine Alcohol intake: never Substance/Drug Use: never Adopted: No Caregiver/support person: No Lives independently: No Household members: spouse Marital status: Current occupational status: unemployed and retired Current gender identity: Female Vitals/I&O/Wt Last Vital Signs Temp 97.3 F L 12/18/23 07:57 Pulse 81 12/18/23 07:57 Resp 18 12/18/23 07:57 BP 110/66 12/18/23 07:57 Pulse Ox 96 12/18/23 07:57 O2 Del Method Room Air 12/18/23 07:57 O2 Flow Rate 8 12/14/23 13:38 12/17/23 12/18/23 12/18/23 22:59 06:59 14:59 Intake Total 890 / 1850 350 / 2200 Balance 890 / 1050 350 / 1400 Weight last 48 hrs Weight 150 lb 9 oz Weight 151 lb 9 oz Physical Exam 2 Narrative: General : Patient is well developed , no acute distress, oriented x3 Head : Normal cephalic, a-traumatic. Ears : Pinnae and external canal are normal. Hearing is normal. Eyes : PERRLA, Sclera and injection are normal. No conjunctival discharge. Nose : Mucous membranes are without erythema. Throat : buccal mucosa is normal, gums are without significant recession or hypertrophy. Lungs : Equal chest rise bilaterally, no use of accessory muscles, trachea is midline. Cor : Rate and rhythm are normal. Abdomen : Soft, ND, NT, no g/r/m Extremities : No edema, no cyanosis or clubbing, dorsalis pedis pulses are present bilaterally, non-tender to palpation of calves. Upper extremities are normal bilaterally. Back : non-tender to palpation, no CVA tenderness. Neuro : CN II - XII intact, Upper and lower extremities have equal and full strength Urinary Catheter Management: [place]: Cath Placed During This Visit: yes, but has since been removed by the nurse Reason for Continuing Indwelling Catheter: Other Urinary Catheter Date of Insertion: 12/14/23 Urinary Catheter Time of Insertion: 10:25 Date Urinary Catheter Removed: 12/15/23 Time Urinary Catheter Discontinued: 05:40 Data 12/18/23 03:48 12/18/23 03:48 Micro: Microbiology 12/17/23 17:52 Occult Blood (FIT) - Final Stool A&P Assessment and plan (1) GI bleed: (2) Anemia: (3) GERD (gastroesophageal reflux disease): Qualifiers: Esophagitis presence: esophagitis presence not specified Qualified Code(s): K21.9 - Gastro-esophageal reflux disease without esophagitis Plan She underwent a bowel prep yesterday EGD Colonoscopy The risks and benefits of the procedure, including bleeding, infection, intestinal perforation requiring surgery, missed lesion were explained to the patient. The patient is understanding of the risks and wishes to proceed. Procedure is planned for noon today Coding Level of Care Code 47879 Diagnoses GI bleed K92.2 Anemia D64.9 Gastroesophageal reflux disease, unspecified whether esophagitis present K21.9 Esophagitis presence: esophagitis presence not specified
[2023-12-18] MEDS: sennosides-docusate Tablet 2 TAB PO (08:38)
[2023-12-18] MEDS: multivitamin therapeutic Tablet 1 TAB PO (08:38)
[2023-12-18] MEDS: calcium carb-vit d 600mg/400unit 1 Tablet 1 EACH PO ×2 (08:38→17:35)
[2023-12-18] MEDS: iron polysaccharide complex 150 mg Capsule PO ×2 (08:38→17:35)
[2023-12-18] MEDS: sucralfate 1 gm/10 mL Oral Liq UDC PO (08:38)
[2023-12-18] MEDS: ezetimibe 10 mg Tablet PO (08:38)
[2023-12-18] MEDS: chlorhexidine gluconate 0.12% Btl 473 mL 30 ML MUCOUS MEM (08:39)
[2023-12-18] MEDS: mupirocin oint 22 gm 1 APPLIC NASAL ×2 (08:39→17:35)
[2023-12-18] MEDS: citalopram 20 mg Tablet 10 MG PO (08:48)
--- NOTE | 2023-12-18 10:14 | PC.SOCIAL ---
IMM Update pg 2 of IMM Updated and reviewed w/ patient. Copy provided and copy dated, initialed and placed in chart.
--- NOTE | 2023-12-18 11:48 | ANES.PREANE2 ---
Pre-Anesthetic Assessment Height/Weight: Height 1.63 m Weight 68.294 kg Temp Pulse Resp BP Pulse Ox O2 Del Method O2 Flow Rate 97.3 F L 81 18 110/66 96 Room Air 8 12/18/23 07:57 12/18/23 07:57 12/18/23 07:57 12/18/23 07:57 12/18/23 07:57 12/18/23 07:57 12/14/23 13:38 Preop Diagnosis: Anemia Operation Date: 12/14/23 09:50 Proposed Procedures p Jae Robot Anterior Hip Arthroplasty(Right) - Soren Almanza DO Operation Date: 12/18/23 12:00 Proposed Procedures p EGD(Not Applicable) - Torrey Urbano DO s Colonoscopy(Not Applicable) - Torrey Urbano DO Familial anesthetic complications: None Was Beta Radha taken within 24 hours: N/A Was Clonidine taken within 24 hours: N/A Last intake: Intake Last Liquid Date 12/13/23 Last Liquid Time 22:00 Last Solid Date 12/13/23 Last Solid Time 19:30 Social No alcohol and No tobacco Exam alert, oriented x 3, clear to auscultation bilaterally and regular rate & rhythm Airway Submandibular: within normal limits Cervical ROM: within normal limits Mallampati: Class II Dentition: full Comments: Comments: Implant and a missing crown History/ROS No significant history except as noted and No significant complaints Pulmonary None reported CV/HEM Anemia and Myocardial Infarction ( 8 or 9 years ago, angiogram performed but no intervention) CONCLUSIONS Normal left ventricular size and systolic function, EF 68%.no regional wall motion abnormalities. Grade I/IV diastolic dysfunction (abnormal relaxation filling pattern), normal to mildly elevated filling pressures. Mildly increased left ventricular cavity size. Mildly increased left atrial size. Trace tricuspid valve regurgitation. Estimated pulmonary artery peak systolic pressure within normal limits There is no pericardial effusion. There are no intracardiac masses. Compared to the study from 08/05/2022, there may not be a significant change Takotsubo cardiomyopathy Urinary Tract Infection Hepatic None reported GI Gastroesophageal Reflux Disease (Controlled with med, none this morning) Metabolic Thyroid Disease (Goiter removed 2 years ago) Musc/skel Lower Back Pain, Osteoarthritis/DJD, Scoliosis and Weakness Neuropsych Anxiety, Depression and Headache Anesthetic Plan ASA status: 3 Anesthesia: Anesthesia Evaluation, General and MAC Risk of > 500 ml blood loss (7ml/kg in children): No Medications/Allergies Home Medications Medication Instructions Recorded Confirmed Last Taken Type cholecalciferol (vitamin D3) 125 5,000 unit PO QAM 08/16/19 12/11/23 12/12/23 History mcg (5,000 unit) tablet (Vitamin D3) vit A 300 mcg-C 200 mg-E 27 1 tab PO BEDTIME 08/16/19 12/11/23 12/12/23 History mg-lutein 2 mg and minerals tablet (Vision Formula (with lutein)) krill oil 500 mg capsule 500 mg PO BEDTIME 02/28/20 12/11/23 11/28/23 History diphenhydramine HCl 25 mg capsule 25 mg PO BEDTIME PRN Sleep 08/05/22 12/11/23 12/13/23 History (Benadryl) alendronate 70 mg tablet 70 mg PO Q7D #12 tabs 12/07/23 12/11/23 12/07/23 Rx citalopram 10 mg tablet 10 mg PO DAILY 12/11/23 12/11/23 12/13/23 History ezetimibe 10 mg tablet 10 mg PO DAILY 12/11/23 12/11/23 12/13/23 History furosemide 20 mg tablet 20 mg PO DAILY 12/11/23 12/11/23 12/13/23 History pantoprazole 40 mg tablet,delayed 40 mg PO DAILY 12/11/23 12/11/23 12/13/23 History release Allergies Allergy/AdvReac Type Severity Reaction Status Date / Time Sulfa (Sulfonamide Allergy ALGY-Rash Verified 12/11/23 09:13 Antibiotics) morphine AdvReac Intermediate ADR-Vomitin Verified 12/11/23 09:13 g simvastatin [From Zocor] AdvReac ADR-Muscle Verified 12/11/23 09:13 Pain Current Medications Generic Name Dose Route Start Last Admin Trade Name Freq PRN Reason Stop Dose Admin Calcium Carbonate 1 each 12/14/23 18:00 12/18/23 08:38 Calcium Carb-Vit D 600mg/400unit 1 Tablet PO 1 each BID AMOR Administration Chlorhexidine Gluconate 30 ml 12/14/23 17:00 12/18/23 08:39 Chlorhexidine Gluconate 0.12% Btl 473 Ml MUCOUS MEM 30 ml QID AMOR Administration Citalopram Hydrobromide 10 mg 12/15/23 09:00 12/18/23 08:48 Citalopram 20 Mg Tablet PO 10 mg DAILY AMOR Administration Ezetimibe 10 mg 12/15/23 09:00 12/18/23 08:38 Ezetimibe 10 Mg Tablet PO 10 mg DAILY AMOR Administration Hydromorphone HCl 0.5 mg 12/14/23 14:35 12/14/23 18:20 Hydromorphone 1 Mg/Ml Inj 1 Ml IVP 0.5 mg Q4H PRN Administration BREAKTHROUGH PAIN Sodium Chloride 1,000 mls @ 75 mls/hr 12/18/23 02:00 12/18/23 01:43 Sodium Chloride 0.9% IV 75 mls/hr .[id number] AMOR Administration Multivitamins Therapeutic 1 tab 12/15/23 09:00 12/18/23 08:38 Multivitamin Therapeutic Tablet PO 1 tab DAILY AMOR Administration Mupirocin 1 applic 12/14/23 18:00 12/18/23 08:39 Mupirocin Oint 22 Gm NASAL 12/19/23 17:59 1 applic BID AMOR Administration Ondansetron HCl 4 mg 12/14/23 14:35 12/14/23 15:22 Ondansetron 2 Mg/Ml Sdv 2 Ml IVP 4 mg Q6H PRN Administration NAUSEA AND VOMITING Oxycodone HCl 5 mg 12/14/23 14:35 12/18/23 06:15 Oxycodone 5 Mg Ir Tab/Cap PO 5 mg Q4H PRN Administration MODERATE PAIN Pantoprazole Sodium 40 mg 12/15/23 14:00 12/18/23 01:43 Pantoprazole 40 Mg Sdv IVP 40 mg Q12H AMOR Administration Polysaccharide Iron Complex 150 mg 12/14/23 18:00 12/18/23 08:38 Iron Polysaccharide Complex 150 Mg Capsule PO 150 mg BIDWM AMOR Administration Senna/Docusate Sodium 2 tab 12/14/23 18:00 12/18/23 08:38 Sennosides-Docusate Tablet PO 2 tab BID AMOR Administration Sucralfate 1 gm 12/15/23 14:00 12/18/23 08:38 Sucralfate 1 Gm/10 Ml Oral Liq Udc PO 1 gm Q6H AMOR Administration PFSH Anesthesia Medical History Hypertension Hyperlipidemia Takotsubo cardiomyopathy History of nonmelanoma skin cancer History of COVID-19 Vertigo Unstable angina pectoris Chest pain Dysphagia Chronic cystitis Situational anxiety GERD (gastroesophageal reflux disease) Vitamin D deficiency Surgical History History of partial thyroidectomy History of tubal ligation (~1979) History of cholecystectomy (~1988) Family History Mother , AT AGE 97 COLON CANCER Cancer Father , AT AGE 72 CHF No problems noted. Sister Cancer Social History Smoking and tobacco/nicotine status: never used tobacco/nicotine Alcohol intake: never Substance/Drug Use: never Adopted: No Caregiver/support person: No Lives independently: No Household members: spouse Marital status: Current occupational status: unemployed and retired Current gender identity: Female Data Anesthesia 12/18/23 03:48 12/18/23 03:48 Short CBC 12/16/23 12/16/23 12/17/23 Range/Units 16:01 23:15 05:24 WBC 9.81 (3.29-11.43) 10^3/uL Hgb 8.50 L 8.00 L 7.80 L (11.27-16.99) g/dL Hct 26.2 L 24.6 L 24.2 L (36-47) % MCV 89.6 (85-98) fl Plt Count 180 (157-399) 10^3/cmm Neut % (Auto) 63.9 % Neut # (Auto) 6.28 (1.8-7.7) 10^3/uL 12/17/23 12/17/23 12/18/23 Range/Units 12:22 18:24 00:42 WBC (3.29-11.43) 10^3/uL Hgb 9.50 L 8.10 L 6.90 L (11.27-16.99) g/dL Hct 30.3 L 25.3 L 21.1 L (36-47) % MCV (85-98) fl Plt Count (157-399) 10^3/cmm Neut % (Auto) % Neut # (Auto) (1.8-7.7) 10^3/uL 12/18/23 Range/Units 03:48 WBC 8.02 (3.29-11.43) 10^3/uL Hgb 7.30 L (11.27-16.99) g/dL Hct 22.3 L (36-47) % MCV 89.6 (85-98) fl Plt Count 203 (157-399) 10^3/cmm Neut % (Auto) 57.5 % Neut # (Auto) 4.62 (1.8-7.7) 10^3/uL BMP 12/17/23 12/18/23 05:24 03:48 Sodium 142 143 Potassium 3.4 L 3.2 L Chloride 105 110 H Carbon Dioxide 29 26 BUN 8 7 L Creatinine 0.5 0.5 Glucose 97 92 Calcium 8.0 L 7.5 L Liver Function 12/17/23 Range/Units 05:24 Total Bilirubin 0.5 (0.15-1.2) mg/dL Direct Bilirubin 0.20 (0.00-0.30) mg/dL AST 47 H (0-32) U/L ALT 51 H (0-33) U/L Alkaline Phosphatase 94 (35-105) U/L Albumin 2.9 L (3.5-5.2) g/dL Blood Bank 12/18/23 02:35 Blood Type O Positive Rho(D) Type Rh positive Antibody Screen Negative Coags 12/17/23 05:24 PT 14.50 INR 1.09 Microbiology 12/17/23 17:52 Occult Blood (FIT) - Final Stool Cardiac Studies: Echocardiogram 11/30/23 Sestamibi Stress Test (Cardiology) 08/05/22
[2023-12-18] MEDS: sodium chloride 0.9% 1,000 ML 30 ML IV (11:56)
--- NOTE | 2023-12-18 14:23 | P.PN_ITS ---
Subjective 2 Subjective: Patient was seen this morning, she denies any fevers, chills, no cough, she does report 2 instances of black tarry stools in the last 2 weeks, undergoing EGD and colonoscopy this morning Vitals/I&O/Wt Last Vital Signs Temp 97.7 F 12/18/23 13:14 Pulse 75 12/18/23 13:14 Resp 18 12/18/23 13:14 BP 121/68 12/18/23 13:14 Pulse Ox 97 12/18/23 13:14 O2 Del Method Room Air 12/18/23 13:14 O2 Flow Rate 2 12/18/23 12:47 12/17/23 12/18/23 12/18/23 22:59 06:59 14:59 Intake Total 890 / 1850 350 / 2200 1150 / 1150 Balance 890 / 1050 350 / 1400 1150 / 1150 Weight last 48 hrs Weight 68.294 kg Weight 68.748 kg Physical Exam 2 Const: COMMON NORMALS: no acute distress and patient oriented x3 Resp: COMMON NORMALS: normal respiratory effort, No retractions, No use of accessory muscles and clear to auscultation bilaterally AUSCULTATION: clear to auscultation bilaterally Cardio: COMMON NORMALS: regular rate, regular rhythm, S1 normal heart sound present and S2 normal heart sound present RATE: regular rate RHYTHM: r egular rhythm HEART SOUNDS: S1 normal heart sound present and S2 normal heart sound present GI: COMMON NORMALS: Normal to inspection, nondistended, normoactive bowel sounds present and non-tender Extremity: COMMON NORMALS: no pedal edema Neuro: COMMON NORMALS: patient oriented x3 Psych: COMMON NORMALS: mental status grossly normal Urinary Catheter Management: [place]: Cath Placed During This Visit: yes, but has since been removed by the nurse Reason for Continuing Indwelling Catheter: Other Urinary Catheter Date of Insertion: 12/14/23 Urinary Catheter Time of Insertion: 10:25 Date Urinary Catheter Removed: 12/15/23 Time Urinary Catheter Discontinued: 05:40 Data 12/18/23 03:48 12/18/23 03:48 Micro: Microbiology 12/17/23 17:52 Occult Blood (FIT) - Final Stool A&P Assessment and plan (1) S/P total right hip arthroplasty: (2) Hyperlipidemia: Qualifiers: Hyperlipidemia type: mixed hyperlipidemia Qualified Code(s): E78.2 - Mixed hyperlipidemia (3) Hypertension: Qualifiers: Hypertension type: primary hypertension Qualified Code(s): I10 - Essential (primary) hypertension (4) Postoperative hypotension: (5) Postoperative anemia: (6) GI bleed: Plan Right hip arthroplasty ? Pain control and anticoagulation as per orthopedic team ? Full code ? Eliquis for DVT prophylaxis currently on hold, SCDs History of hypertension, not on any antihypertensive medication, monitor blood pressure Hyperlipidemia continue Zetia Continue citalopram Postoperative hypotension ? Multifactorial from anemia, anesthetic effect ? Cortisol, TSH, lactic acid, UA within normal limits ? Continue IV fluids Postoperative anemia, concerns for slow GI bleed ? Status post 2 unit PRBC ? Hold Eliquis, received 1 dose of aspirin 325 mg, 24 hours thereafter hemoglobin dropped to 7.8, now to 6.3 status post 1 unit PRBC ? Iron studies, ferritin, Hemoccult stool, has evidence of early iron deficiency, Hemoccult stool positive for blood, possible slow GI bleed? ? With no complaints of lightheadedness, dizziness, blood pressures do drop 10 points upon standing up, complains of chronic fatigue, malaise, evidence of iron deficiency complains of black tarry stools day after receiving Eliquis, general surgery has been consulted for EGD and colonoscopy ? EGD and colonoscopy today Monitor hemodynamics closely ? Monitor hemoglobin ? Protonix, Carafate ? Monitor closely Plan o hemoglobin dropped to 6.9 status post 1 unit PRBC in the last few hours, plan for EGD colonoscopy today Attestations 2 Medical Necessity Statement*: Acute anemia, will receive EGD and colonoscopy today, also received hemoglobin monitoring Diagnoses S/P total right hip arthroplasty Z96.641 Mixed hyperlipidemia E78.2 Hyperlipidemia type: mixed hyperlipidemia Primary hypertension I10 Hypertension type: primary hypertension Postoperative hypotension I95.81 Postoperative anemia D64.9 GI bleed K92.2
--- NOTE | 2023-12-18 16:45 | P.PN_ITS ---
Subjective 2 Subjective: Patient seen and examined friend at bedside. She had upper and lower GI scopes today. Patient receivi1 unit PRBC today for a total of 2 during her postoperative course. Will await final recommendations by general surgery and hospitalist. Plan on possible discharge tomorrow. Vitals/I&O/Wt Last Vital Signs Temp 97.7 F 12/19/23 08:00 Pulse 73 12/19/23 08:00 Resp 17 12/19/23 08:00 BP 109/65 12/19/23 08:00 Pulse Ox 96 12/19/23 08:00 O2 Del Method Room Air 12/19/23 04:00 O2 Flow Rate 2 12/18/23 12:47 12/18/23 12/19/23 12/19/23 22:59 06:59 14:59 Intake Total 1720 / 2870 240 / 3110 Balance 1720 / 2870 240 / 3110 Weight last 48 hrs Weight 153 lb 1 oz Weight 150 lb 9 oz Physical Exam 2 Narrative: Examination of the right hip demonstrates dressing inessa is on and in place with good seal normal postoperative swelling compartments are soft compressible no palpable hematoma or fluid accumulation appreciated normal postoperative bruising ecchymosis around the incision site of hip the Inessa dressing good seal with only spot blood saturation. Patient is able to perform straight leg raise as well as plantarflex and dorsiflex ankle sensations intact light touch distally. Distal pulses palpable. Dressing to the left hip clean dry and intact stable perform straight leg raise just normal tenderness to palpation of the incision site but no excessive swelling or drainage noted here. Urinary Catheter Management: [place]: Cath Placed During This Visit: yes, but has since been removed by the nurse Reason for Continuing Indwelling Catheter: Other Urinary Catheter Date of Insertion: 12/14/23 Urinary Catheter Time of Insertion: 10:25 Date Urinary Catheter Removed: 12/15/23 Time Urinary Catheter Discontinued: 05:40 Data 12/19/23 06:10 12/19/23 06:10 A&P Assessment and plan (1) S/P total right hip arthroplasty: (2) Postoperative anemia: Plan A.m. labs reviewed-receiving 1 unit today PT/OT Weight-bear as tolerated right lower extremity Postoperative pain medication X-rays reviewed Started aspirin 81 mg for DVT prophylaxis Internal medicine on board for medical management Patient being seen by an general surgery for possible GI bleed-colonoscopy and EGD today Orthopedics will continue to follow Internal medicine on board for medical management appreciate assistance Will continue to follow and plan for likely discharge tomorrow Attestations 2 Medical Necessity Statement*: Ongoing care status post right total hip arthroplasty as well as receiving 1 unit for acute anemia and undergoing EGD and colonoscopy today Coding Level of Care Code Acute Code for Chg Fwd Diagnoses S/P total right hip arthroplasty Z96.641 Postoperative anemia D64.9
[2023-12-18 17:47] LABS: Basophils % 0.4 %; Eosinophils # 0.2 10^3/uL (0.0-0.8); Hematocrit 29.4 % (36-47); Lymphocytes # 1.8 10^3/uL (0.8-4.8); Lymphocytes % 21.5 %; Mean Corpuscular HGB Conc 32.3 g/dL (30-55); Mean Corpuscular Hemoglobin 29.3 pg (27-33); Mean Corpuscular Volume 90.7 fl (85-98); Mean Platelet Volume 10.3 fL (7.4-10.4); Monocytes % 12.5 %; Neutrophils # 5.23 10^3/uL (1.8-7.7); Neutrophils % 62.9 %; Nucleated Red Blood Cells % 0 %; Platelet Count 264 10^3/cmm (157-399); Red Blood Count 3.24 10^6/uL (3.85-5.65); Red Cell Distribution Width 14.5 % (12.1-15.1); White Blood Count 8.32 10^3/uL (3.29-11.43)
[2023-12-18] MEDS: TRAMadol 50 mg Tablet PO (21:35)
[2023-12-19] VITALS: BP 116/67; PULSE 71; RESP 18; TEMP 36.8; O2SAT 96
[2023-12-19 04:00] VITALS: BP 114/70; PULSE 77; RESP 18; TEMP 36.8; O2SAT 97
[2023-12-19 04:28] VITALS: BMI 26.2
[2023-12-19 06:39] LABS: Basophils % 0.4 %; Eosinophils # 0.3 10^3/uL (0.0-0.8); Eosinophils % 3.7 %; Hematocrit 27.4 % (36-47); Lymphocytes # 2.3 10^3/uL (0.8-4.8); Lymphocytes % 28.5 %; Mean Corpuscular HGB Conc 32.8 g/dL (30-55); Mean Corpuscular Hemoglobin 29.6 pg (27-33); Mean Corpuscular Volume 90.1 fl (85-98); Monocytes # 1.2 10^3/uL (0.2-0.9); Monocytes % 15.4 %; Neutrophils # 4.09 10^3/uL (1.8-7.7); Nucleated Red Blood Cells % 0 %; Platelet Count 248 10^3/cmm (157-399); Red Blood Count 3.04 10^6/uL (3.85-5.65); Red Cell Distribution Width 14.6 % (12.1-15.1); White Blood Count 8.01 10^3/uL (3.29-11.43)
[2023-12-19 06:55] LABS: Anion Gap 11.2 (5-19); Blood Urea Nitrogen 6 mg/dL (8-23); Calcium 7.9 mg/dL (8.5-10.5); Carbon Dioxide 26 mmol/L (22-29); Chloride 105 mmol/L (98-107); Creatinine Clr Calc Pharmacy 54.5426; Glucose 92 mg/dL (65-115); Osmolality Calculated 285 mOsm/kg (285-295); Potassium 3.2 mmol/L (3.5-5.1); Sodium 139 mmol/L (136-145)
[2023-12-19 08:00] VITALS: BP 109/65; PULSE 73; RESP 17; TEMP 36.5; O2SAT 96
[2023-12-19] MEDS: pantoprazole DR 40 mg Tablet PO (08:33)
[2023-12-19] MEDS: iron polysaccharide complex 150 mg Capsule PO ×2 (08:33→17:42)
[2023-12-19] MEDS: multivitamin therapeutic Tablet 1 TAB PO (08:33)
[2023-12-19] MEDS: calcium carb-vit d 600mg/400unit 1 Tablet 1 EACH PO ×2 (08:33→17:42)
[2023-12-19] MEDS: citalopram 20 mg Tablet 10 MG PO (08:34)
[2023-12-19] MEDS: aspirin 81 mg EC Tablet PO (08:46)
[2023-12-19] MEDS: ezetimibe 10 mg Tablet PO (08:47)
--- NOTE | 2023-12-19 11:16 | P.DS_ITS ---
Discharge Providers Date of Admission: 12/15/23 10:29 Date of Discharge: December 19, 2023 Attending Provider at Admission: Soren Almanza DO Attending Provider at Discharge: Soren Almanza DO Consults: Hospitalist Dr. Martinez General surgery Dr. Urbano Primary Care Provider: Carine Colbert MD Diagnoses at Discharge Discharge Diagnosis (1) S/P total right hip arthroplasty: Status: Acute (2) Hyperlipidemia: Status: Acute Qualifiers: Hyperlipidemia type: mixed hyperlipidemia Qualified Code(s): E78.2 - Mixed hyperlipidemia (3) Hypertension: Status: Acute Qualifiers: Hypertension type: primary hypertension Qualified Code(s): I10 - Essential (primary) hypertension (4) Postoperative hypotension: Status: Acute (5) Postoperative anemia: Status: Acute (6) GI bleed: Status: Acute Reason for Visit Reason for Visit: M16.11 Brief History: Status post right total hip arthroplasty anterior approach Hospital Course Hospital Course Patient was brought to the hospital through the preoperative holding area with plan for right total hip arthroplasty for right hip dengerative joint disease. Once cleared by anesthesia for surgery subsequently was taken back to the operative suite underwent anesthesia per the anesthesia department and then underwent right total hip arthroplasty with Jae robotic assistance anterior approach without any complications. Patient was then subsequently taken back to PACU in stable condition recovering well. Once recovered, patient was then subsequently admitted to the floor postoperatively. Internal medicine was consulted for medical management assistance. Patient weightbearing as tolerated to the right lower extremity, anterior hip precautions. PT/OT. Pain control. DVT prophylaxis. Postoperative antibiotics and TXA. dressing was change as needed. Internal medicine was on board and appreciate their medical management and assistance. [ Patient during the postoperative course did have some hypotension postoperatively with softer blood pressures and her hemoglobin down trended she did end up receiving 2 units of PRBC and responded appropriately with this. She was worked up and general surgery was consulted did undergo 2 scopes as far as a colonoscopy and a EGD and there did not appear to have any acute bleeds. She subsequently stabilized and been appropriately worked up and appreciate the management of hospitalist and general surgery. CT of the pelvis demonstrated normal postoperative swelling but no active bleed or accumulating hematoma at the incision sites. Pt was determined on postoperative day [ ] the patient was stable for discharge from orthopedic as well as internal medicine standpoint. Patient's labs were monitored daily. Patient will receive appropriate pain medication as well as DVT prophylaxis postoperatively. Appropriate discharge instructions as well. Patient was then discharged in stable condition. Patient will discharge home. Pt will follow-up with Orthopedics in the office in 2 weeks. Patient understands and agrees with current plan. All questions answered. Understands there is any issues or concerns and contact the office. Physical Exam Narrative: Examination of the right hip demonstrates dressing arvind is on and in place with good seal normal postoperative swelling compartments are soft compressible no palpable hematoma or fluid accumulation appreciated normal postoperative bruising ecchymosis around the incision site of hip the Arvind dressing good seal with only spot blood saturation. Patient is able to perform straight leg raise as well as plantarflex and dorsiflex ankle sensations intact light touch distally. Distal pulses palpable. Dressing to the left hip clean dry and intact stable perform straight leg raise just normal tenderness to palpation of the incision site but no excessive swelling or drainage noted here. Urinary Catheter Management: [place]: Cath Placed During This Visit: yes, but has since been removed by the nurse Reason for Continuing Indwelling Catheter: Other Urinary Catheter Date of Insertion: 12/14/23 Urinary Catheter Time of Insertion: 10:25 Date Urinary Catheter Removed: 12/15/23 Time Urinary Catheter Discontinued: 05:40 Discharge Data Studies Completed and Pending Completed Studies During Hospitalization Category Date Time Status CT abdomen pelvis w con* [id number] Stat Cat Scan 12/17/23 08:38 Completed XR hip RT 1V wo/w pel [id number] Routine Exams 12/14/23 13:57 Completed XR hip RT 2-3V wo/w pel* [id number] Routine Exams 12/14/23 13:39 Completed Pending at discharge Category Date Time Status Basic Metabolic Panel AM LABS Lab 12/20/23 04:00 Ordered Complete Blood Count w/Auto AM LABS Lab 12/20/23 04:00 Ordered Pathology: Surgical [PTH] Routine Pth 12/18/23 12:41 Received Radiology Impressions Hip/Pelvis X-Ray 12/14/23 13:39 IMPRESSION: Normal following replacement. Hip X-Ray 12/14/23 13:57 IMPRESSION: Intraoperative imaging during RIGHT hip arthroplasty. Abdomen/Pelvis CT 12/17/23 08:38 IMPRESSION: 1. Multifocal areas of soft tissue gas in the right groin and hip, likely postsurgical. 2. No drainable fluid collection. Laboratory Results WBC 8.01 10^3/uL (3.29-11.43) 12/19/23 06:10 RBC 3.04 10^6/uL (3.85-5.65) L 12/19/23 06:10 Hgb 9.00 g/dL (11.27-16.99) L 12/19/23 06:10 Hct 27.4 % (36-47) L 12/19/23 06:10 MCV 90.1 fl (85-98) 12/19/23 06:10 MCH 29.6 pg (27-33) 12/19/23 06:10 MCHC 32.8 g/dL (30-55) 12/19/23 06:10 RDW 14.6 % (12.1-15.1) 12/19/23 06:10 Plt Count 248 10^3/cmm (157-399) 12/19/23 06:10 MPV 10.0 fL (7.4-10.4) 12/19/23 06:10 Neut % (Auto) 51.0 % 12/19/23 06:10 Lymph % (Auto) 28.5 % 12/19/23 06:10 [place] % (Auto) 15.4 % 12/19/23 06:10 Eos % (Auto) 3.7 % 12/19/23 06:10 Baso % (Auto) 0.4 % 12/19/23 06:10 Neut # (Auto) 4.09 10^3/uL (1.8-7.7) 12/19/23 06:10 Lymph # (Auto) 2.3 10^3/uL (0.8-4.8) 12/19/23 06:10 [place] # (Auto) 1.2 10^3/uL (0.2-0.9) H 12/19/23 06:10 Eos # (Auto) 0.3 10^3/uL (0.0-0.8) 12/19/23 06:10 Baso # (Auto) 0.0 10^3/uL (0.0-0.1) 12/19/23 06:10 Nucleated RBC % (auto) 0 % 12/19/23 06:10 Nucleated RBCs # 0.0 /100WBC 12/19/23 06:10 PT 14.50 SECONDS (12.1-14.9) 12/17/23 05:24 INR 1.09 (0.8-1.2) 12/17/23 05:24 Sodium 139 mmol/L (136-145) 12/19/23 06:10 Potassium 3.2 mmol/L (3.5-5.1) L 12/19/23 06:10 Chloride 105 mmol/L (98-107) 12/19/23 06:10 Carbon Dioxide 26 mmol/L (22-29) 12/19/23 06:10 Anion Gap 11.2 (5-19) 12/19/23 06:10 BUN 6 mg/dL (8-23) L 12/19/23 06:10 Creatinine 0.5 mg/dL (0.5-0.9) 12/19/23 06:10 GFR Calculation Not Reportable 12/19/23 06:10 Glucose 92 mg/dL (65-115) 12/19/23 06:10 Calculated Osmolality 285 mOsm/kg (285-295) 12/19/23 06:10 Lactic Acid 1.8 mmol/L (0.5-2.2) 12/15/23 16:12 Calcium 7.9 mg/dL (8.5-10.5) L 12/19/23 06:10 Iron 148 ug/dL (37-145) H 12/15/23 06:24 TIBC 208 mcg/dl 12/15/23 06:24 % Saturation 71.1 % (20-50) H 12/15/23 06:24 Unsat Iron Binding 60 ug/dL (112-347) L 12/15/23 06:24 Ferritin 68 ng/mL (15-150) 12/15/23 06:24 Total Bilirubin 0.5 mg/dL (0.15-1.2) 12/17/23 05:24 Direct Bilirubin 0.20 mg/dL (0.00-0.30) 12/17/23 05:24 AST 47 U/L (0-32) H 12/17/23 05:24 ALT 51 U/L (0-33) H 12/17/23 05:24 Alkaline Phosphatase 94 U/L (35-105) 12/17/23 05:24 Total Protein 5.0 g/dL (6.6-8.7) L 12/17/23 05:24 Albumin 2.9 g/dL (3.5-5.2) L 12/17/23 05:24 Globulin 2.1 g/dL (1.3-4.6) 12/17/23 05:24 TSH 0.82 uIU/mL (0.27-4.20) 12/15/23 06:24 Random Cortisol 3.70 ug/dL (2.47-19.5) 12/15/23 06:24 Urine Color Yellow (Yellow) 12/15/23 13:05 Urine Appearance Clear (CLEAR) 12/15/23 13:05 Urine pH 5 (5-7) 12/15/23 13:05 Ur Specific [place] 1.015 (1.005-1.030) 12/15/23 13:05 Urine Protein Neg (Negative) 12/15/23 13:05 Urine Glucose (UA) Norm (Normal) 12/15/23 13:05 Urine Ketones Negative (Negative) 12/15/23 13:05 Urine Blood Neg (Negative) 12/15/23 13:05 Urine Nitrate Negative (Negative) 12/15/23 13:05 Urine Bilirubin Neg (Negative) 12/15/23 13:05 Urine Urobilinogen Norm mg/dL (Negative) 12/15/23 13:05 Ur Leukocyte Esterase Negative (Negative) 12/15/23 13:05 Blood Type O Positive 12/18/23 02:35 Rho(D) Type Rh positive 12/18/23 02:35 Antibody Screen Negative 12/18/23 02:35 Crossmatch See Detail 12/18/23 02:35 Vitals Last Vital Signs Temp 97.7 F 12/19/23 08:00 Pulse 73 12/19/23 08:00 Resp 17 12/19/23 08:00 BP 109/65 12/19/23 08:00 Pulse Ox 96 12/19/23 08:00 O2 Del Method Room Air 12/19/23 04:00 O2 Flow Rate 2 12/18/23 12:47 Discharge Plan Discharge Patient Disposition: Home Health Service Condition: Stable Prescriptions: New oxycodone 5 mg tablet 5 mg PO Q6H PRN (Reason: pain postop) 7 Days Qty: 28 0RF ondansetron 4 mg tablet,disintegrating 4 mg PO Q8H PRN (Reason: nausea and vomiting) 3 Days Qty: 9 0RF aspirin 81 mg tablet,delayed release (DR/EC) 81 mg PO BID 35 Days Qty: 70 0RF Continued cholecalciferol (vitamin D3) [Vitamin D3] 125 mcg (5,000 unit) tablet 5,000 unit PO QAM Vision Formula (with lutein) 1,000 unit-200 mg-60 unit-2 mg tablet 1 tab PO BEDTIME krill oil 500 mg capsule 500 mg PO BEDTIME alendronate 70 mg tablet 70 mg PO Q7D Qty: 12 4RF diphenhydramine HCl [Benadryl] 25 mg Capsule 25 mg PO BEDTIME PRN (Reason: Sleep) citalopram 10 mg tablet 10 mg PO DAILY Rx Instructions: TAKE ONE TABLET BY MOUTH EVERY DAY NEEDED FOR ANXIETY pantoprazole 40 mg tablet,delayed release (DR/EC) 40 mg PO DAILY Rx Instructions: TAKE ONE TABLET BY MOUTH TWICE DAILY furosemide 20 mg tablet 20 mg PO DAILY Rx Instructions: TAKE ONE TABLET BY MOUTH EVERY DAY ezetimibe 10 mg tablet 10 mg PO DAILY Rx Instructions: TAKE ONE TABLET BY MOUTH EVERY MORNING Discharge Orders: Discharge Order (Routine); Ordered 12/19/23 Ordered By: Soren Almanza Referrals: [facility]) [Outside] Yue Begum MD [Physician] - 01/25/24 11:15 am Soren Almanza DO [Physician] - 12/29/23 9:45 am Discharge Diet: Regular Discharge Activity: Limit activity as instructed and Use walker/crutches as instructed Patient Instructions: Opioid Safety Activity Restrictions/Additional Instructions: Orthopedic discharge instructions: Arvind Dressing--Keep dressing on and dry. After 3 days you can remove some of the dressing and shower. disconnect battery pack when showering. Arvind dressing will stay on until follow up appt in 2 weeks. The battery pack for the dressing will at 5-7 days. Battery pack can be removed and discarded once batteries . Weight-bear as tolerated to operative lower extremity Anterior hip precautions as instructed by physical therapy Ice as needed for pain and swelling Take pain medication as prescribed Take antinausea medication as needed Supplement with Citracal vitamin D for bone health and healing Take Colace as needed for constipation Take blood thinner as prescribed (Eliquis) Follow-up in the orthopedic office in 2 weeks Contact the office for any questions or concerns Discharge Attestations Time Spent in Discharge Care*: greater than 30 min Quality Metrics Clinical Quality Measures [ No reported AMI, CVA or VTE this stay] Coding Level of Care Code Acute Code for Chg Fwd Diagnoses S/P total right hip arthroplasty Z96.641 Mixed hyperlipidemia E78.2 Hyperlipidemia type: mixed hyperlipidemia Primary hypertension I10 Hypertension type: primary hypertension Postoperative hypotension I95.81 Postoperative anemia D64.9 GI bleed K92.2 Time Spent (min) 35
--- NOTE | 2023-12-19 12:07 | P.PN_ITS ---
Subjective 2 Subjective: Patient was seen this morning, she is alert and oriented x 4, following all commands, hemoglobin 9, Any bloody or black stools, we discussed her discharge today, she will be discharged on aspirin 81 mg twice daily, she still has a bleeding risk with this but with it her EGD and colonoscopy no acute bleeding, did show sessile polyp, which she has to follow-up with general surgery, I think for now would be reasonable to put her on some sort of DVT prophylaxis given her recent surgery, advised her that if she develops any bloody or black stools continually go to the emergency room have her primary care provider recheck your hemoglobin next week, she does have evidence of iron deficiency anemia they should recheck her iron levels within about a month or so to see if she would qualify for iron infusion nonetheless I am discharging her Protonix and Carafate. I discussed with her that even though I am discharging her on aspirin 81 mg twice daily for DVT prophylaxis after hip surgery she still has a risk of hypercoagulable events if she develops calf pain or calf cell swelling or sudden hemoptysis and shortness of breath immediately go to the emergency room, she voiced understanding, all questions answered Vitals/I&O/Wt Last Vital Signs Temp 97.7 F 12/19/23 08:00 Pulse 73 12/19/23 08:00 Resp 17 12/19/23 08:00 BP 109/65 12/19/23 08:00 Pulse Ox 96 12/19/23 08:00 O2 Del Method Room Air 12/19/23 04:00 O2 Flow Rate 2 12/18/23 12:47 12/18/23 12/19/23 12/19/23 22:59 06:59 14:59 Intake Total 1720 / 2870 240 / 3110 Balance 1720 / 2870 240 / 3110 Weight last 48 hrs Weight 69.428 kg Weight 68.294 kg Physical Exam 2 Const: COMMON NORMALS: no acute distress and patient oriented x3 Resp: COMMON NORMALS: normal respiratory effort, No retractions, No use of accessory muscles and clear to auscultation bilaterally AUSCULTATION: clear to auscultation bilaterally Cardio: COMMON NORMALS: regular rate, regular rhythm, S1 normal heart sound present and S2 normal heart sound present RATE: regular rate RHYTHM: r egular rhythm HEART SOUNDS: S1 normal heart sound present and S2 normal heart sound present GI: COMMON NORMALS: Normal to inspection, nondistended, normoactive bowel sounds present and non-tender Extremity: COMMON NORMALS: no pedal edema Neuro: COMMON NORMALS: patient oriented x3 Psych: COMMON NORMALS: mental status grossly normal Urinary Catheter Management: [place]: Cath Placed During This Visit: yes, but has since been removed by the nurse Reason for Continuing Indwelling Catheter: Other Urinary Catheter Date of Insertion: 12/14/23 Urinary Catheter Time of Insertion: 10:25 Date Urinary Catheter Removed: 12/15/23 Time Urinary Catheter Discontinued: 05:40 Data 12/19/23 06:10 12/19/23 06:10 A&P Assessment and plan (1) S/P total right hip arthroplasty: (2) Hyperlipidemia: Qualifiers: Hyperlipidemia type: mixed hyperlipidemia Qualified Code(s): E78.2 - Mixed hyperlipidemia (3) Hypertension: Qualifiers: Hypertension type: primary hypertension Qualified Code(s): I10 - Essential (primary) hypertension (4) Postoperative hypotension: (5) Postoperative anemia: (6) GI bleed: Plan Right hip arthroplasty ? Pain control and anticoagulation as per orthopedic team ? Full code ? Aspirin 81 mg twice daily History of hypertension, not on any antihypertensive medication, monitor blood pressure Hyperlipidemia continue Zetia Continue citalopram Postoperative hypotension, resolved ? Multifactorial from anemia, anesthetic effect ? Cortisol, TSH, lactic acid, UA within normal limits Postoperative anemia, concerns for slow GI bleed ? Status post 2 unit PRBC ? Hold Kerri, received 1 dose of aspirin 325 mg, 24 hours thereafter hemoglobin dropped to 7.8, now to 6.3 status post 1 unit PRBC ? Iron studies, ferritin, Hemoccult stool, has evidence of early iron deficiency, Hemoccult stool positive for blood, possible slow GI bleed ? With no complaints of lightheadedness, dizziness, blood pressures do drop 10 points upon standing up, complains of chronic fatigue, malaise, evidence of iron deficiency complains of black tarry stools day after receiving Eliquis, general surgery has been consulted for EGD and colonoscopy, which showed sessile polyp, no acute bleeding Monitor hemodynamics closely ? Monitor hemoglobin ? Protonix, Carafate ? Monitor closely Plan will be discharged today Attestations 2 Medical Necessity Statement*: Will be discharged today Diagnoses S/P total right hip arthroplasty Z96.641 Mixed hyperlipidemia E78.2 Hyperlipidemia type: mixed hyperlipidemia Primary hypertension I10 Hypertension type: primary hypertension Postoperative hypotension I95.81 Postoperative anemia D64.9 GI bleed K92.2
[2023-12-19 16:00] VITALS: BP 107/58; PULSE 82; RESP 17; TEMP 36.9; O2SAT 97
[2023-12-19 17:34] VITALS: BP 107/58; PULSE 82; RESP 17; TEMP 36.9; O2SAT 97
--- NOTE | 2023-12-19 17:47 | P.PN_ITS ---
Subjective 2 Subjective: Patient seen and examined. Denies any abdominal pain Vitals/I&O/Wt Last Vital Signs Temp 98.5 F 12/19/23 17:34 Pulse 82 12/19/23 17:34 Resp 17 12/19/23 17:34 BP 107/58 12/19/23 17:34 Pulse Ox 97 12/19/23 17:34 O2 Del Method Room Air 12/19/23 04:00 O2 Flow Rate 2 12/18/23 12:47 12/19/23 12/19/23 12/19/23 06:59 14:59 22:59 Intake Total 240 / 3110 480 / 480 Balance 240 / 3110 480 / 480 Weight last 48 hrs Weight 153 lb 1 oz Weight 150 lb 9 oz Physical Exam 2 Narrative: General: No acute distress, awake alert oriented x 3 Abdomen: Soft, nontender, nondistended Urinary Catheter Management: [place]: Cath Placed During This Visit: yes, but has since been removed by the nurse Reason for Continuing Indwelling Catheter: Other Urinary Catheter Date of Insertion: 12/14/23 Urinary Catheter Time of Insertion: 10:25 Date Urinary Catheter Removed: 12/15/23 Time Urinary Catheter Discontinued: 05:40 Data 12/19/23 06:10 12/19/23 06:10 A&P Assessment and plan (1) GI bleed: (2) Anemia: (3) GERD (gastroesophageal reflux disease): Qualifiers: Esophagitis presence: esophagitis presence not specified Qualified Code(s): K21.9 - Gastro-esophageal reflux disease without esophagitis Plan EGD yesterday 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
== END 2023-12-19 18:25 | disposition home health service (06) | DRG 469 ==
LOC: MEDSURG 13:03
PROVIDERS: Family Medicine; Internal Medicine; Physician Assistant; Surgery; Admitting Provider Student in an Organized Health Care Education/Training Program; PCP Family Medicine; Visit Provider Student in an Organized Health Care Education/Training Program
PROC: 8E0Y0CZ Robotic Assisted Procedure of Lower Extremity, Open Approach (ICD-10-PCS; CPT 27130; principal; 2023-12-14 09:50)
PROC: 0DJ08ZZ Inspection of Upper Intestinal Tract, Via Natural or Artificial Opening Endoscopic (ICD-10-PCS; CPT 43235; principal; 2023-12-18 12:00)
PROC: 0DJD8ZZ Inspection of Lower Intestinal Tract, Via Natural or Artificial Opening Endoscopic (ICD-10-PCS; CPT 45378; 2023-12-18 12:00)
DX: M16.11 Unilateral primary osteoarthritis, right hip (principal); K57.31 Diverticulosis of large intestine without perforation or abscess with bleeding; D62 Acute posthemorrhagic anemia; I10 Essential (primary) hypertension; E78.2 Mixed hyperlipidemia; F43.22 Adjustment disorder with anxiety; K21.9 Gastro-esophageal reflux disease without esophagitis; E55.9 Vitamin D deficiency, unspecified; E89.0 Postprocedural hypothyroidism; D12.2 Benign neoplasm of ascending colon; K64.8 Other hemorrhoids; I95.81 Postprocedural hypotension; Z85.828 Personal history of other malignant neoplasm of skin; Z86.16 Personal history of COVID-19
CPT/HCPCS: 36415; 36430; 51702; 73501; 73502; 74177; 76000; 80048; 80076; 81003; 82274; 82533; 82728; 83540; 83550; 83605; 84443; 85014; 85018; 85025; 85610; 86850; 86900; 86920; 88305; 97110; 97116; 97162; 97166; 97530; 97535; C1713; C1776; C9113; G0378; J0131; J0690; J1100; J1170; J1885; J2250; J2405; J2704; J3010; J3370; J3490; J7030; J7120; P9016; P9040; P9045; Q9967

== ENCOUNTER 2023-12-22 13:13 | Emergency (ER) | payer MEDICARE, OTHER, SELFPAY ==
[2023-12-22 13:34] VITALS: BP 108/63; PULSE 85; RESP 18; TEMP 36.7; O2SAT 96
[2023-12-22 14:35] LABS: Basophils % 0.3 %; Eosinophils # 0.2 10^3/uL (0.0-0.8); Eosinophils % 2.4 %; Hematocrit 33.6 % (36-47); Lymphocytes # 1.9 10^3/uL (0.8-4.8); Lymphocytes % 19.1 %; Mean Corpuscular HGB Conc 31.8 g/dL (30-55); Mean Corpuscular Hemoglobin 29.3 pg (27-33); Mean Corpuscular Volume 92.1 fl (85-98); Mean Platelet Volume 9.4 fL (7.4-10.4); Monocytes # 1.1 10^3/uL (0.2-0.9); Monocytes % 11.2 %; Neutrophils # 6.45 10^3/uL (1.8-7.7); Nucleated Red Blood Cells % 0 %; Platelet Count 480 10^3/cmm (157-399); Red Blood Count 3.65 10^6/uL (3.85-5.65); Red Cell Distribution Width 14.6 % (12.1-15.1); White Blood Count 9.92 10^3/uL (3.29-11.43)
[2023-12-22 14:50] LABS: INR 0.96 (0.8-1.2)
[2023-12-22 14:56] LABS: Alanine Aminotransferase 21 U/L (0-33); Albumin Level 3.5 g/dL (3.5-5.2); Alkaline Phosphatase 93 U/L (35-105); Anion Gap 16.3 (5-19); Aspartate Amino Transferase 21 U/L (0-32); Blood Urea Nitrogen 11 mg/dL (8-23); Calcium 9.1 mg/dL (8.5-10.5); Carbon Dioxide 30 mmol/L (22-29); Chloride 99 mmol/L (98-107); Creatinine Clr Calc Pharmacy 51.9191; Globulin 3.1 g/dL (1.3-4.6); Glucose 106 mg/dL (65-115); Osmolality Calculated 294 mOsm/kg (285-295); Potassium 3.3 mmol/L (3.5-5.1); Sodium 142 mmol/L (136-145); Total Bilirubin 0.5 mg/dL (0.15-1.2); Total Protein 6.6 g/dL (6.6-8.7)
--- NOTE | 2023-12-22 15:47 | ED_ITS ---
HPI - General Adult 2 General: Chief complaint: General Medical Stated complaint: surgery 12/14, black stool Time Seen by Provider: 12/22/23 15:16 Source: patient Mode of arrival: ambulatory Limitations: no limitations History of Present Illness: 78-year-old female states she had a tota l knee replacement last week she also had a colonoscopy as well states she had had a bowel movement till today and states that it was dark and black and was concerned that was bloody. She denies any increased pain she denies any vomiting denies any fevers. Associated symptoms: Deny chest pain, dyspnea, headache(s), nausea, rash or vomiting Review of Systems 2 Const: Denies: fever(s), chills, body aches or change in appetite ENMT: Denies: throat pain or dental pain Card: Denies: chest pain Resp: Denies: dyspnea GI: Reports: change in bowel habits; Denies: abdominal pain, nausea, vomiting or diarrhea Musc: Denies: neck pain or back pain Skin/Breast: Denies: rash Neuro: Denies: headache(s) PFSH ED 2 PFSH: Medical History Hypertension Hyperlipidemia Takotsubo cardiomyopathy History of nonmelanoma skin cancer History of COVID-19 Vertigo Unstable angina pectoris Chest pain Dysphagia Chronic cystitis Situational anxiety GERD (gastroesophageal reflux disease) Vitamin D deficiency Surgical History History of partial thyroidectomy History of tubal ligation (~1979) History of cholecystectomy (~1988) Family History Mother , AT AGE 97 COLON CANCER Cancer Father , AT AGE 72 CHF No problems noted. Sister Cancer Social History Smoking and tobacco/nicotine status: never used tobacco/nicotine Alcohol intake: never Substance/Drug Use: never Adopted: No Caregiver/support person: No Lives independently: No Household members: spouse Marital status: Current occupational status: unemployed and retired Current gender identity: Female Physical Exam 2 Const: COMMON NORMALS: no acute distress, patient oriented x3 and healthy appearing HENMT: COMMON NORMALS: normocephalic and atraumatic HEAD & SCALP: n ormocephalic and atraumatic Eye: COMMON NORMALS: conjunctivae normal CONJUNCTIVA: Yes conjunctivae normal Neck/C-Spine: COMMON NORMALS: full ROM and supple Chest: COMMONS NORMALS: normal inspection of the chest Resp: COMMON NORMALS: normal respiratory effort, No retractions, No use of accessory muscles and clear to auscultation bilaterally AUSCULTATION: clear to auscultation bilaterally Cardio: COMMON NORMALS: regular rate, regular rhythm and No murmurs present (Cardio) RATE: regular rate RHYTHM: regular rhythm GI: OTHER: Rectal exam shows no black tarry stool Hemoccult was negative Extremity: COMMON NORMALS: normal to inspection and full ROM Neuro: COMMON NORMALS: patient oriented x3, moves all extremities and no focal motor deficits Psych: COMMON NORMALS: mental status grossly normal, Normal thought process present and cooperative THOUGHT PROCESS: Normal thought process present Skin: COMMON NORMALS: no rashes or lesions noted and no wounds GENERAL SKIN EXAM: no rashes or lesions noted Course 2 Vital Signs: Vital signs: Vital Signs Temperature 98.0 F 12/22/23 13:34 Pulse Rate 85 12/22/23 13:34 Respiratory Rate 18 12/22/23 13:34 Blood Pressure 108/63 12/22/23 13:34 Pulse Oximetry 96 12/22/23 13:34 [facility] - General Adult Medical Decision Making Patient presents here with concern of black stools rectal exam here was negative no signs of blood hemoglobin is normal patient stable for discharge follow-up PCP return if worsening. Medical Records I reviewed the patient's medical records. Lab Data I reviewed the patient's lab results. 12/22/23 14:16 12/22/23 14:16 Laboratory Results WBC 9.92 10^3/uL (3.29-11.43) 12/22/23 14:16 RBC 3.65 10^6/uL (3.85-5.65) L 12/22/23 14:16 Hgb 10.70 g/dL (11.27-16.99) L 12/22/23 14:16 Hct 33.6 % (36-47) L 12/22/23 14:16 MCV 92.1 fl (85-98) 12/22/23 14:16 MCH 29.3 pg (27-33) 12/22/23 14:16 MCHC 31.8 g/dL (30-55) 12/22/23 14:16 RDW 14.6 % (12.1-15.1) 12/22/23 14:16 Plt Count 480 10^3/cmm (157-399) H 12/22/23 14:16 MPV 9.4 fL (7.4-10.4) 12/22/23 14:16 Neut % (Auto) 65.0 % 12/22/23 14:16 Lymph % (Auto) 19.1 % 12/22/23 14:16 [place] % (Auto) 11.2 % 12/22/23 14:16 Eos % (Auto) 2.4 % 12/22/23 14:16 Baso % (Auto) 0.3 % 12/22/23 14:16 Neut # (Auto) 6.45 10^3/uL (1.8-7.7) 12/22/23 14:16 Lymph # (Auto) 1.9 10^3/uL (0.8-4.8) 12/22/23 14:16 [place] # (Auto) 1.1 10^3/uL (0.2-0.9) H 12/22/23 14:16 Eos # (Auto) 0.2 10^3/uL (0.0-0.8) 12/22/23 14:16 Baso # (Auto) 0.0 10^3/uL (0.0-0.1) 12/22/23 14:16 Nucleated RBC % (auto) 0 % 12/22/23 14:16 Nucleated RBCs # 0.0 /100WBC 12/22/23 14:16 PT 13.00 SECONDS (12.1-14.9) 12/22/23 14:16 INR 0.96 (0.8-1.2) 12/22/23 14:16 Sodium 142 mmol/L (136-145) 12/22/23 14:16 Potassium 3.3 mmol/L (3.5-5.1) L 12/22/23 14:16 Chloride 99 mmol/L (98-107) 12/22/23 14:16 Carbon Dioxide 30 mmol/L (22-29) H 12/22/23 14:16 Anion Gap 16.3 (5-19) 12/22/23 14:16 BUN 11 mg/dL (8-23) 12/22/23 14:16 Creatinine 0.7 mg/dL (0.5-0.9) 12/22/23 14:16 GFR Calculation Not Reportable 12/22/23 14:16 Glucose 106 mg/dL (65-115) 12/22/23 14:16 Calculated Osmolality 294 mOsm/kg (285-295) 12/22/23 14:16 Calcium 9.1 mg/dL (8.5-10.5) 12/22/23 14:16 Total Bilirubin 0.5 mg/dL (0.15-1.2) 12/22/23 14:16 AST 21 U/L (0-32) 12/22/23 14:16 ALT 21 U/L (0-33) 12/22/23 14:16 Alkaline Phosphatase 93 U/L (35-105) 12/22/23 14:16 Total Protein 6.6 g/dL (6.6-8.7) 12/22/23 14:16 Albumin 3.5 g/dL (3.5-5.2) 12/22/23 14:16 Globulin 3.1 g/dL (1.3-4.6) 12/22/23 14:16 No radiology studies performed this visit Discharge Plan Discharge Patient Disposition: Home Clinical Impression: Black stool Condition: Stable Prescriptions: No Action cholecalciferol (vitamin D3) [Vitamin D3] 125 mcg (5,000 unit) tablet 5,000 unit PO QAM Vision Formula (with lutein) 1,000 unit-200 mg-60 unit-2 mg tablet 1 tab PO BEDTIME krill oil 500 mg capsule 500 mg PO BEDTIME alendronate 70 mg tablet 70 mg PO Q7D Qty: 12 4RF diphenhydramine HCl [Benadryl] 25 mg Capsule 25 mg PO BEDTIME PRN (Reason: Sleep) citalopram 10 mg tablet 10 mg PO DAILY Rx Instructions: TAKE ONE TABLET BY MOUTH EVERY DAY NEEDED FOR ANXIETY furosemide 20 mg tablet 20 mg PO DAILY Rx Instructions: TAKE ONE TABLET BY MOUTH EVERY DAY ezetimibe 10 mg tablet 10 mg PO DAILY Rx Instructions: TAKE ONE TABLET BY MOUTH EVERY MORNING aspirin 81 mg tablet,delayed release (DR/EC) 81 mg PO BID 35 Days Qty: 70 0RF Carafate 1 gram tablet 1 g PO BID 28 Days Qty: 56 0RF pantoprazole 40 mg tablet,delayed release (DR/EC) 40 mg PO Q12H 30 Days Qty: 60 0RF Rx Instructions: TAKE ONE TABLET BY MOUTH TWICE DAILY oxycodone 5 mg tablet 5 mg PO Q6H PRN (Reason: pain postop) 7 Days Qty: 28 0RF Calcium 600 + D(3) 600 mg-10 mcg (400 unit) tablet 1 tab PO DAILY 30 Days Qty: 30 0RF Procto-Med HC 2.5 % cream with perineal applicator [address] QID 21 Days Qty: 30 0RF Discharge Orders: Discharge ED (Routine); Ordered 12/22/23 Ordered By: Dipti Frye Referrals: Carine Colbert MD [Primary Care Provider] - 4-7 days Discharge Diet: Advance as tolerated Discharge Activity: Resume usual activity Coding Level of Care Code ED [employer]ist for Kei Dunahm
[2023-12-22 16:11] VITALS: BP 108/63; PULSE 85; RESP 18; TEMP 36.7; O2SAT 96
== END 2023-12-22 16:13 | disposition home or self-care (01) ==
PROVIDERS: Emergency Provider Emergency Medicine; PCP Family Medicine
DX: R19.5 Other fecal abnormalities (principal); Z79.82 Long term (current) use of aspirin; I10 Essential (primary) hypertension; E78.5 Hyperlipidemia, unspecified; I51.81 Takotsubo syndrome
CPT/HCPCS: 36415; 80053; 85025; 85610; 99283

== ENCOUNTER → 2023-12-29 09:46 | Outpatient (BNVA) | payer MEDICARE, OTHER, SELFPAY | PROVIDERS: PCP Family Medicine; Visit Provider Physician Assistant | DX: M25.551 Pain in right hip (principal); Z96.641 Presence of right artificial hip joint | CPT/HCPCS: 73502; 99024 ==

== ENCOUNTER → 2024-01-29 10:53 | Outpatient (BNVA) | payer MEDICARE, OTHER, SELFPAY | PROVIDERS: PCP Family Medicine; Visit Provider Nurse Practitioner Family | DX: N39.0 Urinary tract infection, site not specified (principal) | CPT/HCPCS: 81000; 87086 ==

== ENCOUNTER → 2024-02-11 09:10 | Outpatient (BNVA) | payer MEDICARE, OTHER, SELFPAY | PROVIDERS: PCP Family Medicine; Visit Provider Physician Assistant | DX: Z96.641 Presence of right artificial hip joint (principal); M16.11 Unilateral primary osteoarthritis, right hip | CPT/HCPCS: 73502; 99024 ==

== ENCOUNTER → 2024-04-18 15:10 | Outpatient (BNVA) | payer MEDICARE, OTHER, SELFPAY | PROVIDERS: PCP Family Medicine; Visit Provider Internal Medicine Cardiovascular Disease | DX: I51.81 Takotsubo syndrome (principal) | CPT/HCPCS: 99213 ==

== ENCOUNTER → 2024-06-09 08:48 | Outpatient (BNVA) | payer MEDICARE, OTHER, SELFPAY | PROVIDERS: PCP Family Medicine; Visit Provider Physician Assistant | DX: Z96.641 Presence of right artificial hip joint (principal); M16.11 Unilateral primary osteoarthritis, right hip | CPT/HCPCS: 73502; 99213 ==

== ENCOUNTER → 2024-07-18 13:27 | Outpatient (BNVA) | payer MEDICARE, OTHER, SELFPAY | PROVIDERS: PCP Nurse Practitioner Family; Visit Provider Nurse Practitioner Family | DX: R50.9 Fever, unspecified (principal); R30.0 Dysuria | CPT/HCPCS: 81000; 81003; 87086; 87486; 87581; 87633 ==

== ENCOUNTER → 2024-08-15 10:06 | Outpatient (BNVA) | payer MEDICARE, OTHER, SELFPAY | PROVIDERS: Family Provider Nurse Practitioner Family; PCP Nurse Practitioner Family; Visit Provider Nurse Practitioner Family | DX: I10 Essential (primary) hypertension (principal); R19.7 Diarrhea, unspecified; R73.9 Hyperglycemia, unspecified; K92.2 Gastrointestinal hemorrhage, unspecified; M85.89 Other specified disorders of bone density and structure, multiple sites | CPT/HCPCS: 80053; 80061; 82274; 82306; 82607; 83036; 83735; 84443; 85025; 87045; 87177; 87209; 87338; 87427; 87449; 87493 ==

== ENCOUNTER → 2024-08-29 10:49 | Outpatient (BNVA) | payer MEDICARE, OTHER, SELFPAY | PROVIDERS: Family Provider Nurse Practitioner Family; PCP Nurse Practitioner Family; Visit Provider Nurse Practitioner Family | DX: K52.9 Noninfective gastroenteritis and colitis, unspecified (principal) | CPT/HCPCS: G0328 ==

== ENCOUNTER → 2024-08-31 09:40 | Outpatient (BNVA) | payer MEDICARE, OTHER, SELFPAY | PROVIDERS: Family Provider Nurse Practitioner Family; PCP Nurse Practitioner Family; Visit Provider Nurse Practitioner Family | DX: D72.829 Elevated white blood cell count, unspecified (principal) | CPT/HCPCS: 85025 ==

== ENCOUNTER → 2024-09-05 09:34 | Outpatient (BNVA) | payer MEDICARE, OTHER, SELFPAY | PROVIDERS: Family Provider Nurse Practitioner Family; PCP Nurse Practitioner Family; Visit Provider Nurse Practitioner Family | DX: A04.72 Enterocolitis due to Clostridium difficile, not specified as recurrent (principal) | CPT/HCPCS: 87493 ==

== ENCOUNTER → 2024-09-13 09:06 | Outpatient (BNVA) | payer MEDICARE, OTHER, SELFPAY | PROVIDERS: Family Provider Nurse Practitioner Family; PCP Nurse Practitioner Family; Visit Provider Surgery | DX: A04.72 Enterocolitis due to Clostridium difficile, not specified as recurrent (principal) | CPT/HCPCS: 99213 ==

== ENCOUNTER → 2024-10-12 14:52 | Outpatient (BNVA) | payer MEDICARE, OTHER, SELFPAY | PROVIDERS: Family Provider Nurse Practitioner Family; PCP Nurse Practitioner Family; Visit Provider Physician Assistant | DX: M25.551 Pain in right hip (principal); M25.552 Pain in left hip; M16.12 Unilateral primary osteoarthritis, left hip; Z96.651 Presence of right artificial knee joint | CPT/HCPCS: 73523; 99213 ==

== ENCOUNTER → 2024-10-25 12:25 | Outpatient (BNVA) | payer MEDICARE, OTHER, SELFPAY | PROVIDERS: Family Provider Nurse Practitioner Family; PCP Nurse Practitioner Family; Visit Provider Internal Medicine Cardiovascular Disease | DX: I42.9 Cardiomyopathy, unspecified (principal); I10 Essential (primary) hypertension | CPT/HCPCS: 99214 ==

== ENCOUNTER → 2024-11-17 12:18 | Outpatient (BNVA) | payer MEDICARE, OTHER, SELFPAY | PROVIDERS: Family Provider Nurse Practitioner Family; PCP Nurse Practitioner Family; Visit Provider Nurse Practitioner Family | DX: R19.7 Diarrhea, unspecified (principal) | CPT/HCPCS: 87493 ==

== ENCOUNTER 2024-11-28 14:38 | Outpatient (CLI) | payer MEDICARE, OTHER, SELFPAY ==
--- NOTE | 2024-11-28 14:45 | US_ITS ---
WS: [id number] THYROID ULTRASOUND HISTORY: E04.1 - Nontoxic single thyroid nodule COMPARISON: None available. Right lobe: Prior thyroidectomy. No recurrent mass or adenopathy along the RIGHT cervical chain. Left lobe: 1.8 cm x 2.1 cm x 4.3 cm (w x ap x l). Volume: 7.7 cm3. Slightly enlarged nodular LEFT thyroid. Several predominantly spongiform nodules. Scattered cystic areas within the nodules. There is several nodules which are closely associated with each other. The largest measures approximately 0.9 x 0.5 x 1.1 cm. Isthmus: Absent. US/US thyroid 76954 IMPRESSION: 1. Status post RIGHT thyroidectomy. 2. TI-RADS 3; multiple spongiform nodules in the LEFT thyroid small caliber. R ecommend continued yearly ultrasound follow-up.
== END 2024-11-28 14:39 | disposition home or self-care (01) ==
LOC: RAD 14:39
PROVIDERS: Family Provider Nurse Practitioner Family; PCP Nurse Practitioner Family; Visit Provider Nurse Practitioner Family
DX: E04.2 Nontoxic multinodular goiter (principal); Z98.890 Other specified postprocedural states
CPT/HCPCS: 76536

== ENCOUNTER → 2024-12-02 08:51 | Outpatient (BNVA) | payer MEDICARE, OTHER, SELFPAY | PROVIDERS: Family Provider Nurse Practitioner Family; PCP Nurse Practitioner Family; Visit Provider Student in an Organized Health Care Education/Training Program | DX: M16.12 Unilateral primary osteoarthritis, left hip (principal) | CPT/HCPCS: 20610; 77002; J3301; J9999 ==

== ENCOUNTER → 2024-12-13 08:51 | Outpatient (BNVA) | payer MEDICARE, OTHER, SELFPAY | PROVIDERS: Family Provider Nurse Practitioner Family; PCP Nurse Practitioner Family; Visit Provider Physician Assistant | DX: M16.11 Unilateral primary osteoarthritis, right hip (principal) | CPT/HCPCS: 73502; 99213 ==

== ENCOUNTER → 2024-12-28 09:48 | Outpatient (BNVA) | payer MEDICARE, OTHER, SELFPAY | PROVIDERS: Family Provider Nurse Practitioner Family; PCP Nurse Practitioner Family; Visit Provider Nurse Practitioner Family | DX: I10 Essential (primary) hypertension (principal); R39.9 Unspecified symptoms and signs involving the genitourinary system; M85.89 Other specified disorders of bone density and structure, multiple sites | CPT/HCPCS: 80053; 80061; 81000; 82306; 84439; 84443; 85025 ==

== ENCOUNTER → 2025-01-03 14:12 | Outpatient (BNVA) | payer MEDICARE, OTHER, SELFPAY | PROVIDERS: Family Provider Nurse Practitioner Family; PCP Nurse Practitioner Family; Visit Provider Nurse Practitioner Family | DX: R39.9 Unspecified symptoms and signs involving the genitourinary system (principal); N39.0 Urinary tract infection, site not specified | CPT/HCPCS: 81000; 87077; 87086; 87184 ==

== ENCOUNTER 2025-01-05 13:37 | Outpatient (CLI) | payer MEDICARE, OTHER, SELFPAY ==
--- NOTE | 2025-01-05 14:00 | XR_ITS ---
WS: [id number] SCREENING DEXA SCAN [employer] CLINICAL INFORMATION: M85.89 - Other specified disorders of bone density and st... COMPARISON: 2021 FINDINGS: Lumbar scoliosis The L1-L4 bone mineral density measures 1.230 g/cm2. This corresponds to a T score score of 0.4 and Z score of 2.3. Left forearm bone mineral density measures 0.615. This corresponds to a T score of -3.0 and Z score of -0.2. XR/XR DEXA axial skeleton* [id number] IMPRESSION: Normal bone mineralization lumbar spine. Osteoporosis LEFT forearm
== END 2025-01-05 13:38 | disposition home or self-care (01) ==
LOC: RAD 13:38
PROVIDERS: Family Provider Nurse Practitioner Family; PCP Nurse Practitioner Family; Visit Provider Nurse Practitioner Family
DX: Z13.820 Encounter for screening for osteoporosis (principal); M85.89 Other specified disorders of bone density and structure, multiple sites; M80.032A Age-related osteoporosis with current pathological fracture, left forearm, initial encounter for fracture; M41.86 Other forms of scoliosis, lumbar region
CPT/HCPCS: 77080

== ENCOUNTER → 2025-03-03 13:04 | Outpatient (BNVA) | payer MEDICARE, OTHER, SELFPAY | PROVIDERS: Family Provider Nurse Practitioner Family; PCP Nurse Practitioner Family; Visit Provider Emergency Medicine | DX: B34.9 Viral infection, unspecified (principal) | CPT/HCPCS: 87400; 87426 ==